=== PATIENT | male | born 1980 | race Caucasian/White ===

== ENCOUNTER 2019-10-12 12:54 | Emergency (ER) | payer SELFPAY ==
[2019-10-12 13:13] VITALS: BP 151/93; PULSE 92; RESP 18; TEMP 36.6; O2SAT 99
--- NOTE | 2019-10-12 13:37 | ED.SKABFB ---
HPI - Skin/Abscess/Foreign Bdy General Chief complaint: Skin/Abscess/Foreign Body Stated complaint: sore under left underarm Source: patient Mode of arrival: ambulatory Limitations: no limitations History of Present Illness HPI narrative: Patient presents with a a red warm tender area under his left axilla non fluctuant currently no fever or chills but does have a tender red a nonfluctuant area under his left underarm, has tried some owsu-kgu-ssiuoiz medications with minimal relief as the history of right abscess under his right axilla approximately 4 5 months ago and was treated. Currently has a pain level of about 7/10 has tried umot-[id number]-[id number] medications with some minimal relief. Currently the area is warm nonfluctuant no drainage and it is tender to touch. complaint: abscess/boil Onset (ago): day(s) Tetanus up to date: yes Location: LUE (left axilla) Severity: moderate Severity scale (1-10): 7 Quality: aching Pain Consistency: constant Relieving factors: immobilization and movement Exacerbating factors: none Context: none Related Data Allergies Allergy/AdvReac Type Severity Reaction Status Date / Time No Known Allergies Allergy Verified 05/06/19 20:55 Review of Systems Review of Systems: All systems reviewed & are unremarkable except as noted in HPI and below PMFSH Past Medical History Medical History No significant past medical history Skin abscess Surgical History Surgical History History of skin graft Family History Family History Father Carcinoma of colon Social History Social History Smoking packs per day: 0.5 Smoking cigarettes per day: 10.0 Smoking status: Current every day smoker Alcohol intake: current Substance use: never Exam Const: General: no acute distress Orientation/consciousness: patient oriented x3 HENMT: Head: normal to inspection Eyes: Conjunctivae: conjunctivae normal Pupils: Equal, round and reactive pupils present EOM: EOMs intact bilaterally Neck: Neck: normal visual inspection Chest: Chest palpation & inspection: normal inspection of the chest Resp: Effort & Inspection: normal respiratory effort Cardio: Rate: regular rate Rhythm: regular rhythm GI: Auscultation: normal bowel sounds Back/Spine/Pelvis: Back: no CVA tenderness Skin: General skin exam: normal color Rashes: no rashes Wounds: wounds noted ( area of about 3 cm in diameter under his left axilla non fluctuant red ) Neuro: General: patient oriented x3 and moves all extremities Extrem: General: normal to inspection Psych: Mental Status: mental status grossly normal Thought content: Yes Normal thought content present Course Course Emergency Course: abscess under his right axilla currently nonfluctuant not draining it is warm and tender to touch offer the patient pain medication but he says that is pretty comfortable at this time, it is nondraining, nonfluctuant is warm tender to touch and patient will be getting a IM shot of 1 g of ceftriaxone prior to discharge. Vital Signs Vital signs: Vital Signs Temperature 36.6 C 10/12/19 13:13 Pulse Rate 92 10/12/19 13:13 Respiratory Rate 18 10/12/19 13:13 Blood Pressure 151/93 H 10/12/19 13:13 Pulse Oximetry 99 10/12/19 13:13 Temperature 36.6 C 10/12/19 13:13 Pulse Rate 92 10/12/19 13:13 Respiratory Rate 18 10/12/19 13:13 Blood Pressure 151/93 H 10/12/19 13:13 Pulse Oximetry 99 10/12/19 13:13 MDM - Skin/Abscess/Foreign Bdy Differential Diagnosis Differential diagnosis: Likely abscess of skin or subcutaneous tissue Critical Care Time Critical Care Time Critical Care Time: No Discharge Plan Discharge Clinical Impression: Skin abscess Qualifiers: Site of cutaneous absce
[2019-10-12] MEDS: cefTRIAXone 1 GM VIAL IM (13:43)
== END 2019-10-12 14:04 | disposition home or self-care (01) ==
PROVIDERS: Emergency Provider Emergency Medicine
DX: L02.412 Cutaneous abscess of left axilla (principal); L03.112 Cellulitis of left axilla
CPT/HCPCS: 96372; 99283; J0696

== ENCOUNTER 2019-10-13 23:13 | Emergency (ER) | payer SELFPAY ==
[2019-10-13 23:26] VITALS: BP 154/92; PULSE 93; RESP 18; TEMP 36.6; O2SAT 97
--- NOTE | 2019-10-13 23:26 | ED.WOUNDLAC ---
HPI - Wound/Laceration General Chief Complaint: Wound/Laceration Stated Complaint: Boil on left armpit Time Seen by Provider: 10/13/19 23:26 Source: patient Mode of arrival: ambulatory Limitations: no limitations History of Present Illness HPI narrative: 39-year-old man with a history of axillary abscesses comes in today complaining of blood and pus draining from his left axilla where he was diagnosed with an abscess yesterday and placed on Augmentin. Patient states that he didn't realize it was draining. He denies fever, nausea, vomiting or arm symptoms such as numbness, tingling or weakness. Onset (ago): day(s) (2-3) Location: other ( Left axilla) Associated symptoms: pain and other ( drainage) Treatments prior to arrival: bandage, NSAIDS and other ( antibiotics) Related Data Allergies Allergy/AdvReac Type Severity Reaction Status Date / Time No Known Allergies Allergy Verified 05/06/19 20:55 Review of Systems Constitutional: Constitutional: Denies chills, Denies fever(s) and Denies weakness Eyes: Eyes: Denies change in vision and Denies photophobia ENT: Denies dysphagia, Denies nasal congestion and Denies sore throat Cardiovascular: Cardiovascular: Denies chest pain and Denies radiating jaw, neck or arm pain Respiratory: Respiratory: Denies cough, Denies dyspnea and Denies wheezing Gastrointestinal: Gastrointestinal: Denies abdominal pain, Denies nausea and Denies vomiting Genitourinary: Genitourinary: Denies hematuria, Denies oliguria and Denies dysuria Musculoskeletal: Musculoskeletal: Denies back pain, Denies arthralgias and Denies joint swelling Integumentary/Breasts: Skin/Breast: Reports as per HPI, Denies pruritus, Denies erythema and Denies rash Neurologic: Denies vertigo, Denies dizziness and Denies syncope Psychiatric: Psychiatric: Denies anxiety and Denies depression Hematologic/Lymphatic: Hematologic/Lymphatic: Denies easy bleeding and Denies easy bruising Allergic/Immunologic: Allergic/Immunologic: Denies lip swelling and Denies wheezing PMFSH Past Medical History Medical History No significant past medical history Skin abscess Surgical History Surgical History History of skin graft Social History Social History Smoking packs per day: 0.5 Smoking cigarettes per day: 10.0 Smoking status: Current every day smoker Alcohol intake: current Substance use: never Exam Const: General: alert Nutritional Appearance: thin Orientation/consciousness: patient oriented x3 Limitations: no limitations Other: mild acute distress. HENMT: Mouth: Yes moist mucous membranes Eyes: Conjunctivae: conjunctivae normal Pupils: Equal, round and reactive pupils present EOM: EOMs intact bilaterally Resp: Effort & Inspection: normal respiratory effort and not labored Auscultation: clear to auscultation bilaterally, no rales, no rhonchi and no wheezes Cardio: Rate: regular rate Rhythm: regular rhythm Heart sounds: no murmurs GI: GI Palp: Yes Soft to palpation, No Tenderness to palpation present (GI), Yes Guarding due to palpation present (GI) and Yes Rigid due to palpation Skin: General skin exam: normal color, no jaundice and no pallor Rashes: no rashes Other: 3 x 2 cm indurated area in the left axilla. Is minimal erythema. There is a central punctum that is draining blood and pus. Neuro: General: patient oriented x3, moves all extremities, no focal motor deficits and CN's II-XI intact bilaterally Speech: normal speech Extrem: General: normal to inspection and no clubbing, cyanosis or edema Psych: Appearance: grossly normal and well kempt Mental Status: mental status grossly normal Affect: normal affect Attitude: cooperative Thought content: Yes Normal thought content present Discharge Plan Discharge Clinical Im
[2019-10-14 00:20] VITALS: BP 130/75; PULSE 85; RESP 20; TEMP 36.6; O2SAT 98
== END 2019-10-14 00:28 | disposition home or self-care (01) ==
PROVIDERS: Emergency Provider Emergency Medicine
DX: L02.412 Cutaneous abscess of left axilla (principal); F17.200 Nicotine dependence, unspecified, uncomplicated
CPT/HCPCS: 87070; 87077; 87186; 87205; 99283

== ENCOUNTER 2020-10-07 08:48 | Emergency (ER) | payer OTHER, SELFPAY ==
--- NOTE | ~2020-10-07 | XR_ITS ---
EXAMINATION: XR elbow LT 2V DATE: 10/07/2020 09:24 INDICATION: Left elbow injury. TECHNIQUE: 2 views of left elbow were obtained. COMPARISON: None. FINDINGS: Bone alignment is normal. No fracture. Joint spaces are normal. There is an enthesophyte at lateral humeral epicondyle. No elbow joint effusion. IMPRESSION: 1. No fracture. Reviewed, dictated and finalized at location B. IMPRESSION: 1. No fracture.
[2020-10-07 09:00] VITALS: BP 153/90; PULSE 107; RESP 20; TEMP 36.7; O2SAT 98
--- NOTE | 2020-10-07 09:36 | WC.ED.TRAUMA ---
HPI - Trauma General Chief Complaint: Extremity Injury, Upper Stated Complaint: HURT ELBOW AT WORK Source: patient Mode of arrival: ambulatory Limitations: no limitations History of Present Illness HPI narrative: this is a 40-year-old male that works for [employer] that was doing some heavy lifting while at work causing some pain and tenderness in his medial aspect of his left elbow has good range of motion with some stronger brisk radial pulse on the left has tenderness in the medial aspect of his left elbow that he rates about a currently a 2/10 at occurred on Wednesday and has taking some ryuu-ova-xrybjyp medication. complaint: injury Onset (ago): day(s) Location: other ( left elbow) Location - Extremities: Left: elbow ( pain medial aspect of his elbow with palpation) Severity scale (1-10): 2 Associated symptoms: denies other symptoms Related Data Home Medications Medication Instructions Recorded Confirmed No Home Medications 10/07/20 10/07/20 Allergies Allergy/AdvReac Type Severity Reaction Status Date / Time No Known Allergies Allergy Verified 05/06/19 20:55 Review of Systems Review of Systems: All systems reviewed & are unremarkable except as noted in HPI and below PMFSH Past Medical History Medical History (Updated 10/07/20 @ 09:40 by Alex Nelson MD) No significant past medical history Skin abscess Surgical History Surgical History History of skin graft Family History Family History Father Carcinoma of colon Social History Social History Smoking packs per day: 0.5 Smoking cigarettes per day: 10.0 Smoking status: Current every day smoker Alcohol intake: current Substance use: never Exam Const: General: no acute distress and alert Orientation/consciousness: patient oriented x3 HENMT: Head: normal to inspection and contusion Eyes: Conjunctivae: conjunctivae normal Pupils: Equal, round and reactive pupils present Direct Ophthalmoscopy: no photophobia Neck: Neck: normal visual inspection, no lymphadenopathy and no meningeal signs Chest: Chest palpation & inspection: normal inspection of the chest Resp: Effort & Inspection: normal respiratory effort Cardio: Rate: regular rate Rhythm: regular rhythm : Testes: Testes normal Back/Spine/Pelvis: Back: no CVA tenderness Skin: General skin exam: normal color Rashes: no rashes Neuro: General: patient oriented x3, moves all extremities, no meningeal signs and no focal motor deficits Extrem: Other: Tender medial aspect of left elbow with palpation has good range of motion. Psych: Appearance: grossly normal Mental Status: mental status grossly normal Affect: normal affect Course Course Emergency Course: Patient here today pain level is 2/10 is comfortable, and reviewed his x-ray findings with patient and advised brace that he currently has and [id number] naproxen. Vital Signs Vital signs: Vital Signs Temperature 36.7 C 10/07/20 09:00 Pulse Rate 107 H 10/07/20 09:00 Respiratory Rate 20 10/07/20 09:00 Blood Pressure 153/90 H 10/07/20 09:00 Pulse Oximetry 98 10/07/20 09:00 Temperature 36.7 C 10/07/20 09:00 Pulse Rate 107 H 10/07/20 09:00 Respiratory Rate 20 10/07/20 09:00 Blood Pressure 153/90 H 10/07/20 09:00 Pulse Oximetry 98 10/07/20 09:00 Critical Care Time Critical Care Time Critical Care Time: No Discharge Plan Discharge Clinical Impression: Elbow strain Qualifiers: Encounter type: initial encounter Laterality: left Qualified Code(s): S46.912A - Strain of unspecified muscle, fascia and tendon at shoulder and upper arm level, left arm, initial encounter Patient Disposition: Home, Self-Care Condition: Stable Instructions: Antibiotic Form, Elbow Sprain (ED) Additional Instructions:
== END 2020-10-07 09:50 | disposition home or self-care (01) ==
PROVIDERS: Emergency Provider Emergency Medicine
DX: S46.912A Strain of unspecified muscle, fascia and tendon at shoulder and upper arm level, left arm, initial encounter (principal); X50.9XXA Other and unspecified overexertion or strenuous movements or postures, initial encounter
CPT/HCPCS: 73070; 99282; 99283

== ENCOUNTER 2020-10-29 10:33 | Outpatient (RCR) | payer OTHER, SELFPAY ==
--- NOTE | 2020-10-29 11:57 | OTOPEVAL ---
Thank you for referring Joe Valdovinos to [facility].? The patient is scheduled to be seen for therapy? ____x/week for ___ weeks. Please review, sign, date and return this plan of care MARGOT. I agree with and certify that the following plan of care is medically necessary. Referring Physician Date Admitting Provider: Attending Provider: Marely Craven NP Referring Provider: *OT Outpatient Evaluation Start: 10/29/20 10:35 Freq: Status: Active Protocol: Document 10/29/20 10:45 [facility] (Rec: 10/29/20 11:57 [facility] [id number]) Therapy Assessment Status Assessment Status Assessment Status Evaluation Outpatient Past Medical History Integumentary History Hx Cellulitis Yes Hx Excision Skin Lesion Yes Hx Other Skin Disorders Yes: SKIN GRAFT Other History Hx Other Surgeries Yes: skin grafting to Rt. side body Evaluation Information Problem Diagnosis L elbow pain Onset 10/05/20 Cause L elbow pain Subjective Information Patient reports that he was at Query Text:As Reported By Patient/ work on 10/05/20 and picked up Family a package and immediately felt a twinge in his elbow resulting in pain at the medial elbow. Patient reports that he seen the [employer] SUPERVISOR who recommended therapy. Patient reports that he is currently on light duty at work and can still feel pain in his left elbow when he uses that arm to balance himself with cleaning tasks and anytime he moves it too much. Patient reports that he has been trying to avoid all lifting but it is difficult to care for his 1 year old daughter. Patient reports that if he uses his left hand/arm to reach for something, move it to much, and/or lift something it is very painful. 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
--- NOTE | 2020-12-10 09:00 | OTOPEVAL ---
Thank you for referring Joe Valdovinos to [facility].? The patient is scheduled to be seen for therapy? ____x/week for ___ weeks. Please review, sign, date and return this plan of care MARGOT. I agree with and certify that the following plan of care is medically necessary. Referring Physician Date Admitting Provider: Attending Provider: Marely Craven NP Referring Provider: *OT Outpatient Evaluation Start: 10/29/20 10:35 Freq: Status: Active Protocol: Document 12/10/20 08:04 [facility] (Rec: 12/10/20 08:59 [facility] [id number]) Therapy Assessment Status Assessment Status Assessment Status Discharge Outpatient Past Medical History Integumentary History Hx Cellulitis Yes Hx Excision Skin Lesion Yes Hx Other Skin Disorders Yes: SKIN GRAFT Other History Hx Other Surgeries Yes: skin grafting to Rt. side body Evaluation Information Problem Subjective Information Patient reports that he woke Query Text:As Reported By Patient/ up feeling pain/sore all over Family his body secondary to not taking Aleve last night. He reports that all of his joints hurt and it took him longer to walk to therapy this morning. Patient reports that his left elbow doesnt hurt as much as it did and he feels that he has gotten some strength back. 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 Pain Assessment Timing of Pain Assessment Timing of Pain Assessment Re-assessment Self Report Self Report Pain Level 0 Pain Score Pain Score 0: Self Report Additional Pain Score Comments patient reports 4/10 in all joints: shoulders, hips, and wrists, etc. Upper Extremity Range of Motion Elbow/Forearm Range of Motion Left Elbow Flexion - Active 150 Elbow Extension - Active 0 Upper Extremity Muscle Strength Testing General Upper Extremity Strength Gross Upper Extremity Strength Comments L elbow: 4+/5 Hand Rn Supplemental/Pinch Strength Assessment Hand Left Rn Supplemental Strength (lbs) 62 General Exercise General Exercises Side Left Exercise Description PROM for L elbow flexion and Query Text:Record Sets, Reps, extension, supination/ Resistance, and Position pronation x 8 min PROM for wrist flexion and wrist extension with elbow held into extension x 3 reps
== END 2020-12-10 10:09 | disposition home or self-care (01) ==
LOC: CHSOT 10:33
PROVIDERS: PCP Nurse Practitioner Family; Visit Provider Nurse Practitioner Family
DX: M25.522 Pain in left elbow (principal)
CPT/HCPCS: 97035; 97110; 97140; 97165

== ENCOUNTER 2020-12-10 13:24 | Outpatient (CLI) | payer SELFPAY ==
[2020-12-10 13:41] LABS: Basophils Absolute Auto 0.09 K/mm3 (0.00-0.10); Basophils Percent Auto 0.8 % (0.0-1.0); Eosinophils Absolute Auto 0.22 K/mm3 (0.02-0.50); Eosinophils Percent Auto 2.1 % (1.0-6.0); Hematocrit 39.9 % (40.0-54.0); Immature Granulocyte Absolute 0.03 K/mm3 (0.00-0.00); Immature Granulocyte Percent A 0.3 % (0.0-0.0); Lymphocytes Absolute Auto 3.01 K/mm3 (1.10-4.50); Lymphocytes Percent Auto 28.3 % (18.0-42.0); Mean Corpuscular HGB Conc 32.6 g/dL (32.0-36.0); Mean Corpuscular Hemoglobin 30.4 pg (27.0-31.0); Mean Corpuscular Volume 93.4 fL (78.0-102.0); Mean Platelet Volume 8.3 fl (8.7-11.0); Monocytes Absolute Auto 1.19 K/mm3 (0.10-0.90); Monocytes Percent Auto 11.2 % (2.0-11.0); Neutrophils Absolute Auto 6.1 K/mm3 (1.7-7.2); Neutrophils Percent Auto 57.3 % (50.0-70.0); Platelet Count Result 432 K/mm3 (150-420); Red Blood Count 4.27 M/mm3 (4.70-6.10); Red Cell Distribution Width 14.6 % (11.6-14.4); White Blood Count 10.6 K/mm3 (4.8-10.8)
[2020-12-10 14:25] LABS: Rheumatoid Factor Screen Negative (Negative)
[2020-12-10 14:41] LABS: Alanine Aminotransferase 16 U/L (16-63); Albumin Level 3.4 g/dL (3.4-5.0); Alkaline Phosphatase 117 U/L (46-116); Anion Gap 15 mmol/L (8-16); Aspartate Amino Transferase 15 U/L (15-37); Bilirubin,Total 0.2 mg/dL (0.00-1.00); Blood Urea Nitrogen 6 mg/dL (7-18); Carbon Dioxide 26 mmol/L (21-32); Chloride 105 mmol/L (98-108); Estimated Glomerular Filt Rate > 60; Glucose 75 mg/dL (70-99); Osmolality Calculated 298 mOsm/kg (285-295); Potassium 3.9 mmol/L (3.5-5.1); Sodium 146 mmol/L (136-145); Total Protein 7.8 g/dL (6.4-8.2)
[2020-12-10 14:54] LABS: Thyroid Stimulating Hormone 0.93 uIU/mL (0.36-3.74)
[2020-12-10 14:55] LABS: Erythrocyte Sedimentation Rate 45 mm/hr (0-15)
[2020-12-13 20:45] LABS: CRP, High Sensitivity >10.0 mg/L (***)
== END 2020-12-10 13:25 | disposition home or self-care (01) ==
LOC: CHSLAB 13:30
PROVIDERS: PCP Nurse Practitioner Family; Visit Provider Nurse Practitioner Family
DX: M25.50 Pain in unspecified joint (principal); M25.522 Pain in left elbow; R63.4 Abnormal weight loss
CPT/HCPCS: 36415; 80053; 84443; 85025; 85652; 86141; 86430

== ENCOUNTER 2022-12-13 17:33 | Emergency (ER) | payer SELFPAY ==
[2022-12-13 17:44] VITALS: BP 130/78; PULSE 111; RESP 20; TEMP 36.6; O2SAT 100
--- NOTE | 2022-12-13 20:19 | PC.NURSE ---
called twice for triage no answer.
== END 2022-12-13 20:19 | disposition left against medical advice (07) ==
DX: M54.50 Low back pain, unspecified (principal)
CPT/HCPCS: 99199

== ENCOUNTER 2024-03-30 12:20 | Inpatient (IN) | payer SELFPAY ==
[2024-03-30] VITALS (7 sets, daily range): BP systolic 135–169; BP diastolic 90–102; PULSE 82–119; RESP 14–20; TEMP 36.8–37.2; O2SAT 90–96; BMI 17.5
--- NOTE | ~2024-03-30 | CT_ITS ---
EXAMINATION: CT diagnostic chest wo con DATE: 04/01/2024 19:41 INDICATION: Shortness of breath pneumonia TECHNIQUE: Computed tomography (CT) of the chest was performed with 100 mL Omnipaque-350 intravenous contrast. Automated exposure control and iterative reconstruction technique were employed. The dose-l ength product was 124.21 mGy-cm. COMPARISON: X-ray chest 03/30/2024. FINDINGS: CHEST: Thoracic aorta: No significant dilation or calcification. Lung parenchyma and airways: Segmental left lower lobe consolidation. Patchy areas of acinar and tree -in-bud opacities in the right upper lobe. Moderate diffuse acinar and tree-in-bud opacities affectin g the remaining segments of the left lower lobe. Lingular scar. Thoracic inlet, axillae and chest wall: Partially visualized cystic lesion in the right lower neck me asuring up to 2.9 cm. 3.2 cm cystic lesion over the sternum. Mild symmetric gynecomastia No thyroid m ass. No axillary lymphadenopathy. Mediastinum: No mass or lymphadenopathy. Heart and pericardium: Normal heart size. No pericardial effusion. Coronary artery calcifications: Absent. Pleura: No effusion or mass. Upper abdomen: No significant finding. Thoracic bones: No acute osseous finding in the chest. Erosive appearing arthropathy at the sternocla vicular and sternomanubrial joints. IMPRESSION: Segmental left lower lobe consolidation concerning for pneumonia. Additional right upper lobe and left lower lobe acinar/tree-in-bud opacities may represent additional sites of infection. Subcutaneous cystic lesions in the right lower neck and anterior to the sternum. 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 Reviewed, dictated and finalized at location K. AGE MAKER IMPRESSION: Segmental left lower lobe consolidation concerning for pneumonia. Additional right upper lobe and left lower lobe acinar/tree-in-bud opacities ma y represent additional sites of infection. Subcutaneous cystic lesions in the right lower neck and anterior to the sternum . Sternoclavicular and sternomanubrial erosive change, correlate for history of i nflammatory/crystalline arthropathy.
--- NOTE | ~2024-03-30 | XR_ITS ---
EXAMINATION: XR chest 2V DATE: 03/30/2024 14:06 INDICATION: Cough and shortness of breath. TECHNIQUE: Frontal and lateral views of the chest were obtained. COMPARISON: None. FINDINGS: There are airspace opacities in left lower lobe, consistent with pneumonia. There may be a small left pleural effusion. No pneumothorax. The heart size is normal. IMPRESSION: 1. Left lower lobe pneumonia. 2. Possible small left pleural effusion. Reviewed, dictated and finalized at location A. RARY AGENT
--- NOTE | 2024-03-30 13:36 | ECG_ITS ---
Test Date: 2024-03-30 14:38:33 Measurements Intervals [place] Rate: 80 P: 71 VT: 152 QRS: 73 QRSD: 97 T: 70 QT: 389 QTc: 451 Interpretive Statements SINUS RHYTHM VOLTAGE CRITERIA FOR LVH BASELINE ARTIFACT- I, II, III, AVR, AVL, AVF, V1 BORDERLINE ECG No previous ECG available for comparison Electronically Signed On 03-30-2024 14:45:53 [employer] by Ventura Grewal D.O.
--- NOTE | 2024-03-30 13:36 | ED.SOB ---
HPI - SOB/Dyspnea General Chief Complaint: Shortness of Breath/Dyspnea <Shannon Cazares PA-C - Last Filed: 03/30/24 13:38> Stated Complaint: trouble breathing <ADELE Gudino Last Filed: 03/30/24 13:38> Time Seen by Provider: 03/30/24 18:17 <Shannon Cazares PA-C - Last Filed: 03/30/24 13:38> Focused HPI: 43-year-old male presents to the emergency department for cough, congestion and dyspnea for the past few days. Patient states his family's recently sick with similar symptoms and were diagnosed with pneumonia. Reports a productive cough. Normally smokes half pack a day for 25 years. No history of COPD or asthma. GENERAL: Well-appearing, well-nourished, and in no acute distress. HEAD: Normocephalic, atraumatic. CHEST: Clear to auscultation. ?No respiratory distress. HEART: Regular rate and rhythm.? NEURO: ?Alert and oriented x3. Patient screened in triage and initial orders placed.? ?Additional care and disposition to be based upon?diagnostic testing and treatment. <Shannon Cazares PA-C - Last Filed: 03/30/24 13:38> Focused HPI: 43-year-old male presents to the emergency department for cough, congestion and dyspnea for the past few days. Patient states his family's recently sick with similar symptoms and were diagnosed with pneumonia. Reports a productive cough. Normally smokes half pack a day for 25 years. No history of COPD or asthma. GENERAL: Well-appearing, well-nourished, and in no acute distress. HEAD: Normocephalic, atraumatic. CHEST: Clear to auscultation. ?No respiratory distress. HEART: Regular rate and rhythm.? NEURO: ?Alert and oriented x3. Patient screened in triage and initial orders placed.? ?Additional care and disposition to be based upon?diagnostic testing and treatment. <ADELE Virk Last Filed: 03/30/24 20:42> Source: patient <ADELE Virk Last Filed: 03/30/24 20:42> Mode of arrival: ambulatory <Pamela Antunez PA-C - Last Filed: 03/30/24 20:42> Limitations: no limitations <Pamela Antunez PA-C - Last Filed: 03/30/24 20:42> History of Present Illness HPI Narrative: Agree with above HPI. Also reports jody ear pain and drainage. Denies fevers. Denies nausea, vomiting, diarrhea. Does admit to decreased appetite. <Pamela Antunez PA-C - Last Filed: 03/30/24 20:42> Related Data Home Medications: Home Medications Medication Instructions Recorded Confirmed No Home Medications 10/07/20 10/11/20 <Shannon Cazares PA-C - Last Filed: 03/30/24 13:38> Allergies/Adverse Reactions: Allergies Allergy/AdvReac Type Severity Reaction Status Date / Time No Known Allergies Allergy Verified 12/10/20 10:55 <Shannon Cazares PA-C - Last Filed: 03/30/24 13:38> Review of Systems Review of Systems: All systems reviewed & are unremarkable except as noted in HPI. <Pamela Antunez PA-C - Last Filed: 03/30/24 20:42> All systems reviewed & are unremarkable except as noted in HPI and below <Pamela Antunez PA-C - Last Filed: 03/30/24 20:42> PMFSH Past Medical History Medical History: Medical History Cigarette nicotine dependence No significant past medical history Skin abscess <Shannon Cazares PA-C - Last Filed: 03/30/24 13:38> Surgical History Surgical History: Surgical History History of skin graft <Shannon Cazares PA-C - Last Filed: 03/30/24 13:38> Family History Family History: Family History Father Carcinoma of colon <Shannon Cazares PA-C - Last Filed: 03/30/24 13:38> Social History Social History: Social History Smoking packs per day: 0.5 Smoking cigarettes per day: 10.0 Smoking status: Current every day smoker Alcohol intake: current Alcohol use details: 3-4 beers per day Substance use: never Substance use type: does not use Occupation/Education: occupation <Shannon Cazares PA-C - Last Filed: 03/30/24 13:38> Exam Narrative: GENERAL: Well appearing, thin, non-toxic, in no acute distress. HEAD: Normocephalic, atraumatic. TM: Jody TM perforation, R>L with erythema diffusely throughout TMs, diffuse tenderness with any palpation of ear/pinna jody. NECK: Chronic cyst like structures to R anterolateral neck, L posterolateral neck. No focal tenderness. RESPIRATORY: Airway patent, respirations nonlabored. Diffuse rhonchi in lower lobes jody, worst in LLL. No stridor distress. Frequent coughing on exam. CARDIOVASCULAR: Regular rate and rhythm without murmurs, rubs, or gallops. MUSCULOSKELETAL: Moves all extremities. No gross deformities. SKIN: Warm, dry, normal color. NEURO: A&O X3. Speech clear. PSYCHIATRIC: Appropriate mood and affect. Normal interaction. <Pamela Antunez PA-C - Last Filed: 03/30/24 20:42> Course Vital Signs Vital signs: Vital Signs Temperature 98.2 F 03/30/24 12:23 Pulse Rate 89 03/30/24 12:23 Respiratory Rate 20 03/30/24 12:23 Blood Pressure 169/102 H 03/30/24 12:23 Pulse Oximetry 96 03/30/24 12:23 Oxygen Delivery Room Air 03/30/24 12:23 Temperature 98.4 F 03/30/24 17:19 Pulse Rate 82 03/30/24 19:31 Respiratory Rate 16 03/30/24 19:31 Blood Pressure 162/96 H 03/30/24 19:31 Pulse Oximetry 96 03/30/24 19:31 Oxygen Delivery Room Air 03/30/24 12:23 <Shannon Cazares PA-C - Last Filed: 03/30/24 13:38> Vital Signs Temperature 98.2 F 03/30/24 12:23 Pulse Rate 89 03/30/24 12:23 Respiratory Rate 20 03/30/24 12:23 Blood Pressure 169/102 H 03/30/24 12:23 Pulse Oximetry 96 03/30/24 12:23 Oxygen Delivery Room Air 03/30/24 12:23 Temperature 98.4 F 03/30/24 17:19 Pulse Rate 82 03/30/24 19:31 Respiratory Rate 16 03/30/24 19:31 Blood Pressure 162/96 H 03/30/24 19:31 Pulse Oximetry 96 03/30/24 19:31 Oxygen Delivery Room Air 03/30/24 12:23 <Pamela Antunez PA-C - Last Filed: 03/30/24 20:42> MDM - SOB/Dyspnea MDM Narrative Medical decision making narrative: Patient presented to ED with nearly week-long history of URI symptoms. Family members have recently been diagnosed with pneumonia. Patient mildly hypertensive upon arrival. Improved without intervention. He is afebrile here. Oxygen ranging from 90-92% on room air upon my evaluation. CBC with white blood cell count of 12.9. CMP with sodium of 132, potassium low at 2.6, chloride low at 85. Magnesium within normal limits. BMP within normal range. Viral swabs are negative. Chest x-ray consistent with left lower lobe pneumonia with small left pleural effusion. Consistent with clinical picture. Given profound hypokalemia with new pneumonia, will admit for further evaluation, electrolyte management, IV antibiotics. 40meq IV/PO KCl given. Rocephin/azithro started in the ED. Blood cx obtained. Discussed case with Mili BRAY hospitalist, accepted patient for admission. Patient in agreement with plan and need for admission. Patient was complaining of bilateral ear pain and drainage. Exam is consistent with bilateral TM perforation. Ofloxacin ear drops started in the ED. <Pamela Antunez PA-C - Last Filed: 03/30/24 20:42> Medical Records Attestation: I reviewed the patient's medical records. <Pamela Antunez PA-C - Last Filed: 03/30/24 20:42> Lab Data Attestation: I reviewed the patient's lab results. <Pamela Antunez PA-C - Last Filed: 03/30/24 20:42> Result diagrams: 03/30/24 14:38 03/30/24 14:38 <Shannon Cazares PA-C - Last Filed: 03/30/24 13:38> Labs: Lab Results 03/30/24 Range/Units 14:38 WBC 12.9 H (4.5-10.0) K/mm3 RBC 4.28 L (4.6-6.20) M/mm3 Hgb 13.3 L (14.0-18.0) g/dL Hct 39.1 L (42.0-52.0) % MCV 91.4 (80-100) fl MCH 31.1 (26-34) pg MCHC 34.0 (32-36) g/dl RDW 14.5 (11.5-14.5) % Plt Count 428 H (150-375) k/mm3 MPV 8.7 (7.4-10.4) fl Immature Gran % (Auto) 0.9 H (0-0.5) % Neut % (Auto) 68.1 (45.5-73.1) % Lymph % (Auto) 17.0 L (18.3-44.2) % [place] % (Auto) 12.6 H (2.6-8.5) % Eos % (Auto) 0.5 (0-4.4) % Baso % (Auto) 0.9 (0.2-1.2) % Lymph # (Auto) 2.20 (0.9-3.2) K/mm3 [place] # (Auto) 1.6 H (0.1-0.6) K/mm3 Eos # (Auto) 0.1 (0-0.3) K/mm3 Baso # (Auto) 0.1 (0.0-0.1) K/mm3 Abs Immat Gran (auto) 0.12 H (0.00-0.031) K/mm3 Absolute Neuts (auto) 8.8 H (1.3-6.7) K/mm3 Absolute Nucleated RBC 0.000 (0.0-0.012) K/mm3 Nucleated RBC % 0.0 (0.0-0.2) % Sodium 132 L (137-145) mmol/L Potassium 2.6 L* (3.4-5.0) mmol/L Chloride 85 L (98-107) mmol/L Carbon Dioxide 35 H (22-30) mmol/L Anion Gap 12 (4-12) mmol/L BUN 5 L (9-20) mg/dL Creatinine 0.50 L (0.7-1.3) mg/dL Estim Creat Clear Calc 110 ml/min Estimated GFR > 60 (59 - ) Glucose 97 (65-110) mg/dL Calcium 8.8 (8.4-10.2) mg/dL Magnesium 1.9 (1.6-2.3) mg/dL Total Bilirubin 1.0 (0.2-1.3) mg/dL AST 31 (17-59) U/L ALT 17 (6-50) U/L Alkaline Phosphatase 104 (38-126) U/L NT-Pro-B Natriuret Pep 214 H (19.9-100) pg/mL Total Protein 9.0 H (6.3-8.2) g/dL Albumin 4.1 (3.5-5.1) g/dL Influenza A (RT-PCR) Negative (Negative) Influenza B (RT-PCR) Negative (Negative) RSV (RT-PCR) Negative (Negative) SARS-CoV-2 RNA (RT-PCR) Negative (Negative) <Shannon Cazares PA-C - Last Filed: 03/30/24 13:38> Lab Results 03/30/24 Range/Units 14:38 WBC 12.9 H (4.5-10.0) K/mm3 RBC 4.28 L (4.6-6.20) M/mm3 Hgb 13.3 L (14.0-18.0) g/dL Hct 39.1 L (42.0-52.0) % MCV 91.4 (80-100) fl MCH 31.1 (26-34) pg MCHC 34.0 (32-36) g/dl RDW 14.5 (11.5-14.5) % Plt Count 428 H (150-375) k/mm3 MPV 8.7 (7.4-10.4) fl Immature Gran % (Auto) 0.9 H (0-0.5) % Neut % (Auto) 68.1 (45.5-73.1) % Lymph % (Auto) 17.0 L (18.3-44.2) % [place] % (Auto) 12.6 H (2.6-8.5) % Eos % (Auto) 0.5 (0-4.4) % Baso % (Auto) 0.9 (0.2-1.2) % Lymph # (Auto) 2.20 (0.9-3.2) K/mm3 [place] # (Auto) 1.6 H (0.1-0.6) K/mm3 Eos # (Auto) 0.1 (0-0.3) K/mm3 Baso # (Auto) 0.1 (0.0-0.1) K/mm3 Abs Immat Gran (auto) 0.12 H (0.00-0.031) K/mm3 Absolute Neuts (auto) 8.8 H (1.3-6.7) K/mm3 Absolute Nucleated RBC 0.000 (0.0-0.012) K/mm3 Nucleated RBC % 0.0 (0.0-0.2) % Sodium 132 L (137-145) mmol/L Potassium 2.6 L* (3.4-5.0) mmol/L Chloride 85 L (98-107) mmol/L Carbon Dioxide 35 H (22-30) mmol/L Anion Gap 12 (4-12) mmol/L BUN 5 L (9-20) mg/dL Creatinine 0.50 L (0.7-1.3) mg/dL Estim Creat Clear Calc 110 ml/min Estimated GFR > 60 (59 - ) Glucose 97 (65-110) mg/dL Calcium 8.8 (8.4-10.2) mg/dL Magnesium 1.9 (1.6-2.3) mg/dL Total Bilirubin 1.0 (0.2-1.3) mg/dL AST 31 (17-59) U/L ALT 17 (6-50) U/L Alkaline Phosphatase 104 (38-126) U/L NT-Pro-B Natriuret Pep 214 H (19.9-100) pg/mL Total Protein 9.0 H (6.3-8.2) g/dL Albumin 4.1 (3.5-5.1) g/dL Influenza A (RT-PCR) Negative (Negative) Influenza B (RT-PCR) Negative (Negative) RSV (RT-PCR) Negative (Negative) SARS-CoV-2 RNA (RT-PCR) Negative (Negative) <Pamela Antunez PA-C - Last Filed: 03/30/24 20:42> Imaging Data Attestation: I personally reviewed and interpreted this imaging study as follows: <Pamela Antunez PA-C - Last Filed: 03/30/24 20:42> Radiologist's impression: ITS Impressions Chest X-Ray 03/30/24 14:15 IMPRESSION: 1. Left lower lobe pneumonia. 2. Possible small left pleural effusion. <ADELE Virk Last Filed: 03/30/24 20:42> ECG Data EKG #1: Attestation: I personally reviewed and interpreted this ECG as follows: <Pamela Antunez PA-C - Last Filed: 03/30/24 20:42> ECG completion date: 03/30/24 <Pamela Antunez PA-C Last Filed: 03/30/24 20:42> ECG completion time: 14:38 <ADELE Virk Last Filed: 03/30/24 20:42> EKG Interpretation: normal rate (80), sinus rhythm, non-specific ST changes and other (LVH) <ADELE Virk Last Filed: 03/30/24 20:42> Discharge Plan Discharge Clinical Impression: Pneumonia, Hypokalemia, Pleural effusion on left, Rupture of both tympanic membranes <Shannon Cazares PA-C - Last Filed: 03/30/24 13:38> Patient Disposition: Still a Patient <ADELE Gudino Last Filed: 03/30/24 13:38> Condition: Stable <ADELE Gudino Last Filed: 03/30/24 13:38> Prescriptions: No Action No Home Medications <ADELE Gudino Last Filed: 03/30/24 13:38> Follow-up/Referrals: PHYSICIAN,[facility] [Non-Staff] - <Shannon Cazares PA-C - Last Filed: 03/30/24 13:38>
[2024-03-30 14:48] LABS: Basophils Absolute Auto 0.1 K/mm3 (0.0-0.1); Basophils Percent Auto 0.9 % (0.2-1.2); Eosinophils Absolute Auto 0.1 K/mm3 (0-0.3); Eosinophils Percent Auto 0.5 % (0-4.4); Hematocrit 39.1 % (42.0-52.0); Hemoglobin 13.3 g/dL (14.0-18.0); Immature Granulocyte Absolute 0.12 K/mm3 (0.00-0.031); Immature Granulocyte Percent A 0.9 % (0-0.5); Mean Corpuscular Hemoglobin 31.1 pg (26-34); Mean Corpuscular Volume 91.4 fl (80-100); Mean Platelet Volume 8.7 fl (7.4-10.4); Monocytes Absolute Auto 1.6 K/mm3 (0.1-0.6); Monocytes Percent Auto 12.6 % (2.6-8.5); Neutrophils Absolute Auto 8.8 K/mm3 (1.3-6.7); Neutrophils Percent Auto 68.1 % (45.5-73.1); Platelet Count Result 428 k/mm3 (150-375); Red Blood Count 4.28 M/mm3 (4.6-6.20); Red Cell Distribution Width 14.5 % (11.5-14.5); White Blood Count 12.9 K/mm3 (4.5-10.0)
[2024-03-30 14:59] LABS: Alanine Aminotransferase 17 U/L (6-50); Albumin Level 4.1 g/dL (3.5-5.1); Alkaline Phosphatase 104 U/L (38-126); Anion Gap 12 mmol/L (4-12); Aspartate Amino Transferase 31 U/L (17-59); Blood Urea Nitrogen 5 mg/dL (9-20); Calcium 8.8 mg/dL (8.4-10.2); Carbon Dioxide 35 mmol/L (22-30); Chloride 85 mmol/L (98-107); Estimated CRCL calculation 110 ml/min; Estimated Glomerular Filt Rate > 60; Glucose 97 mg/dL (65-110); Magnesium 1.9 mg/dL (1.6-2.3); Potassium 2.6 mmol/L (3.4-5.0); Sodium 132 mmol/L (137-145)
[2024-03-30 15:03] LABS: NT Pro B Type Natriuretic Pept 214 pg/mL (19.9-100)
[2024-03-30 15:23] LABS: Influenza A QL RT-PCR Negative (Negative); Influenza B QL RT-PCR Negative (Negative); RSV RNA, RT-PCR Negative (Negative); SARS-CoV-2 RNA PCR Negative (Negative)
[2024-03-30] MEDS: POTASSIUM CHLORIDE 20 MEQ ER TABLET 40 MEQ PO (19:17)
[2024-03-30] MEDS: SODIUM CHLORIDE 0.9% IV 1,000 ML 999 ML IV CONT (19:17)
[2024-03-30] MEDS: POTASSIUM CHLORIDE INJ 40 MEQ in SODIUM CHLORIDE 0.9% IV 500 ML 130 MEQ IVPB (19:20)
[2024-03-30] MEDS: AZITHROMYCIN 500 MG/NS 250 ML 500 MG/250 ML BAG 250 MG IVPB (19:29)
[2024-03-30] MEDS: OFLOXACIN 0.3% OPHTH SOLN 5 ML BTL 5 DROP EACH EAR (20:26)
--- NOTE | 2024-03-30 20:40 | P.HP_ITS ---
H&P: HPI History of Present Illness Date/Time: 03/30/24 20:40 Chief Complaint: Cough, shortness of breath, ear pain. Narrative: This is a previously healthy 43-year-old male who presented to the emergency department via private vehicle for evaluation of cough, shortness of breath, and ear pain. The patient provides the following history. He has not been feeling well for nearly a week with symptoms to include congestion, cough productive of whitish colored phlegm, and bilateral ear pain. His coughing fits are so severe that he reports having several episodes of post-tussive emesis. The last 24 hours he has started to feel a bit short of breath. His appetite has been poor. Sick contacts include 2 family members who were recently diagnosed pneumonia. He has been taking [id number] cold and flu medication without much benefit. He denies fever, sweats, sinus congestion, sore throat, abdominal pain, nausea, vomiting, and diarrhea. In the ED: He was afebrile on arrival with stable vital signs. Labs were significant for WBC count of 12.9, hemoglobin 13.3, sodium 132, potassium 2.6, chloride 85, carbon dioxide 35, BUN 5, creatinine 0.50, proBNP 214. He was negative for influenza, RSV, and COVID. Chest x-ray showed left lower lobe pneumonia possible small left pleural effusion. In the ED he was started on ofloxacin due to evidence of bilateral tympanic membrane rupture. He was also given potassium chloride and was started on azithromycin and ceftriaxone. He is being admitted in this setting for further treatment. Review of Systems Review of Systems: 12 systems were reviewed and are negativ e except for as per HPI. [facility] Past Medical History Medical History Cigarette nicotine dependence Skin abscess Surgical History Surgical History History of skin graft Family History Family History Father Carcinoma of colon Heart disease Mother Cancer Social History Social History (Updated 03/31/24 @ 00:12 by Mili Capps PA-C) Social History: Surrogate medical decision maker: Rachana Auguste. Code status: Full code. Smoking packs per day: 0.5 Smoking cigarettes per day: 10.0 Smoking status: Current some day smoker Tobacco type: cigarettes Additional smoking assessment comments: stopped recently Alcohol intake: current Drinks per week: 1 Alcohol use details: 3-4 beers per day Substance use: never Substance use type: does not use Do You Feel Safe in your Home?: Yes Lack of Transportation: YES Lack of Food: Never True Current Housing: I Have Housing Concerned About Future Housing: No Difficulty Paying Gas/Electric Bills: YES Difficulty Paying for Meds: YES Currently Unemployed: YES Education: High School Diploma/GED Difficulty w/ Childcare or Family Care: No Spiritual care concerns: No Meds Home Medications and Allergies Home Medications Medication Instructions Recorded Confirmed Type ibuprofen 600 mg tablet 600 mg PO Q4H PRN Mild Pain (Scale 03/30/24 03/30/24 History Score 1-4) melatonin 5 mg tablet 5 mg PO HS PRN Sleep 03/30/24 03/30/24 History Allergies Allergy/AdvReac Type Severity Reaction Status Date / Time No Known Allergies Allergy Verified 12/10/20 10:55 Vital Signs Vital Signs - 24 hr 03/30/24 12:23 03/30/24 14:43 03/30/24 17:19 Temperature 98.2 F 98.4 F Pulse Rate 89 92 88 Respiratory Rate 20 14 16 Blood Pressure 169/102 H 135/90 140/99 H Pulse Oximetry 96 93 90 Oxygen Delivery Room Air 03/30/24 19:31 Temperature Pulse Rate 82 Respiratory Rate 16 Blood Pressure 162/96 H Pulse Oximetry 96 Oxygen Delivery Exam Narrative: General: Mildly ill-appearing gentleman the semi-Ricci position in bed in no acute distress. Weight: 49.3 kg. BMI: 17.5. HEENT: PERRL, EOMI. Sclera anicteric. Tacky mucous membranes. Neck: Supple. Respiratory: Respirations are nonlabored and lungs are clear to auscultation. Cardiovascular: Tachycardic with normal S1-S2 Gastrointestinal: Abdomen is soft, flat, nontender, and nondistended with positive bowel sounds. Skin: Warm and dry. No rash or lesions on limited exam. Extremities: No cyanosis, clubbing, or edema. Radial and pedal pulses intact. Neurological: Alert. Cranial nerves 2-12 are grossly intact. No gross focal deficits to casual conversation. Psychiatric: Pleasant and cooperative with normal mood and affect. Judgment and insight intact. H&P: Results Labs Labs: Short CBC 03/30/24 Range/Units 14:38 WBC 12.9 H (4.5-10.0) K/mm3 Hgb 13.3 L (14.0-18.0) g/dL Hct 39.1 L (42.0-52.0) % Plt Count 428 H (150-375) k/mm3 BMP 03/30/24 14:38 Sodium 132 L Potassium 2.6 L* Chloride 85 L Carbon Dioxide 35 H BUN 5 L Creatinine 0.50 L Glucose 97 Calcium 8.8 Liver Function 03/30/24 Range/Units 14:38 Total Bilirubin 1.0 (0.2-1.3) mg/dL AST 31 (17-59) U/L ALT 17 (6-50) U/L Alkaline Phosphatase 104 (38-126) U/L Albumin 4.1 (3.5-5.1) g/dL Imaging Chest X-Ray 03/30/24 14:15 IMPRESSION: 1. Left lower lobe pneumonia. 2. Possible small left pleural effusion. Assessment and Plan Assessment and plan (1) Left lower lobe pneumonia: Code(s): J18.9 - Pneumonia, unspecified organism Status: Acute (2) Rupture of both tympanic membranes: Code(s): H72.93 - Unspecified perforation of tympanic membrane, bilateral Status: Acute (3) Hypokalemia: Code(s): E87.6 - Hypokalemia Status: Acute (4) Skin abscess: Qualifiers: Laterality: left Site of cutaneous abscess: extremity Site of cutaneous abscess of extremity: axilla Qualified Code(s): L02.412 - Cutaneous abscess of left axilla Code(s): L02.91 - Cutaneous abscess, unspecified Status: Acute Plan The patient presented to the emergency department for evaluation of cough, ear pain, shortness of breath as detailed in HPI. Labs, imaging, EKG, and all reports were personally reviewed. Chest x-ray shows left lower lobe pneumonia for which he has been started on azithromycin and ceftriaxone. Attempt sputum for culture. Check Legionella and pneumococcal antigens as well as mycoplasma IgM. DuoNebs available if needed. Both tympanic membranes have ruptured, likely due to barotrauma from significant coughing, and he has been started on ofloxacin drops and will need to follow up with ENT as an outpatient. Analgesics are available. Potassium will be replaced and monitored. He has 2 skin abscesses/cysts on his neck which have been there for many years and have previously been incised. Check MRSA nares to rule out colonization. He could follow up with plastic surgery or Dermatology for definitive management. His home medications will be reviewed and resumed as appropriate. Findings and treatment plan were discussed with the patient. Questions were solicited and answered to satisfaction. The patient's medical management will be taken over by the hospitalist team in a.m. Quality VTE Prophylaxis VTE prophylaxis: pharmacologic ordered The patient has been admitted under observation status. Hospitalist MIPS Advance Care Plan I have confirmed that the patient's Advanced Care Plan is present, code status is documented, or surrogate decision maker is listed in patient medical record.: Yes Medication Reconciliation I have utilized all available resources to obtain, update and review the patients current medications (includes all prescriptions, OTC, herbals, cannabis, and nutritional supplements).: Yes
--- NOTE | 2024-03-30 21:38 | ADMGEN ---
This patient, Joe Valdovinos, was admitted to 2 Medical Room 258-01. Patient/family oriented to hospital policies and general routines including ID bracelet, bed and alarms, visiting hours, pain management, procedures, bathroom and other care routines, personal items, smoking policy, room service/diet, and visiting hours. Information on how to activate the Rapid Response Team has been discussed. Patient/Family are encouraged to report perceived risks to care and to ask questions if they do not understand what they are told or what they should do.
[2024-03-30 22:37] LABS: MRSA (PCR) NOT DETECTED (NOT DETECTE)
[2024-03-31] VITALS (13 sets, daily range): BP systolic 146–169; BP diastolic 92–98; PULSE 80–102; RESP 16–20; TEMP 36.5–37; O2SAT 94–100; BMI 18.2
[2024-03-31] MEDS: SODIUM CHLORIDE 0.9% IV 1,000 ML 75 ML IV CONT (00:20)
[2024-03-31] MEDS: MELATONIN 5 MG TABLET PO ×2 (00:34→21:59)
[2024-03-31] MEDS: guaiFENesin/CODEINE (*CRX) 200/20 MG 10 ML SYRUP PO (00:34)
[2024-03-31] MEDS: ACETAMINOPHEN 325 MG TABLET 650 MG PO (00:34)
[2024-03-31 00:37] LABS: Anion Gap 5 mmol/L (4-12); Blood Urea Nitrogen 6 mg/dL (9-20); Calcium 8.2 mg/dL (8.4-10.2); Carbon Dioxide 34 mmol/L (22-30); Chloride 94 mmol/L (98-107); Estimated CRCL calculation 136 ml/min; Estimated Glomerular Filt Rate > 60; Glucose 105 mg/dL (65-110); Potassium 3.5 mmol/L (3.4-5.0); Sodium 133 mmol/L (137-145)
[2024-03-31 06:05] LABS: Hematocrit 36.2 % (42.0-52.0); Hemoglobin 12.1 g/dL (14.0-18.0); Mean Corpuscular HGB Conc 33.4 g/dl (32-36); Mean Corpuscular Hemoglobin 31.1 pg (26-34); Mean Corpuscular Volume 93.1 fl (80-100); Mean Platelet Volume 9.3 fl (7.4-10.4); Platelet Count Result 424 k/mm3 (150-375); Red Blood Count 3.89 M/mm3 (4.6-6.20); Red Cell Distribution Width 14.8 % (11.5-14.5); White Blood Count 12.3 K/mm3 (4.5-10.0)
[2024-03-31 06:15] LABS: Anion Gap 6 mmol/L (4-12); Blood Urea Nitrogen 4 mg/dL (9-20); Calcium 8.5 mg/dL (8.4-10.2); Carbon Dioxide 33 mmol/L (22-30); Chloride 96 mmol/L (98-107); Estimated CRCL calculation 141 ml/min; Estimated Glomerular Filt Rate > 60; Glucose 99 mg/dL (65-110); Magnesium 1.9 mg/dL (1.6-2.3); Potassium 3.2 mmol/L (3.4-5.0); Sodium 135 mmol/L (137-145)
[2024-03-31] MEDS: POTASSIUM CHLORIDE 20 MEQ ER TABLET 40 MEQ PO ×2 (06:36→12:24)
--- NOTE | 2024-03-31 08:41 | PC.NURSE ---
Spoke to pharmacist Netta regarding ear drops. Packaging states it is the ophthalmic solution. Clarifying if OK for patient to receive by otic route. OK per pharmacist to do so.
[2024-03-31] MEDS: ENOXAPARIN 40 MG/0.4 ML SYRINGE SUB-Q (09:25)
[2024-03-31] MEDS: OFLOXACIN 0.3% OPHTH SOLN 5 ML BTL 5 DROP EACH EAR ×2 (09:26→17:15)
--- NOTE | 2024-03-31 11:04 | P.PNIM_ITS ---
Progress Note: A&P Assessment and Plan (1) Left lower lobe pneumonia: Code(s): J18.9 - Pneumonia, unspecified organism Status: Acute (2) Rupture of both tympanic membranes: Code(s): H72.93 - Unspecified perforation of tympanic membrane, bilateral Status: Acute (3) Hypokalemia: Code(s): E87.6 - Hypokalemia Status: Acute (4) Skin abscess: Qualifiers: Laterality: left Site of cutaneous abscess: extremity Site of cutaneous abscess of extremity: axilla Qualified Code(s): L02.412 - Cutaneous abscess of left axilla Code(s): L02.91 - Cutaneous abscess, unspecified Status: Acute Plan This is a previously healthy 43-year-old male who presented to the emergency department via private vehicle for evaluation of cough, shortness of breath, and ear pain. The patient provides the following history. He has not been feeling well for nearly a week with symptoms to include congestion, cough productive of whitish colored phlegm, and bilateral ear pain. His coughing fits are so severe that he reports having several episodes of post-tussive emesis. The last 24 hours he has started to feel a bit short of breath. His appetite has been poor. Sick contacts include 2 family members who were recently diagnosed pneumonia. He has been taking [id number] cold and flu medication without much benefit. He denies fever, sweats, sinus congestion, sore throat, abdominal pain, nausea, vomiting, and diarrhea. In the ED: He was afebrile on arrival with stable vital signs. Labs were significant for WBC count of 12.9, hemoglobin 13.3, sodium 132, potassium 2.6, chloride 85, carbon dioxide 35, BUN 5, creatinine 0.50, proBNP 214. He was negative for influenza, RSV, and COVID. Chest x-ray showed left lower lobe pneumonia possible small left pleural effusion. In the ED he was started on ofloxacin due to evidence of bilateral tympanic membrane rupture. He was also given potassium chloride and was started on azithromycin and ceftriaxone. He is being admitted in this setting for further treatment. Left lower lobe pneumonia Bilateral tympanic membrane rupture on ofloxacin drops Hypokalemia Chronic neck cyst follow-up as an outpatient basis DVT prophylaxis Lovenox Code status full code Subjective Date/time seen: 03/31/24 11:04 Interval history: No overnight events. Feeling a little better. Still have cough with clear phlegm. Short of breath with exertion. Review of Systems Review of Systems: All systems reviewed & are unremarkable except as noted in HPI and below Exam Narrative: General: Mildly ill-appearing gentleman the semi-Ricci position in bed in no acute distress. HEENT: PERRL, EOMI. Sclera anicteric. Tacky mucous membranes. Neck: Supple. Respiratory: Respirations are nonlabored and lungs are clear to auscultation. Cardiovascular: Regular rate and rhythm with normal S1-S2 Gastrointestinal: Abdomen is soft, flat, nontender, and nondistended with positive bowel sounds. Skin: Warm and dry. No rash or lesions on limited exam. Extremities: No cyanosis, clubbing, or edema. Radial and pedal pulses intact. Neurological: Alert. Cranial nerves 2-12 are grossly intact. No gross focal deficits to casual conversation. Psychiatric: Pleasant and cooperative with normal mood and affect. Judgment and insight intact. Objective Data Vital Signs Vital Signs: Vital Signs - 24 hr 03/30/24 12:23 03/30/24 14:43 03/30/24 17:19 Temperature 98.2 F 98.4 F Pulse Rate 89 92 88 Respiratory Rate 20 14 16 Blood Pressure 169/102 H 135/90 140/99 H Pulse Oximetry 96 93 90 Oxygen Delivery Room Air 03/30/24 19:31 03/30/24 21:42 03/30/24 20:00 Temperature 98.9 F Pulse Rate 82 119 H 107 H Respiratory Rate 16 20 Blood Pressure 162/96 H 162/98 H Pulse Oximetry 96 93 Oxygen Delivery 03/30/24 23:28 03/31/24 00:00 03/31/24 03:58 Temperature 97.7 F Pulse Rate 119 H 84 102 H Respiratory Rate 20 18 Blood Pressure 169/98 H Pulse Oximetry 93 96 Oxygen Delivery Room Air 03/31/24 04:00 Temperature Pulse Rate 84 Respiratory Rate Blood Pressure Pulse Oximetry Oxygen Delivery Intake/Output Intake/Output: Intake & Output 03/28/24 03/29/24 03/30/24 03/31/24 23:59 23:59 23:59 23:59 Intake Total 1300 630 Balance 1300 630 Meds/Results Medications: Active Medications Generic Name Dose Route Start Last Admin Trade Name Freq PRN Reason Stop Dose Admin Acetaminophen 650 mg 03/30/24 20:44 03/31/24 00:34 Acetaminophen 325 Mg Tablet PO 650 mg Q4H PRN Administration Mild Pain (1-3) or Fever Albuterol/Ipratropium 3 ml 03/31/24 00:14 Ipratropium 0.5 Mg/Albuterol Sulfate 2.5 Mg Ampul.Neb 3 Ml INHALATION Q6HRT PRN Shortness Of Breath Or Wheezing Enoxaparin Sodium 40 mg 03/31/24 09:00 03/31/24 09:25 Enoxaparin 40 Mg/0.4 Ml Syringe SUB-Q 40 mg DAILY FROYLAN Administration Guaifenesin/Codeine Phosphate 10 ml 03/31/24 00:11 03/31/24 00:34 Guaifenesin/Codeine (*Crx) 200/20 Mg 10 Ml Syrup PO 10 ml Q4H PRN Administration Cough Ceftriaxone Sodium 1 gm in 50 mls @ 100 mls/hr 03/31/24 20:00 Rocephin 1 Gm/Ns 50 Ml IVPB Q24H FROYLAN Azithromycin 500 mg in 250 mls @ 250 mls/hr 03/31/24 20:00 Zithromax IVPB Q24H FROYLAN Sodium Chloride 1,000 mls @ 75 mls/hr 03/31/24 00:15 03/31/24 00:20 Normal Saline Iv IV CONT 03/31/24 13:34 75 mls/hr .[id number] ONE Administration Melatonin 5 mg 03/31/24 00:10 03/31/24 00:34 Melatonin 5 Mg Tablet PO 5 mg HS PRN Administration Sleep Ofloxacin 5 drop 03/31/24 09:00 03/31/24 09:26 Ofloxacin 0.3% Ophth Soln 5 Ml Btl EACH EAR 5 drop BID FROYLAN Administration Ondansetron HCl 4 mg 03/30/24 20:44 Ondansetron Inj 4 Mg/2 Ml Vial IV PUSH Q4H PRN Nausea Radiology Results: ITS Impressions Chest X-Ray 03/30/24 14:15 IMPRESSION: 1. Left lower lobe pneumonia. 2. Possible small left pleural effusion. Labs Labs: Laboratory Results - last 24 hr 03/30/24 03/30/24 03/31/24 14:38 21:23 00:14 WBC 12.9 H RBC 4.28 L Hgb 13.3 L Hct 39.1 L MCV 91.4 MCH 31.1 MCHC 34.0 RDW 14.5 Plt Count 428 H MPV 8.7 Immature Gran % (Auto) 0.9 H Neut % (Auto) 68.1 Lymph % (Auto) 17.0 L [place] % (Auto) 12.6 H Eos % (Auto) 0.5 Baso % (Auto) 0.9 Lymph # (Auto) 2.20 [place] # (Auto) 1.6 H Eos # (Auto) 0.1 Baso # (Auto) 0.1 Abs Immat Gran (auto) 0.12 H Absolute Neuts (auto) 8.8 H Absolute Nucleated RBC 0.000 Nucleated RBC % 0.0 Sodium 132 L 133 L Potassium 2.6 L* 3.5 Chloride 85 L 94 L Carbon Dioxide 35 H 34 H Anion Gap 12 5 BUN 5 L 6 L Creatinine 0.50 L 0.40 L Estim Creat Clear Calc 110 136 Estimated GFR > 60 > 60 Glucose 97 105 Calcium 8.8 8.2 L Magnesium 1.9 Total Bilirubin 1.0 AST 31 ALT 17 Alkaline Phosphatase 104 NT-Pro-B Natriuret Pep 214 H Total Protein 9.0 H Albumin 4.1 Nasal MRSA (PCR) Not detected Influenza A (RT-PCR) Negative Influenza B (RT-PCR) Negative RSV (RT-PCR) Negative SARS-CoV-2 RNA (RT-PCR) Negative 03/31/24 05:25 WBC 12.3 H RBC 3.89 L Hgb 12.1 L Hct 36.2 L MCV 93.1 MCH 31.1 MCHC 33.4 RDW 14.8 H Plt Count 424 H MPV 9.3 Immature Gran % (Auto) Neut % (Auto) Lymph % (Auto) [place] % (Auto) Eos % (Auto) Baso % (Auto) Lymph # (Auto) [place] # (Auto) Eos # (Auto) Baso # (Auto) Abs Immat Gran (auto) Absolute Neuts (auto) Absolute Nucleated RBC Nucleated RBC % Sodium 135 L Potassium 3.2 L Chloride 96 L Carbon Dioxide 33 H Anion Gap 6 BUN 4 L Creatinine 0.40 L Estim Creat Clear Calc 141 Estimated GFR > 60 Glucose 99 Calcium 8.5 Magnesium 1.9 Total Bilirubin AST ALT Alkaline Phosphatase NT-Pro-B Natriuret Pep Total Protein Albumin Nasal MRSA (PCR) Influenza A (RT-PCR) Influenza B (RT-PCR) RSV (RT-PCR) SARS-CoV-2 RNA (RT-PCR)
[2024-03-31] MEDS: guaiFENesin 12 HR 600 MG TABCR PO ×2 (12:25→19:55)
[2024-03-31] MEDS: IPRATROPIUM 0.5 MG/ALBUTEROL SULFATE 2.5 MG AMPUL.NEB 3 ML INHALATION ×2 (14:06→20:03)
[2024-03-31] MEDS: AZITHROMYCIN 500 MG/NS 250 ML 500 MG/250 ML BAG 250 MG IVPB (19:56)
[2024-04-01] VITALS (19 sets, daily range): BP systolic 144–164; BP diastolic 98–99; PULSE 75–109; RESP 18–20; TEMP 36.6–36.9; O2SAT 95–99
[2024-04-01] MEDS: IPRATROPIUM 0.5 MG/ALBUTEROL SULFATE 2.5 MG AMPUL.NEB 3 ML INHALATION ×4 (02:41→20:02)
[2024-04-01 05:51] LABS: Basophils Absolute Auto 0.1 K/mm3 (0.0-0.1); Basophils Percent Auto 0.8 % (0.2-1.2); Eosinophils Absolute Auto 0.2 K/mm3 (0-0.3); Eosinophils Percent Auto 2.2 % (0-4.4); Hematocrit 34.7 % (42.0-52.0); Hemoglobin 11.4 g/dL (14.0-18.0); Immature Granulocyte Absolute 0.04 K/mm3 (0.00-0.031); Immature Granulocyte Percent A 0.4 % (0-0.5); Lymphocytes Absolute Auto 2.48 K/mm3 (0.9-3.2); Lymphocytes Percent Auto 23.6 % (18.3-44.2); Mean Corpuscular HGB Conc 32.9 g/dl (32-36); Mean Corpuscular Hemoglobin 30.7 pg (26-34); Mean Corpuscular Volume 93.5 fl (80-100); Monocytes Absolute Auto 1.3 K/mm3 (0.1-0.6); Monocytes Percent Auto 12.3 % (2.6-8.5); Neutrophils Absolute Auto 6.4 K/mm3 (1.3-6.7); Neutrophils Percent Auto 60.7 % (45.5-73.1); Platelet Count Result 459 k/mm3 (150-375); Red Blood Count 3.71 M/mm3 (4.6-6.20); Red Cell Distribution Width 14.9 % (11.5-14.5); White Blood Count 10.5 K/mm3 (4.5-10.0)
[2024-04-01 06:05] LABS: Alanine Aminotransferase 12 U/L (6-50); Albumin Level 3.5 g/dL (3.5-5.1); Alkaline Phosphatase 79 U/L (38-126); Anion Gap 6 mmol/L (4-12); Aspartate Amino Transferase 21 U/L (17-59); Bilirubin,Total 0.3 mg/dL (0.2-1.3); Blood Urea Nitrogen 3 mg/dL (9-20); Calcium 8.9 mg/dL (8.4-10.2); Carbon Dioxide 30 mmol/L (22-30); Chloride 100 mmol/L (98-107); Estimated CRCL calculation 148 ml/min; Estimated Glomerular Filt Rate > 60; Glucose 106 mg/dL (65-110); Magnesium 1.9 mg/dL (1.6-2.3); Potassium 3.1 mmol/L (3.4-5.0); Sodium 136 mmol/L (137-145)
[2024-04-01] MEDS: ENOXAPARIN 40 MG/0.4 ML SYRINGE SUB-Q (09:24)
[2024-04-01] MEDS: guaiFENesin 12 HR 600 MG TABCR PO ×2 (09:24→20:19)
[2024-04-01] MEDS: POTASSIUM CHLORIDE 20 MEQ ER TABLET 40 MEQ PO (09:24)
[2024-04-01] MEDS: OFLOXACIN 0.3% OPHTH SOLN 5 ML BTL 5 DROP EACH EAR ×2 (09:24→17:16)
--- NOTE | 2024-04-01 12:05 | PM.IMPN ---
Progress Note: A&P Assessment and Plan (1) Left lower lobe pneumonia: Code(s): J18.9 - Pneumonia, unspecified organism Status: Acute (2) Rupture of both tympanic membranes: Code(s): H72.93 - Unspecified perforation of tympanic membrane, bilateral Status: Acute (3) Hypokalemia: Code(s): E87.6 - Hypokalemia Status: Acute (4) Skin abscess: Qualifiers: Laterality: left Site of cutaneous abscess: extremity Site of cutaneous abscess of extremity: axilla Qualified Code(s): L02.412 - Cutaneous abscess of left axilla Code(s): L02.91 - Cutaneous abscess, unspecified Status: Acute Plan This is a previously healthy 43-year-old male who presented to the emergency department via private vehicle for evaluation of cough, shortness of breath, and ear pain. The patient provides the following history. He has not been feeling well for nearly a week with symptoms to include congestion, cough productive of whitish colored phlegm, and bilateral ear pain. His coughing fits are so severe that he reports having several episodes of post-tussive emesis. The last 24 hours he has started to feel a bit short of breath. His appetite has been poor. Sick contacts include 2 family members who were recently diagnosed pneumonia. He has been taking [id number] cold and flu medication without much benefit. He denies fever, sweats, sinus congestion, sore throat, abdominal pain, nausea, vomiting, and diarrhea. In the ED: He was afebrile on arrival with stable vital signs. Labs were significant for WBC count of 12.9, hemoglobin 13.3, sodium 132, potassium 2.6, chloride 85, carbon dioxide 35, BUN 5, creatinine 0.50, proBNP 214. He was negative for influenza, RSV, and COVID. Chest x-ray showed left lower lobe pneumonia possible small left pleural effusion. In the ED he was started on ofloxacin due to evidence of bilateral tympanic membrane rupture. He was also given potassium chloride and was started on azithromycin and ceftriaxone. He is being admitted in this setting for further treatment. Left lower lobe pneumonia check procalcitonin. Nasal MRSA negative. Bilateral tympanic membrane rupture on ofloxacin drops Hypokalemia Chronic neck cyst follow-up as an outpatient basis DVT prophylaxis Lovenox Code status full code Subjective Date/time seen: 04/01/24 12:05 Interval history: Feels short of breath with exertion. Still has cough with expectoration. Remains afebrile. Tachycardic with DuoNeb treatment. Reports hearing loss. Review of Systems Review of Systems: All systems reviewed & are unremarkable except as noted in HPI and below Exam Narrative: General: Mildly ill-appearing gentleman the semi-Ricci position in bed in no acute distress. HEENT: PERRL, EOMI. Sclera anicteric. Tacky mucous membranes. Neck: Supple. Respiratory: Coarse breath sounds bilaterally mildly tachypneic Cardiovascular: Mildly tachycardic, regular rhythm with normal S1-S2 Gastrointestinal: Abdomen is soft, flat, nontender, and nondistended with positive bowel sounds. Skin: Warm and dry. No rash or lesions on limited exam. Extremities: No cyanosis, clubbing, or edema. Radial and pedal pulses intact. Neurological: Alert. Cranial nerves 2-12 are grossly intact. No gross focal deficits to casual conversation. Psychiatric: Pleasant and cooperative with normal mood and affect. Judgment and insight intact. Objective Data Vital Signs Vital Signs: Vital Signs - 24 hr 03/31/24 14:10 03/31/24 14:10 03/31/24 14:18 Temperature Pulse Rate 85 86 Respiratory Rate 20 20 Blood Pressure Pulse Oximetry 95 Oxygen Delivery Room Air Fraction of Inspired Oxygen 03/31/24 14:00 03/31/24 16:00 03/31/24 20:03 Temperature 98.6 F Pulse Rate 93 100 Respiratory Rate 16 Blood Pressure 149/92 H Pulse Oximetry 96 94 Oxygen Delivery Room Air Fraction of Inspired Oxygen 03/31/24 20:03 03/31/24 20:07 03/31/24 20:09 Temperature 98.4 F Pulse Rate 86 80 81 Respiratory Rate 20 20 20 Blood Pressure 146/93 H Pulse Oximetry 100 Oxygen Delivery Fraction of Inspired Oxygen 03/31/24 20:00 03/31/24 20:00 04/01/24 00:00 Temperature Pulse Rate 81 81 79 Respiratory Rate 20 Blood Pressure Pulse Oximetry 100 Oxygen Delivery Room Air Fraction of Inspired Oxygen 04/01/24 02:41 04/01/24 02:49 04/01/24 04:00 Temperature Pulse Rate 75 85 86 Respiratory Rate 18 20 Blood Pressure Pulse Oximetry Oxygen Delivery Fraction of Inspired Oxygen 04/01/24 04:45 04/01/24 08:01 04/01/24 08:01 Temperature 98.4 F Pulse Rate 83 92 Respiratory Rate 18 20 Blood Pressure 144/98 H Pulse Oximetry 96 96 Oxygen Delivery Room Air Fraction of Inspired Oxygen 04/01/24 08:09 Temperature Pulse Rate 88 Respiratory Rate 18 Blood Pressure Pulse Oximetry Oxygen Delivery Fraction of Inspired Oxygen Intake/Output Intake/Output: Intake & Output 03/29/24 03/30/24 03/31/24 04/01/24 23:59 23:59 23:59 23:59 Intake Total 1300 2650 800 Balance 1300 2650 800 Meds/Results Medications: Active Medications Generic Name Dose Route Start Last Admin Trade Name Freq PRN Reason Stop Dose Admin Acetaminophen 650 mg 03/30/24 20:44 03/31/24 00:34 Acetaminophen 325 Mg Tablet PO 650 mg Q4H PRN Administration Mild Pain (1-3) or Fever Albuterol/Ipratropium 3 ml 03/31/24 14:00 04/01/24 08:01 Ipratropium 0.5 Mg/Albuterol Sulfate 2.5 Mg Ampul.Neb 3 Ml INHALATION 3 ml Q6HRT FROYLAN Administration Enoxaparin Sodium 40 mg 03/31/24 09:00 04/01/24 09:24 Enoxaparin 40 Mg/0.4 Ml Syringe SUB-Q 40 mg DAILY FROYLAN Administration Guaifenesin 600 mg 03/31/24 12:00 04/01/24 09:24 Guaifenesin 12 Hr 600 Mg Tabcr PO 600 mg Q12HR FROYLAN Administration Guaifenesin/Codeine Phosphate 10 ml 03/31/24 00:11 03/31/24 00:34 Guaifenesin/Codeine (*Crx) 200/20 Mg 10 Ml Syrup PO 10 ml Q4H PRN Administration Cough Ceftriaxone Sodium 1 gm in 50 mls @ 100 mls/hr 03/31/24 20:00 03/31/24 20:25 Rocephin 1 Gm/Ns 50 Ml IVPB Infused Q24H FROYLAN Infusion Azithromycin 500 mg in 250 mls @ 250 mls/hr 03/31/24 20:00 03/31/24 20:55 Zithromax IVPB Infused Q24H FROYLAN Infusion Melatonin 5 mg 03/31/24 00:10 03/31/24 21:59 Melatonin 5 Mg Tablet PO 5 mg HS PRN Administration Sleep Ofloxacin 5 drop 03/31/24 09:00 04/01/24 09:24 Ofloxacin 0.3% Ophth Soln 5 Ml Btl EACH EAR 5 drop BID FROYLAN Administration Ondansetron HCl 4 mg 03/30/24 20:44 Ondansetron Inj 4 Mg/2 Ml Vial IV PUSH Q4H PRN Nausea Radiology Results: ITS Impressions Chest X-Ray 03/30/24 14:15 IMPRESSION: 1. Left lower lobe pneumonia. 2. Possible small left pleural effusion. Labs Labs: Laboratory Results - last 24 hr 04/01/24 05:12 WBC 10.5 H RBC 3.71 L Hgb 11.4 L Hct 34.7 L MCV 93.5 MCH 30.7 MCHC 32.9 RDW 14.9 H Plt Count 459 H MPV 9.0 Immature Gran % (Auto) 0.4 Neut % (Auto) 60.7 Lymph % (Auto) 23.6 [place] % (Auto) 12.3 H Eos % (Auto) 2.2 Baso % (Auto) 0.8 Lymph # (Auto) 2.48 [place] # (Auto) 1.3 H Eos # (Auto) 0.2 Baso # (Auto) 0.1 Abs Immat Gran (auto) 0.04 H Absolute Neuts (auto) 6.4 Absolute Nucleated RBC 0.000 Nucleated RBC % 0.0 Sodium 136 L Potassium 3.1 L Chloride 100 Carbon Dioxide 30 Anion Gap 6 BUN 3 L Creatinine 0.40 L Estim Creat Clear Calc 148 Estimated GFR > 60 Glucose 106 Calcium 8.9 Magnesium 1.9 Total Bilirubin 0.3 AST 21 ALT 12 Alkaline Phosphatase 79 Total Protein 7.0 Albumin 3.5
[2024-04-01] MEDS: methylPREDNISolone SOD SUCC 40 MG VIAL IV PUSH (12:21)
[2024-04-01 12:51] LABS: CRP 14.2 mg/dL (<1.0)
[2024-04-01 13:24] LABS: Procalcitonin 0.1 ng/mL
[2024-04-01] MEDS: AZITHROMYCIN 500 MG/NS 250 ML 500 MG/250 ML BAG IVPB (20:24)
[2024-04-01] MEDS: MELATONIN 5 MG TABLET PO (22:30)
[2024-04-02] VITALS (17 sets, daily range): BP systolic 140–161; BP diastolic 33–98; PULSE 74–95; RESP 18–20; TEMP 36.5–36.9; O2SAT 95–98
[2024-04-02] MEDS: IPRATROPIUM 0.5 MG/ALBUTEROL SULFATE 2.5 MG AMPUL.NEB 3 ML INHALATION ×4 (01:57→20:17)
[2024-04-02] MEDS: guaiFENesin 12 HR 600 MG TABCR PO ×2 (08:47→20:42)
[2024-04-02] MEDS: methylPREDNISolone SOD SUCC 40 MG VIAL IV PUSH (08:47)
[2024-04-02] MEDS: ENOXAPARIN 40 MG/0.4 ML SYRINGE SUB-Q (08:48)
[2024-04-02] MEDS: OFLOXACIN 0.3% OPHTH SOLN 5 ML BTL 5 DROP EACH EAR ×2 (08:48→16:38)
--- NOTE | 2024-04-02 12:22 | PM.IMPN ---
Progress Note: A&P Assessment and Plan (1) Left lower lobe pneumonia: Code(s): J18.9 - Pneumonia, unspecified organism Status: Acute (2) Rupture of both tympanic membranes: Code(s): H72.93 - Unspecified perforation of tympanic membrane, bilateral Status: Acute (3) Hypokalemia: Code(s): E87.6 - Hypokalemia Status: Acute (4) Skin abscess: Qualifiers: Laterality: left Site of cutaneous abscess: extremity Site of cutaneous abscess of extremity: axilla Qualified Code(s): L02.412 - Cutaneous abscess of left axilla Code(s): L02.91 - Cutaneous abscess, unspecified Status: Acute Plan This is a previously healthy 43-year-old male who presented to the emergency department via private vehicle for evaluation of cough, shortness of breath, and ear pain. The patient provides the following history. He has not been feeling well for nearly a week with symptoms to include congestion, cough productive of whitish colored phlegm, and bilateral ear pain. His coughing fits are so severe that he reports having several episodes of post-tussive emesis. The last 24 hours he has started to feel a bit short of breath. His appetite has been poor. Sick contacts include 2 family members who were recently diagnosed pneumonia. He has been taking [id number] cold and flu medication without much benefit. He denies fever, sweats, sinus congestion, sore throat, abdominal pain, nausea, vomiting, and diarrhea. In the ED: He was afebrile on arrival with stable vital signs. Labs were significant for WBC count of 12.9, hemoglobin 13.3, sodium 132, potassium 2.6, chloride 85, carbon dioxide 35, BUN 5, creatinine 0.50, proBNP 214. He was negative for influenza, RSV, and COVID. Chest x-ray showed left lower lobe pneumonia possible small left pleural effusion. In the ED he was started on ofloxacin due to evidence of bilateral tympanic membrane rupture. He was also given potassium chloride and was started on azithromycin and ceftriaxone. He is being admitted in this setting for further treatment. Left lower lobe pneumonia procalcitonin low. Nasal MRSA negative. CT chest with multifocal pneumonia. On steroid daily with improvement Bilateral tympanic membrane rupture on ofloxacin drops Hypokalemia replace and monitor Chronic neck cyst follow-up as an outpatient basis DVT prophylaxis Mayax Code status full code Subjective Date/time seen: 04/02/24 12:22 Interval history: No overnight event. Feels better. Cough persists. Review of Systems Review of Systems: All systems reviewed & are unremarkable except as noted in HPI and below Exam Narrative: General: Well-appearing gentleman the semi-Ricci position in bed in no acute distress. HEENT: PERRL, EOMI. Sclera anicteric. Tacky mucous membranes. Neck: Supple. Respiratory: Coarse breath sounds bilaterally mildly tachypneic Cardiovascular: regular rate, regular rhythm with normal S1-S2 Gastrointestinal: Abdomen is soft, flat, nontender, and nondistended with positive bowel sounds. Skin: Warm and dry. No rash or lesions on limited exam. Extremities: No cyanosis, clubbing, or edema. Radial and pedal pulses intact. Neurological: Alert. Cranial nerves 2-12 are grossly intact. No gross focal deficits to casual conversation. Psychiatric: Pleasant and cooperative with normal mood and affect. Judgment and insight intact. Objective Data Vital Signs Vital Signs: Vital Signs - 24 hr 04/01/24 13:39 04/01/24 13:39 04/01/24 13:46 Temperature Pulse Rate 77 84 Respiratory Rate 20 20 Blood Pressure Pulse Oximetry 98 Oxygen Delivery Room Air Fraction of Inspired Oxygen 21 04/01/24 16:00 04/01/24 14:00 04/01/24 19:50 Temperature 98 F Pulse Rate 109 H 86 109 H Respiratory Rate 18 18 Blood Pressure 155/99 H Pulse Oximetry 99 99 Oxygen Delivery Room Air Fraction of Inspired Oxygen 21 04/01/24 20:05 04/01/24 20:06 04/01/24 20:14 Temperature Pulse Rate 101 H 100 Respiratory Rate 20 20 Blood Pressure Pulse Oximetry 95 Oxygen Delivery Room Air Fraction of Inspired Oxygen 21 04/01/24 22:00 04/01/24 20:00 04/02/24 00:00 Temperature 98.0 F Pulse Rate 80 88 79 Respiratory Rate 18 Blood Pressure 164/98 H Pulse Oximetry 96 Oxygen Delivery Fraction of Inspired Oxygen 04/02/24 01:59 04/02/24 02:06 04/02/24 06:00 Temperature 97.7 F Pulse Rate 77 82 90 Respiratory Rate 20 20 18 Blood Pressure 161/33 H Pulse Oximetry 97 Oxygen Delivery Fraction of Inspired Oxygen 04/02/24 07:39 04/02/24 07:39 04/02/24 08:00 Temperature Pulse Rate 89 92 Respiratory Rate 20 Blood Pressure Pulse Oximetry 97 Oxygen Delivery Room Air Fraction of Inspired Oxygen 21 04/02/24 08:46 04/02/24 12:00 Temperature Pulse Rate 74 Respiratory Rate Blood Pressure Pulse Oximetry Oxygen Delivery Room Air Fraction of Inspired Oxygen Intake/Output Intake/Output: Intake & Output 03/30/24 03/31/24 04/01/24 04/02/24 23:59 23:59 23:59 23:59 Intake Total 1300 2650 1790 360 Output Total 3 Balance 1300 2650 1790 357 Meds/Results Medications: Active Medications Generic Name Dose Route Start Last Admin Trade Name Freq PRN Reason Stop Dose Admin Acetaminophen 650 mg 03/30/24 20:44 03/31/24 00:34 Acetaminophen 325 Mg Tablet PO 650 mg Q4H PRN Administration Mild Pain (1-3) or Fever Albuterol/Ipratropium 3 ml 03/31/24 14:00 04/02/24 07:39 Ipratropium 0.5 Mg/Albuterol Sulfate 2.5 Mg Ampul.Neb 3 Ml INHALATION 3 ml Q6HRT FROYLAN Administration Enoxaparin Sodium 40 mg 03/31/24 09:00 04/02/24 08:48 Enoxaparin 40 Mg/0.4 Ml Syringe SUB-Q 40 mg DAILY FROYLAN Administration Guaifenesin 600 mg 03/31/24 12:00 04/02/24 08:47 Guaifenesin 12 Hr 600 Mg Tabcr PO 600 mg Q12HR FROYLAN Administration Guaifenesin/Codeine Phosphate 10 ml 03/31/24 00:11 03/31/24 00:34 Guaifenesin/Codeine (*Crx) 200/20 Mg 10 Ml Syrup PO 10 ml Q4H PRN Administration Cough Ceftriaxone Sodium 1 gm in 50 mls @ 100 mls/hr 03/31/24 20:00 04/01/24 20:55 Rocephin 1 Gm/Ns 50 Ml IVPB Infused Q24H FROYLAN Infusion Azithromycin 500 mg in 250 mls @ 250 mls/hr 03/31/24 20:00 04/01/24 20:24 Zithromax IVPB 5 mls/hr Q24H FROYLAN Administration Melatonin 5 mg 03/31/24 00:10 04/01/24 22:30 Melatonin 5 Mg Tablet PO 5 mg HS PRN Administration Sleep Methylprednisolone Sodium Succinate 40 mg 04/01/24 12:10 04/02/24 08:47 Methylprednisolone Sod Succ 40 Mg Vial IV PUSH 40 mg DAILY FROYLAN Administration Ofloxacin 5 drop 03/31/24 09:00 04/02/24 08:48 Ofloxacin 0.3% Ophth Soln 5 Ml Btl EACH EAR 5 drop BID FROYLAN Administration Ondansetron HCl 4 mg 03/30/24 20:44 Ondansetron Inj 4 Mg/2 Ml Vial IV PUSH Q4H PRN Nausea Radiology Results: ITS Impressions Chest X-Ray 03/30/24 14:15 IMPRESSION: 1. Left lower lobe pneumonia. 2. Possible small left pleural effusion. Chest CT 04/01/24 19:47 IMPRESSION: Segmental left lower lobe consolidation concerning for pneumonia. Additional right upper lobe and left lower lobe acinar/tree-in-bud opacities may represent additional sites of infection. Subcutaneous cystic lesions in the right lower neck and anterior to the sternum. Sternoclavicular and sternomanubrial erosive change, correlate for history of inflammatory/crystalline arthropathy. Labs Labs: Laboratory Results - last 24 hr 04/01/24 05:09 C-Reactive Protein 14.2 H Procalcitonin 0.1
[2024-04-02] MEDS: AZITHROMYCIN 500 MG/NS 250 ML 500 MG/250 ML BAG IVPB (22:13)
[2024-04-02] MEDS: MELATONIN 5 MG TABLET PO (22:15)
[2024-04-03] VITALS (9 sets, daily range): BP systolic 128; BP diastolic 75; PULSE 61–92; RESP 16–18; TEMP 36.7; O2SAT 97–98
[2024-04-03 05:57] LABS: Basophils Absolute Auto 0.1 K/mm3 (0.0-0.1); Basophils Percent Auto 0.4 % (0.2-1.2); Eosinophils Absolute Auto 0.1 K/mm3 (0-0.3); Eosinophils Percent Auto 0.4 % (0-4.4); Hematocrit 38.4 % (42.0-52.0); Hemoglobin 12.3 g/dL (14.0-18.0); Immature Granulocyte Absolute 0.11 K/mm3 (0.00-0.031); Immature Granulocyte Percent A 0.7 % (0-0.5); Lymphocytes Absolute Auto 3.26 K/mm3 (0.9-3.2); Lymphocytes Percent Auto 19.6 % (18.3-44.2); Mean Corpuscular Hemoglobin 30.8 pg (26-34); Monocytes Absolute Auto 1.3 K/mm3 (0.1-0.6); Monocytes Percent Auto 7.5 % (2.6-8.5); Neutrophils Absolute Auto 11.9 K/mm3 (1.3-6.7); Neutrophils Percent Auto 71.4 % (45.5-73.1); Platelet Count Result 600 k/mm3 (150-375); Red Cell Distribution Width 15.5 % (11.5-14.5); White Blood Count 16.6 K/mm3 (4.5-10.0)
[2024-04-03 06:17] LABS: Alanine Aminotransferase 29 U/L (6-50); Albumin Level 4.1 g/dL (3.5-5.1); Alkaline Phosphatase 88 U/L (38-126); Anion Gap 12 mmol/L (4-12); Aspartate Amino Transferase 48 U/L (17-59); Bilirubin,Total 0.3 mg/dL (0.2-1.3); Blood Urea Nitrogen 13 mg/dL (9-20); Calcium 9.8 mg/dL (8.4-10.2); Carbon Dioxide 25 mmol/L (22-30); Chloride 102 mmol/L (98-107); Estimated CRCL calculation 142 ml/min; Estimated Glomerular Filt Rate > 60; Glucose 97 mg/dL (65-110); Magnesium 2.1 mg/dL (1.6-2.3); Potassium 4.8 mmol/L (3.4-5.0); Sodium 139 mmol/L (137-145)
[2024-04-03] MEDS: IPRATROPIUM 0.5 MG/ALBUTEROL SULFATE 2.5 MG AMPUL.NEB 3 ML INHALATION ×2 (07:11→13:04)
[2024-04-03] MEDS: methylPREDNISolone SOD SUCC 40 MG VIAL IV PUSH (08:21)
[2024-04-03] MEDS: ENOXAPARIN 40 MG/0.4 ML SYRINGE SUB-Q (08:21)
[2024-04-03] MEDS: OFLOXACIN 0.3% OPHTH SOLN 5 ML BTL 5 DROP EACH EAR (08:21)
[2024-04-03] MEDS: guaiFENesin 12 HR 600 MG TABCR PO (08:22)
--- NOTE | 2024-04-03 12:30 | PM.DS ---
DS: Admitting Diagnosis Discharge Date 04/03/2024 Admitting Diagnosis Shortness of breath DS: Discharge Diagnosis Discharge Diagnosis (1) Left lower lobe pneumonia: Code(s): J18.9 - Pneumonia, unspecified organism Status: Acute (2) Rupture of both tympanic membranes: Code(s): H72.93 - Unspecified perforation of tympanic membrane, bilateral Status: Acute (3) Hypokalemia: Code(s): E87.6 - Hypokalemia Status: Acute (4) Skin abscess: Qualifiers: Laterality: left Site of cutaneous abscess: extremity Site of cutaneous abscess of extremity: axilla Qualified Code(s): L02.412 - Cutaneous abscess of left axilla Code(s): L02.91 - Cutaneous abscess, unspecified Status: Acute DS: Summary Hospital Course Hospital Course: This is a previously healthy 43-year-old male who presented to the emergency department via private vehicle for evaluation of cough, shortness of breath, and ear pain. The patient provides the following history. He has not been feeling well for nearly a week with symptoms to include congestion, cough productive of whitish colored phlegm, and bilateral ear pain. His coughing fits are so severe that he reports having several episodes of post-tussive emesis. The last 24 hours he has started to feel a bit short of breath. His appetite has been poor. Sick contacts include 2 family members who were recently diagnosed pneumonia. He has been taking [id number] cold and flu medication without much benefit. He denies fever, sweats, sinus congestion, sore throat, abdominal pain, nausea, vomiting, and diarrhea. In the ED: He was afebrile on arrival with stable vital signs. Labs were significant for WBC count of 12.9, hemoglobin 13.3, sodium 132, potassium 2.6, chloride 85, carbon dioxide 35, BUN 5, creatinine 0.50, proBNP 214. He was negative for influenza, RSV, and COVID. Chest x-ray showed left lower lobe pneumonia possible small left pleural effusion. In the ED he was started on ofloxacin due to evidence of bilateral tympanic membrane rupture. He was also given potassium chloride and was started on azithromycin and ceftriaxone. He is being admitted in this setting for further treatment. Left lower lobe pneumonia procalcitonin low. Nasal MRSA negative. CT chest with multifocal pneumonia. On steroid daily with improvement. Will add on albuterol at discharge. Change antibiotic to oral Bilateral tympanic membrane rupture on ofloxacin drops Hypokalemia replace and monitor Chronic neck cyst follow-up as an outpatient basis DVT prophylaxis Lovenox Code status full code Time Spent with Patient Time attestation: Total time spent providing and/or coordinating discharge services: 35 minutes Exam Narrative: General: Well-appearing gentleman the semi-Ricci position in bed in no acute distress. HEENT: PERRL, EOMI. Sclera anicteric. Tacky mucous membranes. Neck: Supple. Respiratory: Coarse breath sounds bilaterally mildly tachypneic Cardiovascular: regular rate, regular rhythm with normal S1-S2 Gastrointestinal: Abdomen is soft, flat, nontender, and nondistended with positive bowel sounds. Skin: Warm and dry. No rash or lesions on limited exam. Extremities: No cyanosis, clubbing, or edema. Radial and pedal pulses intact. Neurological: Alert. Cranial nerves 2-12 are grossly intact. No gross focal deficits to casual conversation. Psychiatric: Pleasant and cooperative with normal mood and affect. Judgment and insight intact. DS: Data Data Completed and Pending Labs on day of discharge: Labs from last 24 hours 04/03/24 05:14 WBC 16.6 H RBC 4.00 L Hgb 12.3 L Hct 38.4 L MCV 96.0 MCH 30.8 MCHC 32.0 RDW 15.5 H Plt Count 600 H MPV 9.0 Immature Gran % (Auto) 0.7 H Neut % (Auto) 71.4 Lymph % (Auto) 19.6 [place] % (Auto) 7.5 Eos % (Auto) 0.4 Baso % (Auto) 0.4 Lymph # (Auto) 3.26 H [place] # (Auto) 1.3 H Eos # (Auto) 0.1 Baso # (Auto) 0.1 Abs Immat Gran (auto) 0.11 H Absolute Neuts (auto) 11.9 H Absolute Nucleated RBC 0.000 Nucleated RBC % 0.0 Sodium 139 Potassium 4.8 Chloride 102 Carbon Dioxide 25 Anion Gap 12 BUN 13 D Creatinine 0.40 L Estim Creat Clear Calc 142 Estimated GFR > 60 Glucose 97 Calcium 9.8 Magnesium 2.1 Total Bilirubin 0.3 AST 48 ALT 29 Alkaline Phosphatase 88 Total Protein 9.0 H Albumin 4.1 Preliminary micro results at discharge 03/30/24 19:30 Blood Culture - Preliminary Blood 03/30/24 19:30 Blood Culture - Preliminary Blood Imaging Radiologist's impression: ITS Impressions Chest X-Ray 03/30/24 14:15 IMPRESSION: 1. Left lower lobe pneumonia. 2. Possible small left pleural effusion. Chest CT 04/01/24 19:47 IMPRESSION: Segmental left lower lobe consolidation concerning for pneumonia. Additional right upper lobe and left lower lobe acinar/tree-in-bud opacities may represent additional sites of infection. Subcutaneous cystic lesions in the right lower neck and anterior to the sternum. Sternoclavicular and sternomanubrial erosive change, correlate for history of inflammatory/crystalline arthropathy. Discharge Plan Discharge Attending physician on discharge: Lester Khoury Discharging Clinician: Lester Khoury Anticipated Discharge Date/Time: 04/03/24 12:34 Patient Disposition: Home, Self-Care Activity: as tolerated Diet: regular Patient Instructions: Antibiotic Form, How to Stop Smoking (DC) Stand Alone Forms: General Discharge Information Follow-up/Referrals: UNKNOWN,DOCTOR [Primary Care Provider] - 1 Week Discharge Medications: New guaifenesin [Mucus Relief ER] 600 mg Tablet Extended Release 12hr 600 mg PO Q12HR Qty: 30 0RF ofloxacin [Ocuflox] 0.3 % Drops 5 drp EACH EAR BID Qty: 30 0RF levofloxacin 750 mg tablet 750 mg PO DAILY Qty: 5 0RF prednisone 20 mg tablet 40 mg PO DAILY 2 Days Qty: 4 0RF Continued ibuprofen 600 mg Tablet 600 mg PO Q4H PRN (Reason: Mild Pain (Scale Score 1-4)) melatonin 5 mg Tablet 5 mg PO HS PRN (Reason: Sleep) Date of admission: 04/01/24 13:46 Primary Care Provider: UNKNOWN,DOCTOR Admitting Provider: Isabel May Attending physician on admission: Isabel May Condition: Stable
[2024-04-04 10:43] LABS: Mycoplasma IgM Antibody Titer 5314 U/mL
[2024-04-06 17:53] LABS: Pneumococcal Antigen Urine NOT DETECTED
[2024-04-11 19:33] LABS: Legionella pneumophila Ag Ur NOT DETECTED
== END 2024-04-03 13:30 | disposition home or self-care (01) | DRG 139 ==
LOC: ANHED 20:42 → ANH2MED 21:12
PROVIDERS: Physician Assistant; Admitting Provider Internal Medicine; Emergency Provider Physician Assistant; Visit Provider Internal Medicine
DX: J18.9 Pneumonia, unspecified organism (principal); F17.210 Nicotine dependence, cigarettes, uncomplicated; H72.93 Unspecified perforation of tympanic membrane, bilateral; E87.6 Hypokalemia; L02.11 Cutaneous abscess of neck; E44.0 Moderate protein-calorie malnutrition; Z68.1 Body mass index [BMI] 19.9 or less, adult; Z20.822 Contact with and (suspected) exposure to COVID-19
CPT/HCPCS: 36415; 71046; 71250; 80048; 80053; 83735; 83880; 84145; 85025; 85027; 86140; 86738; 87040; 87070; 87205; 87449; 87637; 87641; 87899; 93005; 94640; 96361; 96365; 96367; 96368; 96372; 96374; 96375; 99285; A9270; G0378; J0456; J0696; J1650; J2919; J3480; J7030; J7040

== ENCOUNTER 2024-07-02 09:40 | Emergency (ER) | payer OTHER, SELFPAY ==
--- OUTSIDE RECORDS SUMMARY | 2024-07-02 09:43 | XMS_ITS | Clinical Summary ---
Author Organization [facility] Address [facility] [place] [address] Care Team Providers Care Acquisition Consultant Name Role Phone Vilma Cravenn Kaitlyn LOOSE HAND PACKER Primary Care Provider [phone] Allergies No known active allergies Medications naproxen sodium (ALEVE) 220 MG tablet Take 220 mg by mouth 2 (two) times daily with meals. Active loratadine (CLEAR-ATADINE) 10 MG tablet Take 10 mg by mouth daily. Active Active Problems No known active problems Family History Medical History Relation Comments No Known Problems Brother Cancer Father No Known Problems Mother Sudden Sister Relation Status Comments Brother Alive Father Alive Mother Alive Sister Alive Social History Tobacco Use Types Packs/Day Years Used Date Smoking Tobacco: Every Day Cigarettes Smokeless Tobacco: Never Alcohol Use Standard Drinks/Week Comments Yes 0 (1 standard drink = 0.6 oz pur e alcohol) Sex and Gender Information Value Date Recorded Sex Assigned at Not on file Legal Sex Male 5:58 PM CDT Gender Identity Not on file Sexual Orientation Not on file Last Filed Vital Signs Vital Sign Reading Time Taken Comments Blood Pressure - - Pulse - - Temperature - - Respiratory Rate - - Oxygen Saturation - - Inhaled Oxygen Concentration - - Weight 49.9 kg (110 lb) 02/25/2021 2:39 PM CDT Height 170.2 cm (5' 7 ) 02/25/2021 2:39 PM CDT Body Mass Index 17.23 02/25/2021 2:39 PM CDT Plan of Treatment Health Maintenance Due Date Last Done Comments Annual Physical 1984 Pneumococcal Vaccine: Pediatrics (0 to 5 Years) and At-Risk Patients (6 to 64 Years) (1 of 2 - PCV) 09/11/1987 Hepatitis C 09/11/1999 DTaP, Tdap and Td Vaccines ( 1 - Tdap) 2000 Hepatitis B Vaccines (1 of 3 - 19+ 3-dose series) 2000 COVID-19 Vaccine (3 - 2023-2 5 season) 2024 11/11/2020, 10/21/2020 Influenza Adult (#1) 2024 HPV Vaccines Aged Out No longer eligi ble based on patient's age to complete this topic Meningococcal B Vaccine Aged Out No l onger eligible based on patient's age to complete this topic Meningococcal Vaccine Aged Out No charleen chapo eligible based on patient's age to complete this topic RSV Immunizations Under 20 Months Aged Out No longer eligible b ased on patient's age to complete this topic Insurance [employer] Care Teams Acquisition Consultant Relationship Specialty Start Date End Date Marely [place] [address] PCP - General NURSE PRACTITIONER 12/16/20
[2024-07-02 09:51] VITALS: BP 109/76; PULSE 78; RESP 16; TEMP 36.7; O2SAT 100
[2024-07-02 09:58] VITALS: BP 100/75; PULSE 77; RESP 15; O2SAT 100
--- NOTE | 2024-07-02 10:12 | ED_ITS ---
HPI - General Adult General Chief complaint: Skin/Abscess/Foreign Body Stated complaint: boil under right arm Time Seen by Provider: 07/02/24 09:58 History of Present Illness HPI narrative: [age] year old male presents to the emergency department for evaluation for recurrent abscesses to the right axilla. Patient states he does have the intermittently in typically they resolve with warm compresses but this 1 started yesterday and has been worsening. Related Data Home Medications ?Medication ?Instructions ?Recorded ?Confirmed ?Last Taken ?Type amlodipine 5 mg tablet 5 mg PO DAILY 07/02/24 07/02/24 07/02/24 History baclofen 10 mg tablet 10 mg PO PRN PRN pain 07/02/24 07/02/24 07/01/24 History gabapentin 600 mg tablet 600 mg PO PRN PRN pain 07/02/24 07/02/24 07/02/24 History hydroxyzine pamoate 50 mg capsule 100 mg PO QID 07/02/24 07/02/24 07/02/24 History ibuprofen 800 mg tablet 800 mg PO TID 07/02/24 07/02/24 07/02/24 History propranolol 20 mg tablet 20 mg PO TID 07/02/24 07/02/24 07/02/24 History quetiapine 100 mg tablet 300 mg PO HS 07/02/24 07/02/24 Unknown History trazodone 100 mg tablet 100 mg PO HS 07/02/24 07/02/24 07/01/24 History Allergies Allergy/AdvReac Type Severity Reaction Status Date / Time No Known Allergies Allergy Verified 07/02/24 09:58 Review of Systems Review of Systems: All systems reviewed & are unremarkable except as noted in HPI and below PMFSH Past Medical History Medical History Cigarette nicotine dependence Skin abscess Surgical History Surgical History History of skin graft Family History Family History Father Carcinoma of colon Heart disease Mother Cancer Social History Social History (Updated 03/31/24 @ 00:12 by Mili Capps PA-C) Social History: Surrogate medical decision maker: Davea Foot. Code status: Full code. Smoking packs per day: 0.5 Smoking cigarettes per day: 10.0 Smoking status: Current some day smoker Tobacco type: cigarettes Additional smoking assessment comments: stopped recently Alcohol intake: current Drinks per week: 1 Alcohol use details: 3-4 beers per day Substance use: never Substance use type: does not use Do You Feel Safe in your Home?: Yes Lack of Transportation: YES Lack of Food: Never True Current Housing: I Have Housing Concerned About Future Housing: No Difficulty Paying Gas/Electric Bills: YES Difficulty Paying for Meds: YES Currently Unemployed: YES Education: High School Diploma/GED Difficulty w/ Childcare or Family Care: No Spiritual care concerns: No Exam Narrative: APPEARANCE: Well appearing, no pain, no distress, well-nourished. HEAD: normocephalic, atraumatic. EYES: PERRLA/EOMI, conjunctivae clear. NOSE: Normal no drainage EARS:TMS clear with good light reflex. THROAT: Pharynx clear, no exudate. NECK: Supple. No adenopathy, no masses. RESPIRATORY: Airway patent, respirations nonlabored. Clear to auscultation bilaterally, no rales, rhonchi, wheezing. CARDIOVASCULAR: Regular rate and rhythm without murmurs rubs or gallops. ABDOMINAL: Soft, nontender, nondistended, normal bowel sounds MUSCULOSKELETAL: Moves all extremities. Strength/ROM intact, No edema, No calf tenderness. NEURO: Alert. Cranial nerves II through XII intact. Good gait. Good coordination SKIN: Mass on left side of neck and on chest that he is having follow-up for. Suppurative hidradenitis of right axilla. No overlying erythema, tenderness to palpation Course Vital Signs Vital signs: Vital Signs Temperature 98.1 F 07/02/24 09:51 Pulse Rate 78 07/02/24 09:51 Respiratory Rate 16 07/02/24 09:51 Blood Pressure 109/76 07/02/24 09:51 Pulse Oximetry 100 07/02/24 09:51 Temperature 98.1 F 07/02/24 09:51 Pulse Rate 77 07/02/24 09:58 Respiratory Rate 15 07/02/24 09:58 Blood Pressure 100/75 07/02/24 09:58 Pulse Oximetry 100 07/02/24 09:58 Medical Decision Making MDM Narrative Medical decision making narrative: 43-year-old male presenting emergency department for recurrent suppurative hidradenitis. No abscess amenable to drainage. Patient was started clindamycin. Patient was encouraged to have close follow-up with primary care physician and potentially with dermatology. All questions concerns were addressed and patient was comfortable plan for discharge and close follow-up Differential Diagnosis Differential Diagnosis: Abscess, cellulitis, suppurative hidradenitis Vital Signs Vital Signs: Vital Signs Temperature 98.1 F 07/02/24 09:51 Pulse Rate 78 07/02/24 09:51 Respiratory Rate 16 07/02/24 09:51 Blood Pressure 109/76 07/02/24 09:51 Pulse Oximetry 100 07/02/24 09:51 Temperature 98.1 F 07/02/24 09:51 Pulse Rate 77 07/02/24 09:58 Respiratory Rate 15 07/02/24 09:58 Blood Pressure 100/75 07/02/24 09:58 Pulse Oximetry 100 07/02/24 09:58 Discharge Plan Discharge Clinical Impression: Suppurative hidradenitis Patient Disposition: Home, Self-Care Condition: Stable Instructions: Antibiotic Form, Hidradenitis Suppurativa (ED) Additional Instructions: Antibiotic as directed until completed. Warm compress as directed. Tylenol and ibuprofen for pain control. Continue to have close follow-up with her primary care physician. Patient Language: Slovenian Prescriptions: New clindamycin HCl [Cleocin HCl] 300 mg capsule 300 mg PO Q6H 7 Days Qty: 28 0RF No Action ibuprofen 800 mg tablet 800 mg PO TID quetiapine 100 mg tablet 300 mg PO HS trazodone 100 mg tablet 100 mg PO HS baclofen 10 mg tablet 10 mg PO PRN PRN (Reason: pain) amlodipine 5 mg tablet 5 mg PO DAILY gabapentin 600 mg tablet 600 mg PO PRN PRN (Reason: pain) propranolol 20 mg tablet 20 mg PO TID hydroxyzine pamoate 50 mg capsule 100 mg PO QID Follow-up/Referrals: Maynor Aviles DO [Primary Care Provider] -
--- OUTSIDE RECORDS SUMMARY | 2024-07-02 10:14 | XMS_ITS | Clinical Summary ---
Author Organization [facility] Address [facility] [place] [address] Care Team Providers Care Sql Data Architect Name Role Phone Vilma Cravenn Kaitlyn SMASH PIECER Primary Care Provider Allergies No known active allergies Medications naproxen [...] this topic Insurance [employer] [place] [employer] [place] [address] Care Teams Sql Data Architect Relationship Specialty Start Date End Date Marely Cra[place] [address] PCP - General NURSE PRACTITIONER 12/16/20
[2024-07-02] MEDS: CLINDAMYCIN HCL 150 MG CAP 300 MG PO (10:19)
== END 2024-07-02 10:31 | disposition home or self-care (01) ==
PROVIDERS: Emergency Provider Emergency Medicine; PCP Family Medicine
DX: L73.2 Hidradenitis suppurativa (principal); Z87.891 Personal history of nicotine dependence
CPT/HCPCS: 99283; A9270

== ENCOUNTER 2024-07-06 18:53 | Emergency (ER) | payer OTHER, SELFPAY ==
--- OUTSIDE RECORDS SUMMARY | 2024-07-06 18:55 | XMS_ITS | Clinical Summary ---
Author Organization [facility] Address [facility] [place] [address] Care Team Providers Care Clerical Methods Analyst Name Role Phone Vilma Cravenn Kaitlyn WEAVE DEFECT CHARTING CLERK Primary Care Provider Allergies No known active [...] this topic Insurance [employer] Care Teams Clerical Methods Analyst Relationship Specialty Start Date End Date [place]are[place] [address] PCP - General NURSE PRACTITIONER 12/16/20
[2024-07-06 19:49] VITALS: BP 130/81; PULSE 73; RESP 14; TEMP 36.5; O2SAT 100
--- NOTE | 2024-07-06 23:14 | PC.NURSE ---
No answer when called for repeat VS.
--- NOTE | 2024-07-06 23:27 | PC.NURSE ---
No answer when called for repeat VS. Not visualized in waiting room.
--- OUTSIDE RECORDS SUMMARY | 2024-07-07 00:15 | XMS_ITS | Clinical Summary ---
Author Organization [facility] Address [facility] [place] [address] Care Team Providers Care Coiled Coil Inspector Name Role Phone Vilma Cravenn Kaitlyn FUEL SYSTEM MAINTENANCE SUPERVISOR Primary Care Provider Allergies No known active [...] this topic Insurance [employer] Care Teams Coiled Coil Inspector Relationship Specialty Start Date End Date Marely [place] [address] PCP - General NURSE PRACTITIONER 12/16/20
== END 2024-07-07 00:42 | disposition left against medical advice (07) ==
LOC: ANHED 07-07 00:13
PROVIDERS: PCP Family Medicine
DX: L02.411 Cutaneous abscess of right axilla (principal)
CPT/HCPCS: 99199

== ENCOUNTER 2024-07-18 11:09 | Outpatient (CLI) | payer OTHER, SELFPAY ==
[2024-07-18 11:30] LABS: Basophils Absolute Auto 0.08 K/mm3 (0.00-0.10); Basophils Percent Auto 0.7 % (0.0-1.0); Eosinophils Absolute Auto 0.59 K/mm3 (0.02-0.50); Eosinophils Percent Auto 5.4 % (1.0-6.0); Hematocrit 36.4 % (40.0-54.0); Hemoglobin 11.3 g/dL (14.0-18.0); Immature Granulocyte Absolute 0.05 K/mm3 (0.00-0.00); Immature Granulocyte Percent A 0.5 % (0.0-0.0); Immature Platelet Fraction Pct 0.5 % (1.0-7.0); Lymphocytes Absolute Auto 2.51 K/mm3 (1.10-4.50); Lymphocytes Percent Auto 22.9 % (18.0-42.0); Mean Corpuscular Volume 90.1 fL (78.0-102.0); Mean Platelet Volume 8.2 fl (8.7-11.0); Monocytes Absolute Auto 0.99 K/mm3 (0.10-0.90); Neutrophils Absolute Auto 6.73 K/mm3 (1.70-7.20); Neutrophils Percent Auto 61.5 % (50.0-70.0); Platelet Count Result 637 K/mm3 (150-420); Red Blood Count 4.04 M/mm3 (4.70-6.10); Red Cell Distribution Width 14.8 % (11.6-14.4)
[2024-07-18 12:10] LABS: Alanine Aminotransferase 16 U/L (16-63); Albumin Level 3.4 g/dL (3.4-5.0); Alkaline Phosphatase 78 U/L (46-116); Anion Gap 7 mmol/L (4-12); Aspartate Amino Transferase 11 U/L (15-37); Bilirubin,Total 0.2 mg/dL (0.00-1.00); Blood Urea Nitrogen 10 mg/dL (7-18); CRP 10.4 mg/dL (0.0-0.9); Calcium 9.9 mg/dL (8.5-10.1); Carbon Dioxide 33 mmol/L (21-32); Chloride 101 mmol/L (98-108); Cholesterol 200 mg/dL (0-200); Estimated Glomerular Filt Rate > 60; Glucose 100 mg/dL (70-99); HDL Direct 41 mg/dL (40-60); LDL Cholesterol Calculated 147 mg/dL (<130); Osmolality Calculated 291 mOsm/kg (285-295); Sodium 141 mmol/L (136-145); Triglycerides 62 mg/dL (0-150)
[2024-07-18 12:30] LABS: Thyroid Stimulating Hormone Reflex 1.89 u/IU/mL (0.36-3.74)
[2024-07-18 12:33] LABS: Erythrocyte Sedimentation Rate 50 mm/hr (0-15)
[2024-07-18 13:07] LABS: Iron 24 ug/dL (65-175); Percent Iron Saturation 11 % (12-57)
== END 2024-07-18 11:10 | disposition home or self-care (01) ==
PROVIDERS: PCP Nurse Practitioner Family; Visit Provider Nurse Practitioner Family
DX: Z00.00 Encounter for general adult medical examination without abnormal findings (principal); R22.1 Localized swelling, mass and lump, neck; R22.31 Localized swelling, mass and lump, right upper limb; R79.89 Other specified abnormal findings of blood chemistry
CPT/HCPCS: 36415; 80053; 80061; 83036; 83540; 83550; 84443; 85025; 85055; 85652; 86140

== ENCOUNTER 2024-08-16 08:04 | Emergency (ER) | payer OTHER, SELFPAY ==
--- NOTE | ~2024-08-16 | XR_ITS ---
XR hip BI 2V w AP pelvis 08/16/2024 09:06 Indication: Hip pain Procedure: AP pelvis and 2 views each hip Comparison: No prior studies for comparison. Findings: Mild osteoarthritis of the hips. There is patchy indistinct sclerosis of the pelvis and lef t femoral head, suspicious for metastatic disease. Correlate for history of malignancy. Consider linda elation with nuclear bone scan. No acute fracture is identified. Impression: 1: Indistinct patchy sclerosis of the pelvis and left femur, suspicious for metastatic disease. Consi jeison correlation with bone scan. Reviewed, dictated and finalized at location A. Impression: 1: Indistinct patchy sclerosis of the pelvis and left femur, suspicious for met astatic disease. Consider correlation with bone scan.
[2024-08-16 08:10] VITALS: BP 116/69; PULSE 79; RESP 16; TEMP 36.3; O2SAT 100
--- OUTSIDE RECORDS SUMMARY | 2024-08-16 08:10 | XMS_ITS | Clinical Summary ---
Author Organization [facility] Address [facility] [place] [address] Care Team Providers Care Fiscal Economist Name Role Phone Vilma Cravenn Kaitlyn COPPERSMITH HELPER Primary Care Provider Allergies No known active [...] this topic Insurance [employer] Care Teams Fiscal Economist Relationship Specialty Start Date End Date Marely [place] [address] PCP - General NURSE PRACTITIONER 12/16/20
[2024-08-16] MEDS: KETOROLAC 30 MG/ML VIAL (*BKC) IM (08:39)
[2024-08-16] MEDS: HYDROcodone/acetaminophen (*CRX) 7.5-325 MG TABLET 1 TAB PO (08:39)
--- NOTE | 2024-08-16 08:48 | ED_ITS ---
HPI - General Adult General Chief complaint: Extremity Problem,Nontraumatic Stated complaint: b/l hip pain Time Seen by Provider: 08/16/24 08:07 History of Present Illness HPI narrative: 43-year-old male presents emergency department for evaluation for bilateral hip pain. Patient does have history of arthritis and does have chronic pain. Patient states his left hip had been her exam for period of time but now both hips were hurting him this morning. Patient denies any specific incident fall or injury. Patient has been taking ibuprofen and baclofen for pain control. Patient does have follow-up scheduled with his pain specialist. Related Data Home Medications ?Medication ?Instructions ?Recorded ?Confirmed ?Last Taken ?Type gabapentin 600 mg tablet 600 mg PO PRN PRN pain 07/02/24 08/07/24 07/02/24 History hydroxyzine pamoate 50 mg capsule 100 mg PO QID 07/02/24 08/07/24 07/02/24 History propranolol 20 mg tablet 20 mg PO TID 07/02/24 08/07/24 07/02/24 History trazodone 100 mg tablet 100 mg PO HS PRN sleep 07/18/24 08/07/24 Unknown History Allergies Allergy/AdvReac Type Severity Reaction Status Date / Time No Known Allergies Allergy Verified 08/16/24 08:04 Review of Systems Review of Systems: All systems reviewed & are unremarkable except as noted in HPI and below PMFSH Past Medical History Medical History Chronic pain Alcohol abuse Cigarette nicotine dependence Skin abscess Surgical History Surgical History History of skin graft Family History Family History Father Carcinoma of colon Heart disease Mother Cancer Social History Social History Social History: Surrogate medical decision maker: Rachana Auguste. Code status: Full code. Smoking packs per day: 0.5 Smoking cigarettes per day: 10.0 Years smoked: 28 Smoking pack-years: 14.00 Smoking status: Former smoker Tobacco type: cigarettes Additional smoking assessment comments: stopped recently Alcohol intake: former Alcohol use details: reports prior to 05/19/24 was drinking hard liquor constantly. Has since stopped. Substance use: never Substance use type: does not use Do You Feel Safe in your Home?: Yes Lack of Transportation: YES Lack of Food: Never True Current Housing: I Have Housing Concerned About Future Housing: No Difficulty Paying Gas/Electric Bills: YES Difficulty Paying for Meds: YES Currently Unemployed: YES Education: High School Diploma/GED Difficulty w/ Childcare or Family Care: No Spiritual care concerns: No Exam Narrative: APPEARANCE: Well appearing, no pain, no distress, well-nourished. HEAD: normocephalic, atraumatic. EYES: PERRLA/EOMI, conjunctivae clear. NOSE: Normal no drainage EARS:TMS clear with good light reflex. THROAT: Pharynx clear, no exudate. NECK: Supple. No adenopathy, no masses. RESPIRATORY: Airway patent, respirations nonlabored. Clear to auscultation bilaterally, no rales, rhonchi, wheezing. CARDIOVASCULAR: Regular rate and rhythm without murmurs rubs or gallops. ABDOMINAL: Soft, nontender, nondistended, normal bowel sounds MUSCULOSKELETAL: Moves all extremities. Strength/ROM intact, No edema, No calf tenderness. NEURO: Alert. Cranial nerves II through XII intact. Good gait. Good coordination SKIN: Warm, dry. Normal Color Course Vital Signs Vital signs: Vital Signs Temperature 97.4 F L 08/16/24 08:10 Pulse Rate 79 08/16/24 08:10 Respiratory Rate 16 08/16/24 08:10 Blood Pressure 116/69 08/16/24 08:10 Pulse Oximetry 100 08/16/24 08:10 Oxygen Delivery Room Air 08/16/24 08:10 Temperature 97.4 F L 08/16/24 08:10 Pulse Rate 74 08/16/24 09:31 Respiratory Rate 18 08/16/24 09:31 Blood Pressure 109/70 08/16/24 09:31 Pulse Oximetry 96 08/16/24 09:31 Oxygen Delivery Room Air 08/16/24 08:10 Medical Decision Making MDM Narrative Medical decision making narrative: 43-year-old male presents emergency department for evaluation for bilateral hip pain. X-ray showed Indistinct patchy sclerosis of the pelvis and left femur, suspicious for metastatic disease. Consider correlation with bone scan. Patient was provided additional medication for pain control but was also encouraged close follow-up with primary care physician for additional outpatient follow-up. Differential Diagnosis Differential Diagnosis: Hip strain, hip fracture, hip contusion Vital Signs Vital Signs: Vital Signs Temperature 97.4 F L 08/16/24 08:10 Pulse Rate 79 08/16/24 08:10 Respiratory Rate 16 08/16/24 08:10 Blood Pressure 116/69 08/16/24 08:10 Pulse Oximetry 100 08/16/24 08:10 Oxygen Delivery Room Air 08/16/24 08:10 Temperature 97.4 F L 08/16/24 08:10 Pulse Rate 74 08/16/24 09:31 Respiratory Rate 18 08/16/24 09:31 Blood Pressure 109/70 08/16/24 09:31 Pulse Oximetry 96 08/16/24 09:31 Oxygen Delivery Room Air 08/16/24 08:10 Imaging Data Radiologist's impression: Impressions Hip/Pelvis X-Ray 08/16/24 09:12 Impression: 1: Indistinct patchy sclerosis of the pelvis and left femur, suspicious for metastatic disease. Consider correlation with bone scan. Discharge Plan Discharge Clinical Impression: Bilateral hip pain Patient Disposition: Home, Self-Care Condition: Stable Instructions: Antibiotic Form Additional Instructions: Ibuprofen for pain control as directed. Your home baclofen directed for pain control. Have close follow-up with your primary care physician and they may wish to order a bone scan to better evaluate finding seen on today's x-rays. Also have follow-up with pain management. Patient Language: Filipino Prescriptions: No Action meclizine 12.5 mg tablet 12.5 mg PO BID PRN (Reason: dizziness) Qty: 30 0RF ondansetron 4 mg tablet,disintegrating 4 mg PO BID PRN (Reason: nausea and vomiting) Qty: 14 0RF baclofen 20 mg tablet 20 mg PO BID PRN (Reason: joint pain) 30 Days Qty: 60 2RF bupropion HCl [Wellbutrin XL] 300 mg tablet extended release 24 hr 300 mg PO QAM Qty: 30 2RF trazodone 100 mg tablet 100 mg PO HS PRN (Reason: sleep) quetiapine 100 mg tablet 100 mg PO HS PRN (Reason: sleep) Qty: 30 1RF Vivitrol 380 mg suspension,extended rel recon 380 mg IM MONTHLY Qty: 1 0RF amlodipine 5 mg tablet 5 mg PO DAILY Qty: 90 1RF ibuprofen 800 mg tablet 800 mg PO TID PRN (Reason: pain) Qty: 90 1RF gabapentin 600 mg tablet 600 mg PO PRN PRN (Reason: pain) propranolol 20 mg tablet 20 mg PO TID hydroxyzine pamoate 50 mg capsule 100 mg PO QID Follow-up/Referrals: Vania Herrera APRN [Primary Care Provider] -
[2024-08-16 09:31] VITALS: BP 109/70; PULSE 74; RESP 18; O2SAT 96
== END 2024-08-16 09:32 | disposition home or self-care (01) ==
PROVIDERS: Emergency Provider Emergency Medicine; PCP Nurse Practitioner Family
DX: M25.552 Pain in left hip (principal); M25.551 Pain in right hip; M19.90 Unspecified osteoarthritis, unspecified site
CPT/HCPCS: 73521; 96372; 99283; A9270; J1885

== ENCOUNTER 2024-10-20 16:07 | Outpatient (NON) | payer OTHER, SELFPAY ==
--- OUTSIDE RECORDS SUMMARY | 2024-10-20 16:11 | XMS_ITS | Clinical Summary ---
Author Organization [facility] Address [address] [place] [address] Phone Care Team Providers Care Mig Tig Welder Name Role Phone HerreraVania APRN, SCROLL SHEAR OPERATOR Primary Care Provider + Allergies No known active allergies Medications baclofen (LIORESAL) 20 MG Tablet 3 times daily. 08/11/2024 Active busPIRone (BUSPAR) 15 MG Tablet 7.5 mg 2 times daily. 08/28/2024 Active buPROPion (WELLBUTRIN) 300 MG TABLET SR 24 HR XL tablet Take 300 mg by mouth every morning. 08/20/2024 Active hydrOXYzine (VISTARIL) 50 MG Capsule 100 mg 3 times daily as needed. 08/18/2024 Active ibuprofen (MOTRIN) 800 MG Tablet 800 mg. 08/28/2024 Active amLODIPine (NORVASC) 5 MG Tablet Take 5 mg by mouth daily. 07/18/2024 Active propranolol (INDERAL) 20 MG Tablet Take 20 mg by mouth 3 times daily. 08/18/2024 Active Ferrous Sulfate (Iron) 28 MG Tablet Take by mouth daily. Active gabapentin (NEURONTIN) 600 MG Tablet 08/24/2024 Active ferrous sulfate 325 (65 Fe) MG Tablet Take 1 Tablet by mouth daily. 30 Tablet 2 09/29/2024 Active Active Problems Problem Noted Date Diagnosed Date Ankylosing spondylitis of multiple sites in spin e 09/29/2024 Lung nodules 09/29/2024 Pain in joints of both feet 08/29/2024 Bone lesion 08/29/2024 Neck mass 08/29/2024 Primary hypertension 08/29/2024 Iron deficiency anemia 08/29/2024 Lymphadenopathy, axillary 08/29/2024 Encounters Date Type Department Care Team Description 10/11/2024 11:31 AM CDT - 10/11/2024 11:59 PM CDT Hospital Encounter [facility] PET [address] [place] [address] Jose Barber MD Discharge Disposition: Discharged to home or Selfcare 10/11/2024 Travel 10/10/2024 Telephone [facility] Outpatient [address] [place] [address] Jose Barber MD Prior Authorization 09/29/2024 11:20 AM CDT Office [facility] [address] [place] [address] Jose Barber MD Pain in joints of both feet (Primary Dx); Ankylosing spondylitis of multiple sites in spine (HCC); Lymphadenopathy, axillary; Neck mass; Lung nodules; Iron deficiency anemia due to sideropenic dysphagia Discharge Disposition: Discharged to home or Selfcare 09/29/2024 Travel 09/28/2024 7:21 AM CDT - 09/28/2024 11:59 PM CDT Hospital Encounter [facility] [address] [place] [address] Provider, Not On File Discharge Disposition: Discharged to home or Selfcare 09/27/2024 Travel 09/25/2024 12:42 PM CDT - 09/25/2024 11:59 PM CDT Hospital Encounter [facility] Nuclear Medicine [address] [place] [address] Jose Barber MD Discharge Disposition: Discharged to home or Selfcare 09/25/2024 9:13 AM CDT - 09/25/2024 12:41 PM CDT Hospital Encounter [facility] Nuclear Medicine [address] [place] [address] Jose Barber MD Discharge Disposition: Discharged to home or Selfcare 09/24/2024 Travel 09/21/2024 1:02 PM CDT - 09/21/2024 11:59 PM CDT Hospital Encounter [facility] CT [address] [place] [address] Jose Barber MD Discharge Disposition: Discharged to home or Selfcare 09/21/2024 1:02 PM CDT - 09/21/2024 11:59 PM CDT Hospital Encounter [facility] CT [address] [place] [address] Jose Barber MD Discharge Disposition: Discharged to home or Selfcare 09/21/2024 Travel 08/29/2024 10:00 AM CDT Lab [facility] [address] [place] [address] Jose Barber MD Pain in joints of both feet; Bone lesion; Neck mass; Primary hypertension; Iron deficiency anemia, unspecified iron deficiency anemia type Discharge Disposition: Discharged to home or Selfcare 08/29/2024 9:20 AM CDT Office Visit [facility] [address] [place] [phone] Jose Barber MD Pain in joints of both feet (Primary Dx); Bone lesion; Neck mass; Primary hypertension; Iron deficiency anemia, unspecified iron deficiency anemia type; Lymphadenopathy, axillary Discharge Disposition: Discharged to home or Selfcare 08/29/2024 Travel from Last 3 Months Family History Medical History Relation Name Comments Colon Cancer Father Cancer Maternal Aunt Cancer Maternal Grandmother Relation Name Status Comments Father Alive Maternal Aunt Maternal Grandmother Mother Alive Social History Tobacco Use Types Packs/Day Years Used Date Smoking Tobacco: Every Day Cigarettes 0.3 25.1 Started: 08/30/1999 Smokeless Tobacco: Never Tobacco Cessation:Ready to Q uit: Not Asked; Counseling Given: Not Answered Alcohol Use Standard Drinks/Week Comments Not Currently 0 (1 standard drink = 0.6 oz pure alcohol) Stopped prior to completing rehab in Jun 2024 Sex and Gender Information Value Date Recorded Sex Assigned at Not on file Legal Sex Male 4:52 PM CDT Gender Identity Not on file Sexual Orientation Not on file Last Filed Vital Signs Vital Sign Reading Time Taken Comments Blood Pressure 105/73 09/29/2024 11:49 AM CDT Pulse 89 09/29/2024 11:49 AM CDT Temperature 36.9 C (98.5 F) 09/29/2024 11:49 AM CDT Respiratory Rate 20 09/29/2024 11:49 AM CDT Oxygen Saturation 100% 09/29/2024 11:49 AM CDT Inhaled Oxygen Concentration - - Weight 50.5 kg (111 lb 6.4 oz) 09/29/2024 11:49 AM CDT Height 167.6 cm (5' 6) 09/29/2024 11:49 AM CDT Body Mass Index 17.98 09/29/2024 11:49 AM CDT Plan of Treatment Upcoming Encounters Date Type Department Care Team (Late st Contact Info) Description 10/30/2024 11:20 AM CDT [facility] [address] [place] [address] Jose Barber MD [address] [place] [address] Discharge Disposition: Discharged to home or Selfcare 10/30/2024 11:40 AM CDT Office Visit [facility] [address] [place] [address] Jose Barber MD [address] [place] [address] Discharge Disposition: Discharged to home or Selfcare Health Maintenance Due Date Last Done Comments Hepatitis C Virus (HCV) Screening 1981 TdaP Immunization 1981 Hepatitis B Immunization (1 of 3 - 19+ 3-dose series) 2000 Pneumococcal Immunization Combined (1 of 2 - PCV) 2000 SARS-COV-2 Immunization (4 - season) 2024 06/13/2021, 11/11/2020, 10/21/2020 Influenza Immunization (Seas on Ended) 2025 02/23/2023 Respiratory Syncytial Virus (RSV) Immunization (Adult) (1 - 1-dose 75+ series) 2056 Human Papillomavirus (HPV) Immunization Aged Out No longer eligible b ased on patient's age to complete this topic Meningococcal Immunization (ACWY) Aged Out No longer eligible b ased on patient's age to complete this topic Rotavirus Immunization Aged Out No lo nger eligible based on patient's age to complete this topic Procedures Procedure Name Priority Date/Time Associated Diagnosis Comments PET CT TUMOR IMAGING SKULL BASE TO MID THIGH Routine 10/11/2024 2:15 PM CDT Ankylosing spondylitis of multiple sites in spine (HCC) Lymphadenopathy, axillary Neck mass Lung nodules CT REFERENCE IMAGES FOR IMAGE IMPORT Routine 09/28/2024 7:22 AM CDT NM BONE SCAN WHOLE BODY Routine 09/26/19 1:04 PM CDT Pain in joints of both feet Bone lesion Neck mass Primary hypertension Iron deficiency anemia, unspecified iron deficiency anemia type CT CHEST ABDOMEN AND PELVIS W CONTRAST Routine 09/21/2024 2:19 PM CDT Pain in joints of both feet Bone lesion Neck mass Primary hypertension Iron deficiency anemia, unspecified iron deficiency anemia type CT SOFT TISSUE NECK W CONTRAST Routine 09/21/2024 2:18 PM CDT Pain in joints of both feet Bone lesion Neck mass Primary hypertension Iron deficiency anemia, unspecified iron deficiency anemia type CBC WITH AUTO DIFFERENTIAL Routine 08/29/2024 10:54 AM CDT Pain in joints of both feet Bone lesion Neck mass Primary hypertension Iron deficiency anemia, unspecified iron deficiency anemia type HIV 1 & 2 ANTIBODY & ANTIGEN SCREEN Routine 08/29/2024 10:54 AM CDT Bone lesion Neck mass PSA DIAGNOSTIC,TOTAL Routine 08/29/2024 10:54 AM CDT Pain in joints of both feet Bone lesion Neck mass Primary hypertension Iron deficiency anemia, unspecified iron deficiency anemia type RHEUMATOID FACTOR (RFQT) QUANT Routine 08/29/2024 10:54 AM CDT Pain in joints of both feet Bone lesion Neck mass Primary hypertension Iron deficiency anemia, unspecified iron deficiency anemia type GENOVEVA SCREEN MULTIPLEX W/REFLEX PHILLIP Routine 08/29/2024 10:54 AM CDT Pain in joints of both feet Bone lesion Neck mass Primary hypertension Iron deficiency anemia, unspecified iron deficiency anemia type ERYTHROCYTE SEDIMENTATION RATE (ESR) Routine 08/29/2024 10:54 AM CDT Pain in joints of both feet Bone lesion Neck mass Primary hypertension Iron deficiency anemia, unspecified iron deficiency anemia type FREE KAPPA & LAMBDA LIGHT CHAINS SERUM Routine 08/29/2024 10:54 AM CDT Pain in joints of both feet Bone lesion Neck mass Primary hypertension Iron deficiency anemia, unspecified iron deficiency anemia type IMMUNOFIXATION W/ ELECTROPHORESIS SERUM Routine 08/29/2024 10:54 AM CDT Pain in joints of both feet Bone lesion Neck mass Primary hypertension Iron deficiency anemia, unspecified iron deficiency anemia type IRON,TRANSFERN,CALC.TIB C,%SAT Routine 08/29/2024 10:54 AM CDT Pain in joints of both feet Bone lesion Neck mass Primary hypertension Iron deficiency anemia, unspecified iron deficiency anemia type FERRITIN Routine 08/29/2024 10:54 AM CDT Pain in joints of both feet Bone lesion Neck mass Primary hypertension Iron deficiency anemia, unspecified iron deficiency anemia type COMPLETE BLOOD COUNT (CBC) WITH DIFF Routine 08/29/2024 10:54 AM CDT Pain in joints of both feet Bone lesion Neck mass Primary hypertension Iron deficiency anemia, unspecified iron deficiency anemia type CMP (COMPREHENSIVE METABOLIC PANEL) Routine 08/29/2024 10:54 AM CDT Pain in joints of both feet Bone lesion Neck mass Primary hypertension Iron deficiency anemia, unspecified iron deficiency anemia type FAMILY MEDICINE CONSULT 08/19/19 12:00 AM CDT XR - LOWER EXTREMITY 08/16/2024 12:00 AM CDT from Last 3 Months Results * PET CT TUMOR IMAGING SKULL BASE TO MID THIGH (10/11/2024 2:15 PM CDT) Anatomical Region Laterality Modality BODY N/A Positron Emissio n Tomography (PET) 10/13/2024 10:0 1 AM CDT Impressions 10/13/2024 10:03 AM CDT IMPRESSION: No abnormal FDG uptake within the low-attenuation lesions in the neck. Borderline enlarged right axillary lymph node has an SUV of 2.3 and is unchanged in size when compared to the prior study. This is favored to be reactive. No abnormal uptake within the iliac bones or sacral alae. Mild uptake within the bilateral hip joints, sternoclavicular joints, and glenohumeral joints is likely reactive/inflammatory. Noncalcified pulmonary nodules measuring up to 3 mm show no abnormal FDG uptake but are small and may be below PET resolution. Attention on follow-up imaging recommended. Trace pleural effusions. Narrative 10/13/2024 10:03 AM CDT EXAM DESCRIPTION: PET CT TUMOR IMAGING SKULL BASE TO MID THIGH RADIOPHARMACEUTICAL: 12.2 mCi F-18 Fluorodeoxyglucose (FDG) via a right antecubital vein IV site REASON FOR STUDY: Lung nodule evaluation. Neck masses. TECHNIQUE: The patient's fasting blood glucose level, measured by glucometer before injection of FDG, was 90 mg/dL. After intravenous administration of FDG, noncontrast CT images were obtained for attenuation correction and for fusion with emission PET images to allow for anatomical localization of PET findings. Emission PET images were then obtained. The reported standardized uptake value maximum (SUVmax) values have been normalized to body weight (SUVbw). The area imaged spanned the region from the skull vertex to the proximal thighs . The time from injection of FDG to start of imaging was 66 minutes. COMPARISON: CT neck 09/21/2024, CT chest, abdomen, pelvis 09/21/2024, bone scan 09/25/2024 FINDINGS: For reference, the maximum SUV of the ascending thoracic aorta is 1.7 . The maximum SUV of the liver is 2 . Head: Normal FDG uptake is seen in the included portion of the brain. Neck: The 3.1 cm low-attenuation lesions in the right inferior neck shows no focal FDG uptake. The low-attenuation 4.8 cm lesion in the left posterolateral neck also shows no focal FDG uptake. No hypermetabolic cervical lymphadenopathy. Chest: Borderline enlarged right axillary lymph node measuring 1.5 x 1.4 cm has an SUV of 2.3. This is unchanged in size when compared to the prior study and is favored to be reactive. Noncalcified 3 mm nodule in the anterior right upper lobe is unchanged and shows no abnormal FDG uptake. Noncalcified 2 mm nodule in the anterior inferior right upper lobe is unchanged and shows no abnormal FDG uptake. Heart size is within normal limits. Trace coronary artery calcification. Trace pericardial effusion. Trace pleural effusions. Fluid attenuation lesions in the anterior chest wall measuring up to 3.6 cm show no focal FDG uptake. Abdomen and Pelvis: No focal hypermetabolic liver lesion. No calcified gallstones. The spleen is normal. Normal pancreas without focal FDG activity. No focal hypermetabolic adrenal lesion. Normal genitourinary activity. The bladder is decompressed and incompletely evaluated. Normal gastrointestinal activity is seen. No hypermetabolic lymph nodes in the abdomen or pelvis. Bones: Moderate uptake within the bilateral hip joints can be seen with degenerative change. No abnormal uptake within the iliac bones or sacral alae. Mild uptake within the bilateral sternoclavicular joints and the manubrial sternal joint. This is likely reactive/inflammatory. Mild uptake in the left C7-T1 facet. Mild uptake in the bilateral glenohumeral joints is also noted. THIS IS AN ELECTRONICALLY VERIFIED FINAL REPORT 10/13/2024 10:01 AM - Electronically signed by Lamont Kelly M.D. LB: LAKSHMI Report ID: [id number] Reading Location: [id number] Procedure Note Lamont Kelly MD - 10/13/2024 EXAM DESCRIPTION: PET CT TUMOR IMAGING SKULL BASE TO MID THIGH RADIOPHARMACEUTICAL: 12.2 mCi F-18 Fluorodeoxyglucose (FDG) via a right antecubital vein IV site REASON FOR STUDY: Lung nodule evaluation. Neck masses. TECHNIQUE: The patient's fasting blood glucose level, measured by glucometer before injection of FDG, was 90 mg/dL. After intravenous administration of FDG, noncontrast CT images were obtained for attenuation correction and for fusion with emission PET images to allow for anatomical localization of PET findings. Emission PET images were then obtained. The reported standardized uptake value maximum (SUVmax) values have been normalized to body weight (SUVbw). The area imaged spanned the region from the skull vertex to the proximal thighs . The time from injection of FDG to start of imaging was 66 minutes. COMPARISON: CT neck 09/21/2024, CT chest, abdomen, pelvis 09/21/2024, bone scan 09/25/2024 FINDINGS: For reference, the maximum SUV of the ascending thoracic aorta is 1.7 . The maximum SUV of the liver is 2 . Head: Normal FDG uptake is seen in the included portion of the brain. Neck: The 3.1 cm low-attenuation lesions in the right inferior neck shows no focal FDG uptake. The low-attenuation 4.8 cm lesion in the left posterolateral neck also shows no focal FDG uptake. No hypermetabolic cervical lymphadenopathy. Chest: Borderline enlarged right axillary lymph node measuring 1.5 x 1.4 cm has an SUV of 2.3. This is unchanged in size when compared to the prior study and is favored to be reactive. Noncalcified 3 mm nodule in the anterior right upper lobe is unchanged and shows no abnormal FDG uptake. Noncalcified 2 mm nodule in the anterior inferior right upper lobe is unchanged and shows no abnormal FDG uptake. Heart size is within normal limits. Trace coronary artery calcification. Trace pericardial effusion. Trace pleural effusions. Fluid attenuation lesions in the anterior chest wall measuring up to 3.6 cm show no focal FDG uptake. Abdomen and Pelvis: No focal hypermetabolic liver lesion. No calcified gallstones. The spleen is normal. Normal pancreas without focal FDG activity. No focal hypermetabolic adrenal lesion. Normal genitourinary activity. The bladder is decompressed and incompletely evaluated. Normal gastrointestinal activity is seen. No hypermetabolic lymph nodes in the abdomen or pelvis. Bones: Moderate uptake within the bilateral hip joints can be seen with degenerative change. No abnormal uptake within the iliac bones or sacral alae. Mild uptake within the bilateral sternoclavicular joints and the manubrial sternal joint. This is likely reactive/inflammatory. Mild uptake in the left C7-T1 facet. Mild uptake in the bilateral glenohumeral joints is also noted. THIS IS AN ELECTRONICALLY VERIFIED FINAL REPORT 10/13/2024 10:01 AM - Electronically signed by Lamont Kelly M.D. LB: LAKSHMI Report ID: [id number] Reading Location: [id number] IMPRESSION: No abnormal FDG uptake within the low-attenuation lesions in the neck. Borderline enlarged right axillary lymph node has an SUV of 2.3 and is unchanged in size when compared to the prior study. This is favored to be reactive. No abnormal uptake within the iliac bones or sacral alae. Mild uptake within the bilateral hip joints, sternoclavicular joints, and glenohumeral joints is likely reactive/inflammatory. Noncalcified pulmonary nodules measuring up to 3 mm show no abnormal FDG uptake but are small and may be below PET resolution. Attention on follow-up imaging recommended. Trace pleural effusions. Jose Barber MD IMG PET Final Re sult * CT REFERENCE IMAGES FOR IMAGE IMPORT (09/28/2024 7:22 AM CDT) us Not On File Provider [facility] [place] ORDERABLES Final Res ult * NM BONE SCAN WHOLE BODY (09/25/2024 1:04 PM CDT) Anatomical Region Laterality Modality BODY N/A Nuclear Medicine 09/25/2024 3:13 PM CDT Impressions 09/25/2024 3:15 PM CDT IMPRESSION: 1. No suspicious focal areas of uptake are seen to suggest osteoblastic metastatic disease. 2. Degenerative type uptake within the shoulders and hips bilaterally. 3. Scattered areas of uptake within the left foot in a pattern most typical of degenerative change but is asymmetric when compared to the right foot. Narrative 09/25/2024 3:15 PM CDT EXAM DESCRIPTION: CA BONE SCAN WHOLE BODY RADIOPHARMACEUTICAL: 25.8 mCi Tc-99m MDP via a left antecubital vein IV site REASON FOR STUDY: Bilateral shoulder, feet, and hip pain for few months. Neck mass. Bone lesion and femur. TECHNIQUE: Delayed whole-body scintigrams were obtained. COMPARISON: Prior Bone Scan: None Prior Anatomic imaging: CT neck, chest, abdomen, pelvis 09/21/2024 FINDINGS: Delayed total body images were obtained. There is degenerative type uptake within the shoulders and hips. Degenerative type uptake in the thoracolumbar spine. Degenerative type uptake within the wrists, right greater than left. Scattered areas of uptake within the left foot are nonspecific but favored to be degenerative. Uptake at the sternomanubrial joint likely related to degenerative change. No suspicious focal uptake to suggest osteoblastic metastatic disease. Normal genitourinary and soft tissue uptake. THIS IS AN ELECTRONICALLY VERIFIED FINAL REPORT 09/25/2024 3:13 PM - Electronically signed by Lamont Kelly M.D. LB: LAKSHMI Report ID: [id number] Reading Location: [id number] Procedure Note Lamont Kelly MD - 09/25/2024 EXAM DESCRIPTION: CA BONE SCAN WHOLE BODY RADIOPHARMACEUTICAL: 25.8 mCi Tc-99m MDP via a left antecubital vein IV site REASON FOR STUDY: Bilateral shoulder, feet, and hip pain for few months. Neck mass. Bone lesion and femur. TECHNIQUE: Delayed whole-body scintigrams were obtained. COMPARISON: Prior Bone Scan: None Prior Anatomic imaging: CT neck, chest, abdomen, pelvis 09/21/2024 FINDINGS: Delayed total body images were obtained. There is degenerative type uptake within the shoulders and hips. Degenerative type uptake in the thoracolumbar spine. Degenerative type uptake within the wrists, right greater than left. Scattered areas of uptake within the left foot are nonspecific but favored to be degenerative. Uptake at the sternomanubrial joint likely related to degenerative change. No suspicious focal uptake to suggest osteoblastic metastatic disease. Normal genitourinary and soft tissue uptake. THIS IS AN ELECTRONICALLY VERIFIED FINAL REPORT 09/25/2024 3:13 PM - Electronically signed by Lamont Kelly M.D. LB: LB Report ID: [id number] Reading Location: [id number] IMPRESSION: 1. No suspicious focal areas of uptake are seen to suggest osteoblastic metastatic disease. 2. Degenerative type uptake within the shoulders and hips bilaterally. 3. Scattered areas of uptake within the left foot in a pattern most typical of degenerative change but is asymmetric when compared to the right foot. [facility] Alea Barber MD [facility] [place] ORDERABLES Final Result * CT CHEST ABDOMEN AND PELVIS W CONTRAST (09/21/2024 2:19 PM CDT) Anatomical Region Laterality Modality Chest, Abdomen, Pelvis N/A Computed Tomography 09/26/2024 11:0 4 AM CDT Impressions 09/26/2024 11:06 AM CDT IMPRESSION: 1. Relatively symmetric mixed lytic and sclerotic osseous changes about the bilateral sacroiliac joints, consistent with spondyloarthropathy. 2. Indeterminate circumscribed subcutaneous fluid collections within the chest and neck, the largest measuring 5.1 cm in the left posterolateral neck. 3. Mild axillary, external iliac, inguinal lymphadenopathy. 4. Trace bilateral pleural effusions. Narrative 09/26/2024 11:06 AM CDT EXAM DESCRIPTION: CT CHEST ABDOMEN AND PELVIS W CONTRAST REASON FOR STUDY: f/u XR pelvis 08/16/24 notes indistinct patchy sclerosis of pelvis and LT femur. suspicious for mets x 1 month. TECHNIQUE: CT scan of the chest, abdomen, and pelvis performed with intravenous and without oral contrast using helical scanning technique with dynamic intravenous contrast injection. Reconstructed coronal and sagittal MPR images reviewed. All images stored on PACS. Automated exposure control was used as a dose optimization technique for this examination. CONTRAST TYPE/DOSE: 100mL of IOPAMIDOL 76 % IV SOLN injected via Intravenous COMPARISON: CT dated 09/21/2024 FINDINGS: CHEST LUNGS: The central airways are clear. The central airways are clear. No evidence of pneumonia. Bilateral lower lobe subsegmental atelectasis. 3 mm anterior right upper lobe nodule (series 7, image 67). Bandlike atelectasis versus scarring in the left lower lobe. PLEURA: Trace bilateral pleural effusions. MEDIASTINUM/COMFORT: No identified masses or abnormal nodes. HEART: Heart size is normal with no pericardial effusion. VASCULATURE CHEST: No thoracic aortic aneurysm or dissection. AXILLA: Enlarged right axillary lymph nodes. For example, 1.1 cm node on series 3, image 73. 1.2 cm node on image 63. 1.5 cm node on image 57. Borderline enlarged 1 cm left axillary node (59). A few prominent, though subcentimeter left supraclavicular nodes. For example, an 8 mm node on series 3, image 30. CHEST WALL: No masses. No subcutaneous air. HARDWARE/LINES/TUBES: None. MUSCULOSKELETAL CHEST: No suspicious osseous lesions or acute fractures. OTHER: Partially visualized left posterior circumscribed fluid density collection measuring 5.1 x 4.1 cm, stable. Stable right anterolateral infrahyoid subcutaneous circumscribed fluid collection measuring 3.0 x 2.2 cm. Additional circumscribed subcutaneous fluid collection in the anterior chest to the left midline measuring 3.6 x 1.5 cm (series 3, image 79). Right anterolateral 1.3 x 0.8 cm fluid collection on the same image. ABDOMEN/PELVIS LIVER: Normal size. No identified cystic or solid masses. GALLBLADDER: No stones identified. No wall thickening or inflammatory changes. BILE DUCTS: No intrahepatic or extrahepatic ductal dilatation. SPLEEN: Normal size. No focal lesions. PANCREAS: No identified cystic or solid masses. No significant calcifications. No adjacent inflammation or peripancreatic fluid collections. Pancreatic duct not dilated. ADRENALS: Normal. KIDNEYS/URINARY TRACT: No identified significant cystic or solid masses. No visualized stones. No hydronephrosis or hydroureter. Symmetric enhancement. Urinary bladder is decompressed. There is circumferential bladder wall thickening. GI: The esophagus and stomach are unremarkable. No dilated bowel loops. No obvious wall thickening. No evidence of acute appendicitis. No significant diverticular disease. PERITONEUM: No ascites or free air. RETROPERITONEUM: No mass or adenopathy. REPRODUCTIVE: No significant abnormality. VASCULATURE ABDOMEN: No abdominal aortic aneurysm. MUSCULOSKELETAL ABDOMEN PELVIS: Relatively symmetric mixed lytic and sclerotic osseous appearance about the bilateral sacroiliac joints, with prominent subchondral erosions.. No suspicious osseous lesions or acute fractures. OTHER: Enlarged left axillary lymph nodes. For example, a 1.2 cm in short axis node on series 3, image 235. 2.7 x 1.0 cm left external iliac chain node (214). 1.1 cm right external iliac node (203). THIS IS AN ELECTRONICALLY VERIFIED FINAL REPORT 09/26/2024 11:04 AM - Electronically signed by Pablo Salter M.D. KR: MEJIA Report ID: [id number] Reading Location: [place] [address] Procedure Note Pablo Salter MD - 09/26/2024 EXAM DESCRIPTION: CT CHEST ABDOMEN AND PELVIS W CONTRAST REASON FOR STUDY: f/u XR pelvis 08/16/24 notes indistinct patchy sclerosis of pelvis and LT femur. suspicious for mets x 1 month[address] TECHNIQUE: CT scan of the chest, abdomen, and pelvis performed with intravenous and without oral contrast using helical scanning technique with dynamic intravenous contrast injection. Reconstructed coronal and sagittal MPR images reviewed. All images stored on PACS. Automated exposure control was used as a dose optimization technique for this examination. CONTRAST TYPE/DOSE: 100mL of IOPAMIDOL 76 % IV SOLN injected via Intravenous COMPARISON: CT dated 09/21/2024 FINDINGS: CHEST LUNGS: The central airways are clear. The central airways are clear. No evidence of pneumonia. Bilateral lower lobe subsegmental atelectasis. 3 mm anterior right upper lobe nodule (series 7, image 67). Bandlike atelectasis versus scarring in the left lower lobe. PLEURA: Trace bilateral pleural effusions. MEDIASTINUM/COMFORT: No identified masses or abnormal nodes. HEART: Heart size is normal with no pericardial effusion. VASCULATURE CHEST: No thoracic aortic aneurysm or dissection. AXILLA: Enlarged right axillary lymph nodes. For example, 1.1 cm node on series 3, image 73. 1.2 cm node on image 63. 1.5 cm node on image 57. Borderline enlarged 1 cm left axillary node (59). A few prominent, though subcentimeter left supraclavicular nodes. For example, an 8 mm node on series 3, image 30. CHEST WALL: No masses. No subcutaneous air. HARDWARE/LINES/TUBES: None. MUSCULOSKELETAL CHEST: No suspicious osseous lesions or acute fractures. OTHER: Partially visualized left posterior circumscribed fluid density collection measuring 5.1 x 4.1 cm, stable. Stable right anterolateral infrahyoid subcutaneous circumscribed fluid collection measuring 3.0 x 2.2 cm. Additional circumscribed subcutaneous fluid collection in the anterior chest to the left midline measuring 3.6 x 1.5 cm (series 3, image 79). Right anterolateral 1.3 x 0.8 cm fluid collection on the same image. ABDOMEN/PELVIS LIVER: Normal size. No identified cystic or solid masses. GALLBLADDER: No stones identified. No wall thickening or inflammatory changes. BILE DUCTS: No intrahepatic or extrahepatic ductal dilatation. SPLEEN: Normal size. No focal lesions. PANCREAS: No identified cystic or solid masses. No significant calcifications. No adjacent inflammation or peripancreatic fluid collections. Pancreatic duct not dilated. ADRENALS: Normal. KIDNEYS/URINARY TRACT: No identified significant cystic or solid masses. No visualized stones. No hydronephrosis or hydroureter. Symmetric enhancement. Urinary bladder is decompressed. There is circumferential bladder wall thickening. GI: The esophagus and stomach are unremarkable. No dilated bowel loops. No obvious wall thickening. No evidence of acute appendicitis. No significant diverticular disease. PERITONEUM: No ascites or free air. RETROPERITONEUM: No mass or adenopathy. REPRODUCTIVE: No significant abnormality. VASCULATURE ABDOMEN: No abdominal aortic aneurysm. MUSCULOSKELETAL ABDOMEN PELVIS: Relatively symmetric mixed lytic and sclerotic osseous appearance about the bilateral sacroiliac joints, with prominent subchondral erosions.. No suspicious osseous lesions or acute fractures. OTHER: Enlarged left axillary lymph nodes. For example, a 1.2 cm in short axis node on series 3, image 235. 2.7 x 1.0 cm left external iliac chain node (214). 1.1 cm right external iliac node (203). THIS IS AN ELECTRONICALLY VERIFIED FINAL REPORT 09/26/2024 11:04 AM - Electronically signed by Pablo Salter M.D. KR: MEJIA Report ID: [id number] Reading Location: [id number] IMPRESSION: 1. Relatively symmetric mixed lytic and sclerotic osseous changes about the bilateral sacroiliac joints, consistent with spondyloarthropathy. 2. Indeterminate circumscribed subcutaneous fluid collections within the chest and neck, the largest measuring 5.1 cm in the left posterolateral neck. 3. Mild axillary, external iliac, inguinal lymphadenopathy. 4. Trace bilateral pleural effusions. [facility] Alea Barber MD IMG CT ORDERABLES Final Result * CT SOFT TISSUE NECK W CONTRAST (09/21/2024 2:18 PM CDT) Anatomical Region Laterality Modality Spine N/A Computed Tomogra phy 09/21/2024 3:08 PM CDT Impressions 09/21/2024 3:10 PM CDT IMPRESSION: 1. Fluid density partially exophytic masses in the right lateral infrahyoid neck and left posterior suprahyoid neck as described. The imaging features are nonspecific. With the provided history of concern for metastatic disease consider a PET-CT. 2. Elsewhere a few nonspecific by CT size criteria cervical chain lymph nodes as described. 3. Asymmetric effacement of the left puriform sinus and asymmetry about the vocal cord. Please correlate with direct visualization. 4. Rounded lucent lesions in the cervical spine and thoracic spine are indeterminate and could reflect intraosseous hemangiomas. If there is concern for metastatic disease then attention on follow-up PET-CT and/or contrast-enhanced MRI. 5. Cervical spine morphologic features suggesting seronegative spondyloarthropathy such as ankylosing spondylitis or diffuse idiopathic skeletal hyperostosis. Request clinical correlation. Narrative 09/21/2024 3:10 PM CDT EXAM DESCRIPTION: CT SOFT TISSUE NECK W CONTRAST REASON FOR STUDY: Pain in the joints of both feet. Bone lesion. Neck mass. Primary hypertension. Iron-deficiency anemia. Musculoskeletal neoplasm. F/u XR pelvis 08/16/24 notes indistinct patchy sclerosis of pelvis and LT femur. suspicious for mets x 1 month. TECHNIQUE: Post IV contrast scanning from skull base through lung apices. Reconstructed MPR images reviewed. All images stored on PACS. Automated exposure control was used as a dose optimization technique for this examination. CONTRAST TYPE/DOSE: 100mL of IOPAMIDOL 76 % IV SOLN injected via Intravenous COMPARISON: None available. FINDINGS: The bilateral globes are symmetric. Mucosal thickening in the bilateral ethmoid air cells. Chronic nasal bone deformity. The nasal septum is deviated to the right with a spur abutting the inferior turbinate. There is scattered mucosal thickening in the nasal cavity on both sides. A few opacified bilateral mastoid air cells. The temporomandibular joints are symmetrically placed. The zygomatic arches are intact. The bilateral parotid and submandibular glands enhance symmetrically. The dental amalgam related streak artifact limits the assessment of the adjacent structures including the oral cavity and oropharynx. Note made of an occasional dental cavity and periapical lucency to include 2nd to last remaining left mandibular molar. There is asymmetric effacement of the left puriform sinus (series 2, image 47) and asymmetry of the level of the vocal cords. The remainder of the airway is midline and patent. The bilateral internal jugular veins are contrast filled. The bilateral common carotid arteries and cervical internal carotid arteries are patent. Right lateral infrahyoid neck skin marker at the level of the thyroid lamina. In the adjacent subcutaneous tissues is a partially exophytic well-circumscribed fluid density focus measuring up to 2.3 x 3 x 2.7 cm (maximum AP, transverse and craniocaudal dimensions respectively). There is bulging of the skin surface along the superficial margin. Along the deep margin this lesion abuts the strap muscle. There is compression of and adjacent superficial neck vessel along the posterior margin. No significant mass effect on the adjacent airway. A left posterolateral suprahyoid neck skin marker at the level of C3 vertebral body. In the adjacent subcutaneous tissues is a partially exophytic well-circumscribed fluid density focus measuring up to 5.3 x 4.4 x 5.2 cm (maximum AP, transverse and craniocaudal dimensions respectively). Elsewhere in the neck there are a few scattered nonspecific lymph nodes. For example right level 1 B 0.8 x 0.6 cm, right level 2A 0.8 x 0.7 cm and right level 3 0.9 x 0.9 cm. Left thyroid 0.2 cm low-attenuation focus, Based on size criteria alone, no specific follow-up imaging is indicated. If there is specific concerning laboratory or patient history, dedicated thyroid ultrasound could be considered for further evaluation. Nonspecific mild increased sclerosis throughout the imaged cervical spine. Relative squaring of the vertebral bodies with preservation intervertebral disc heights and flowing anterior syndesmophytes. There is fusion across multiple facet joints on both sides. Constellation of findings raising the possibility of diffuse idiopathic skeletal hyperostosis (DISH) or seronegative spondyloarthropathy such as ankylosing spondylitis. Some of the anterior syndesmophyte are discontinuous, for example at C2-C3 and C7-T1. The T1 vertebral body 0.5 cm rounded lucent lesion is nonspecific and could reflect an intraosseous hemangioma. Similar rounded lucent focus in the C3 vertebral body to the left of midline (series 602, image 40). If there is concern for metastatic disease then attention on follow-up contrast-enhanced MRI. THIS IS AN ELECTRONICALLY VERIFIED FINAL REPORT 09/21/2024 3:08 PM - Electronically signed by Andrew Nicole D.O. AP: AP Report ID: [id number] Reading Location: [place] [address] Procedure Note Andrew Nicole DO - 09/21/2024 EXAM DESCRIPTION: CT SOFT TISSUE NECK W CONTRAST REASON FOR STUDY: Pain in the joints of both feet. Bone lesion. Neck mass. Primary hypertension. Iron-deficiency anemia. Musculoskeletal neoplasm. F/u XR pelvis 08/16/24 notes indistinct patchy sclerosis of pelvis and LT femur. suspicious for mets x 1 month. TECHNIQUE: Post IV contrast scanning from skull base through lung apices. Reconstructed MPR images reviewed. All images stored on PACS. Automated exposure control was used as a dose optimization technique for this examination. CONTRAST TYPE/DOSE: 100mL of IOPAMIDOL 76 % IV SOLN injected via Intravenous COMPARISON: None available. FINDINGS: The bilateral globes are symmetric. Mucosal thickening in the bilateral ethmoid air cells. Chronic nasal bone deformity. The nasal septum is deviated to the right with a spur abutting the inferior turbinate. There is scattered mucosal thickening in the nasal cavity on both sides. A few opacified bilateral mastoid air cells. The temporomandibular joints are symmetrically placed. The zygomatic arches are intact. The bilateral parotid and submandibular glands enhance symmetrically. The dental amalgam related streak artifact limits the assessment of the adjacent structures including the oral cavity and oropharynx. Note made of an occasional dental cavity and periapical lucency to include 2nd to last remaining left mandibular molar. There is asymmetric effacement of the left puriform sinus (series 2, image 47) and asymmetry of the level of the vocal cords. The remainder of the airway is midline and patent. The bilateral internal jugular veins are contrast filled. The bilateral common carotid arteries and cervical internal carotid arteries are patent. Right lateral infrahyoid neck skin marker at the level of the thyroid lamina. In the adjacent subcutaneous tissues is a partially exophytic well-circumscribed fluid density focus measuring up to 2.3 x 3 x 2.7 cm (maximum AP, transverse and craniocaudal dimensions respectively). There is bulging of the skin surface along the superficial margin. Along the deep margin this lesion abuts the strap muscle. There is compression of and adjacent superficial neck vessel along the posterior margin. No significant mass effect on the adjacent airway. A left posterolateral suprahyoid neck skin marker at the level of C3 vertebral body. In the adjacent subcutaneous tissues is a partially exophytic well-circumscribed fluid density focus measuring up to 5.3 x 4.4 x 5.2 cm (maximum AP, transverse and craniocaudal dimensions respectively). Elsewhere in the neck there are a few scattered nonspecific lymph nodes. For example right level 1 B 0.8 x 0.6 cm, right level 2A 0.8 x 0.7 cm and right level 3 0.9 x 0.9 cm. Left thyroid 0.2 cm low-attenuation focus, Based on size criteria alone, no specific follow-up imaging is indicated. If there is specific concerning laboratory or patient history, dedicated thyroid ultrasound could be considered for further evaluation. Nonspecific mild increased sclerosis throughout the imaged cervical spine. Relative squaring of the vertebral bodies with preservation intervertebral disc heights and flowing anterior syndesmophytes. There is fusion across multiple facet joints on both sides. Constellation of findings raising the possibility of diffuse idiopathic skeletal hyperostosis (DISH) or seronegative spondyloarthropathy such as ankylosing spondylitis. Some of the anterior syndesmophyte are discontinuous, for example at C2-C3 and C7-T1. The T1 vertebral body 0.5 cm rounded lucent lesion is nonspecific and could reflect an intraosseous hemangioma. Similar rounded lucent focus in the C3 vertebral body to the left of midline (series 602, image 40). If there is concern for metastatic disease then attention on follow-up contrast-enhanced MRI. THIS IS AN ELECTRONICALLY VERIFIED FINAL REPORT 09/21/2024 3:08 PM - Electronically signed by Andrew Nicole D.O. AP: AP Report ID: [id number] Reading Location: [place] [address] IMPRESSION: 1. Fluid density partially exophytic masses in the right lateral infrahyoid neck and left posterior suprahyoid neck as described. The imaging features are nonspecific. With the provided history of concern for metastatic disease consider a PET-CT. 2. Elsewhere a few nonspecific by CT size criteria cervical chain lymph nodes as described. 3. Asymmetric effacement of the left puriform sinus and asymmetry about the vocal cord. Please correlate with direct visualization. 4. Rounded lucent lesions in the cervical spine and thoracic spine are indeterminate and could reflect intraosseous hemangiomas. If there is concern for metastatic disease then attention on follow-up PET-CT and/or contrast-enhanced MRI. 5. Cervical spine morphologic features suggesting seronegative spondyloarthropathy such as ankylosing spondylitis or diffuse idiopathic skeletal hyperostosis. Request clinical correlation. Jose Barber MD IMG CT ORDERABLES Final Result * HIV 1 & 2 ANTIBODY & ANTIGEN SCREEN (08/29/2024 10:54 AM CDT) HIV 1 & 2 ANTIBODY & ANTIGEN SCREEN NON DETECTED NON DETECTED 08/29/2024 10:53 PM CDT [facility] Blood Venipuncture / Unknown 08/29/2024 10:54 AM CDT 08/29/2024 10:54 AM CDT Jose Barber MD LAB SEND OUTS Final Re sult [facility] [address] [place] [address], [place] * (ABNORMAL) IRON,TRANSFERN,CALC.TIBC,%SAT (08/29/2024 10:54 AM CDT) Pathologist [facility] IRON 12(L) 31 - 144 mcg/dL 08/29/2024 11:26 AM CDT [facility] TRANSFERRIN 192 174 - 364 mg/dL 08/29/2024 11:26 AM CDT [facility] TIBC, CALCULATED 240(L) 261 - 462 mcg/dL 08/29/2024 11:26 AM CDT [facility] % SATURATION * 5(L) 15 - 62 % 08/29/2024 11:26 AM CDT [facility] Blood Venipuncture / Unknown 08/29/2024 10:54 AM CDT 08/29/2024 10:54 AM CDT us Jose Barber MD CHEMISTRY ORDERABLES Fin al Result [facility] [address] [place] [address] * (ABNORMAL) CBC WITH AUTO DIFFERENTIAL (08/29/2024 10:54 AM CDT) Pathologist [facility] WBC 14.66(H) 4.00 - 12.00 10(3)/mcL 08/29/2024 11:07 AM CDT [facility] RBC 4.04(L) 4.40 - 5.80 10(6)/[facility] 08/29/2024 11:07 AM CDT [facility] HEMOGLOBIN (HGB) 10.8(L) 13.0 - 16.5 g/dL 08/29/2024 11:07 AM CDT [facility] HEMATOCRIT (HCT) 35.0(L) 38.0 - 50.0 % 08/29/2024 11:07 AM CDT [facility] MCV 86.6 82.0 - 96.0 fL 08/29/2024 11:07 AM CDT [facility] MCH 26.7 26.0 - 32.0 pg 08/29/2024 11:07 AM CDT [facility] MCHC 30.9(L) 31.0 - 36.0 g/dL 08/29/2024 11:07 AM CDT [facility] PLATELET COUNT 664(H) 140 - 440 10(3)/[facility] 08/29/2024 11:07 AM CDT [facility] RDW 16.1(H) 11.8 - 15.5 % 08/29/2024 11:07 AM CDT [facility] MPV 8.2 8.0 - 12.6 fL 08/29/2024 11:07 AM CDT [facility] NEUTROPHILS 61.8 40.0 - 68.0 % 08/29/2024 11:07 AM CDT [facility] LYMPHOCYTES 22.9 19.0 - 49.0 % 08/29[facility]24 [facility] MON[facility] 10.2 3.0 - 13.0 % 08/29/2024 11:07 AM CDT [facility] EOSINOPHILS 4.0 0.0 - 8.0 % 08/29/2024 11:07 AM [facility] BASOPHILS 1.1(H) 0.0 - 1.0 % 08/29/2024 11:07 AM [facility] ABSOLUTE NEUTROPHILS 9.06(H) 1.40 - 5.30 10(3)/[facility] 08/29/2024 11:07 AM CDT [facility] ABSOLUTE LYMPHOCYTES 3.36(H) 0.90 - 3.30 10(3)/[facility] 08/29/2024 11:07 AM T [facility] ABSOLUTE MONOCYTES 1.50(H) 0.10 - 0.90 10(3)/[facility] 08/29/2024 11:07 AM CDT [facility] ABSOLUTE EOSINOPHIL 0.58(H) 0.00 - 0.50 10(3)/[facility] 08/29/2024 11:07 AM T [facility] ABSOLUTE BASOPHILS 0.16(H) 0.00 - 0.10 10(3)/mcL 08/29/2024 11:07 AM CDT [facility] NRBC PER 100 WBC 0 08/30/19 25 11:07 AM CDT [facility] Blood Venipuncture / Unknown 08/29/2024 10:54 AM CDT 08/29/2024 10:54 AM CDT Jose Barber MD HEMATOLOGY ORDERABLES Fi nal Result Performing Organization Address City/[facility]/ZIP Co de Phone Number [facility] [address] [place] [address] * (ABNORMAL) FREE KAPPA & LAMBDA LIGHT CHAINS SERUM (08/29/2024 10:54 AM CDT) Free Nickerson Lt Chn 54.74(H) 3.30 - 19.40 mg/L 08/30/2024 10:08 AM CDT [facility] Free Lambda Lt Chn 49.82(H) 5.71 - 26.30 mg/L 08/30/2024 10:08 AM CDT [facility] free brett perez ratio 1.10 0.26 - 1.65 08/30/2024 10:08 AM CDT [facility] Blood Venipuncture / Unknown 08/29/2024 10:54 AM CDT 08/29/2024 10:54 AM CDT Jose Barber MD CHEMISTRY ORDERABLES Fin al Result [facility] [address] [place] [address], [place] * (ABNORMAL) ERYTHROCYTE SEDIMENTATION RATE (ESR) (08/29/2024 10:54 AM CDT) Pathologist [facility] ESR (SED RATE, ERYTHROCYTE SEDIMENTATION RATE) 64(H) <15 mm/h 08/29/2024 11:12 AM CDT [facility] Comment: Patients presenting with increased level of fibrinogen, gamma globulins, or abnormally shaped RBCs could affect the results for the erythrocyte sedimentation rate (ESR). Results should be clinically correlated. Blood Venipuncture / Unknown 08/29/2024 10:54 AM CDT 08/29/2024 10:54 AM CDT Jose Barber MD HEMATOLOGY ORDERABLES Fi nal Result Performing Organization Address City/[facility] Co de Phone Number [facility] [address] [place] [address] * RHEUMATOID FACTOR (RFQT) QUANT (08/29/2024 10:54 AM CDT) Pathologist [facility] RHEUMATOID FACTOR QT <13 <30 IU/mL 08/29/2024 11:26 AM CDT [facility] Blood Venipuncture / Unknown 08/29/2024 10:54 AM CDT 08/29/2024 10:54 AM CDT Narrative [facility] - 08/29/2024 11:26 AM CDT RHEUMATOID FACTORS CAN BE FOUND IN RHEUMATOID ARTHRITIS, SYPHILIS, VIRAL INFECTIONS, LEPROSY, CHRONIC LIVER DISEASE, NEOPLASMS, AND OTHER INFLAMMATORY CONDITIONS. RF PREVALENCE ALSO INCREASES WITH AGE. THUS A POSITIVE TEST IS NOT RESTRICTED TO RA. CONVERSELY, A NEGATIVE TEST DOES NOT RULE OUT RA, RHEUMATOID FACTORS ARE NOT DETECTABLE IN 10% OF ADULTS WITH THE DISEASE. Jose Barber MD CHEMISTRY ORDERABLES Fin al Result Performing Organization Address City/[facility] Co de Phone Number [facility] [address] [place] [address] * PSA DIAGNOSTIC,TOTAL (08/29/2024 10:54 AM CDT) Pathologist [facility] PSA, TOTAL (PROSTATIC SPECIFIC ANTIGEN) 1.20 <4.00 ng/mL 08/29/2024 11:44 AM CDT [facility] Blood Venipuncture / Unknown 08/29/2024 10:54 AM CDT 08/29/2024 10:54 AM CDT Narrative [facility] - 08/29/2024 11:44 AM CDT PSA NOTE: The PSA value should be used in conjunction with information available from clinical evaluation and other diagnostic procedures. The ALINITY Total PSA assay is a Chemiluminescent Microparticle Immunoassay (CMIA) for the quantitative determination of total PSA (both free PSA and PSA complexed to [id number]) in human serum. Total PSA values obtained with different assay methods, including García PSA assays, cannot be used interchangeably. Jose Barber MD CHEMISTRY ORDERABLES Fin al Result [facility] [address] [place] [address] * (ABNORMAL) IMMUNOFIXATION W/ ELECTROPHORESIS SERUM (08/29/2024 10:54 AM CDT) TOTAL PROTEIN 8.2(H) 6.0 - 8.0 g/dL 08/31/2024 1:56 PM CDT [facility] % ALBUMIN 39.2(L) 55.8 - 66.7 % 08/31/2024 1:56 PM CDT [facility] ALBUMIN SERUM 3.2 2.5 - 5.4 g/dL 08/31/2024 1:56 PM CDT [facility] % ALPHA 1 GLOBULIN 6.4(H) 2.9 - 4.9 % 08/31/2024 1:56 PM CDT [facility] ALPHA 1 0.5(H) 0.2 - 0.4 g/dL 08/31/2024 1:56 PM CDT [facility] % ALPHA 2 GLOBULIN 13.1(H) 7.1 - 11.8 % 08/31/2024 1:56 PM CDT [facility] ALPHA 2 1.1(H) 0.5 - 1.0 g/dL 08/31/2024 1:56 PM CDT [facility] % BETA 21.9(H) 8.4 - 13.1 % 08/31/2024 1:56 PM CDT [facility] BETA-GLOBULIN 1.8(H) 0.5 - 1.1 g/dL 08/31/2024 1:56 PM CDT [facility] % GAMMA GLOBULIN 19.4(H) 11.1 - 18.8 % 08/31/2024 1:56 PM CDT [facility] GAMMA 1.6(H) 0.7 - 1.5 g/dL 08/31/2024 1:56 PM CDT [facility] IMMUNOGLOBULIN G 1,861(H) 540 - 1,822 mg/dL 08/31/2024 1:56 PM CDT [facility] IMMUNOGLOBULIN A 712(H) 63 - 484 mg/dL 08/31/2024 1:56 PM CDT [facility] IMMUNOGLOBULIN M 106 22 - 240 mg/dL 08/31/2024 1:56 PM CDT [facility] INTERPRETATION SERUM No abnormal protein band is detected by serum protein electrophoresis. Serum immunofixation electrophoresis is negative for monoclonal immunoglobulins. Reviewed by Sonia Chin, Ph.D. 08/31/2024 1:56 PM CDT [facility] A/G RATIO, SERUM 0.6 09/01/19 1:56 PM CDT [facility] Blood Venipuncture / Unknown 08/29/2024 10:54 AM CDT 08/29/2024 10:54 AM CDT Narrative [facility] - 08/31/2024 1:56 PM CDT Reviewed by Madelyn Rodriguez M.D. [facility] Alea Barber MD CHEMISTRY ORDERABLES Fin al Result [facility] [address] [place] [address], * (ABNORMAL) FERRITIN (08/29/2024 10:54 AM CDT) FERRITIN 354(H) 22 - 274 ng/mL 08/29/2024 11:48 AM CDT [facility] Blood Venipuncture / Unknown 08/29/2024 10:54 AM CDT 08/29/2024 10:54 AM CDT us Jose Barber MD CHEMISTRY ORDERABLES Fin al Result [facility] [address] [place] [address] * (ABNORMAL) CMP (COMPREHENSIVE METABOLIC PANEL) (08/29/2024 10:54 AM CDT) SODIUM 141 136 - 145 mmol/L 08/29/2024 11:26 AM CDT [facility] POTASSIUM 4.1 3.5 - 5.1 mmol/L 08/29/2024 11:26 AM CDT [facility] CHLORIDE 105 98 - 107 mmol/L 08/29/2024 11:26 AM CDT [facility] CO2, VENOUS 28 22 - 30 mmol/L 08/29/2024 11:26 AM CDT [facility] ANION GAP 12.1 <18.0 mmol/L 08/29/2024 11:26 AM CDT [facility] GLUCOSE 103(H) 70 - 99 mg/dL 08/29/2024 11:26 AM CDT [facility] BUN 9 9 - 21 mg/dL 08/29/2024 11:26 AM CDT [facility] CREATININE, BLOOD 0.64(L) 0.70 - 1.30 mg/dL 08/29/2024 11:26 AM CDT [facility] BUN/CREATININE RATIO 14 12 - 20 ratio 08/29/2024 11:26 AM CDT [facility] TOTAL PROTEIN 8.6(H) 6.0 - 8.0 g/dL 08/29/2024 11:26 AM CDT [facility] ALBUMIN 3.6 3.5 - 5.0 g/dL 08/29/2024 11:26 AM CDT [facility] A/G RATIO 0.7(L) 1.0 - 2.2 08/29/2024 11:26 AM CDT [facility] CALCIUM 9.4 8.7 - 10.5 mg/dL 08/29/2024 11:26 AM CDT [facility] T BILI 0.2 0.2 - 1.2 mg/dL 08/29/2024 11:26 AM CDT [facility] SGOT (AST) 15 <43 U/L 08/29/2024 11:26 AM CDT [facility] SGPT (ALT) 12 <56 U/L 08/29/2024 11:26 AM CDT [facility] ALKALINE PHOSPHATASE 69 40 - 150 U/L 08/29/2024 11:26 AM CDT [facility] IS THE PATIENT REQUIRED TO BE FASTING? No 08/29/2024 11:26 AM CDT [facility] GFR, ESTIMATED >60 >=60 08/29/2024 11:26 AM CDT [facility] Comment: Creatinine Clearance is the preferred criteria for selecting drug dose adjustments in renally impaired patients. The GFR is provided as additional pertinent clinical information. GFR is reported in mL/min/1.73 sq m. Calculation based on the Chronic Kidney Disease Epidemiology Collaboration (CKD- EPI) equation refit without adjustment for race. GFR, EST. >60 >=60 025 11:26 AM CDT [facility] GFR, EST. NONAFRICAN >60 >=60 08/29/2024 11:26 AM CDT [facility] Blood Venipuncture / Unknown 08/29/2024 10:54 AM CDT 08/29/2024 10:54 AM CDT us Jose Barber MD CHEMISTRY ORDERABLES Fin al Result [facility] [address] [place] [address] * GENOVEVA SCREEN MULTIPLEX W/REFLEX PHILLIP (08/29/2024 10:54 AM CDT) GENOVEVA SCR MULTIPLEX Negative Negative, See comment 08/30/2024 12:40 AM CDT [facility] Blood Venipuncture / Unknown 08/29/2024 10:54 AM CDT 08/29/2024 10:54 AM CDT Narrative [facility] - 08/30/2024 12:40 AM CDT Antibody testing was performed by multiplex flow immunoassay on the [employer] platform. us Jose Barber MD IMMUNOLOGY ORDERABLES Fi nal Result [facility] [address] [place] [address], * FAMILY MEDICINE CONSULT (08/18/2024 12:00 AM CDT) 08/18/2024 us Provider Scan GENERIC SCAN ORDERS CONSULT Roxann l Result SCAN * XR - LOWER EXTREMITY (08/16/2024 12:00 AM CDT) 08/16/2024 us Provider Scan IMG DIAGNOSTIC ORDERABLES Final Result SCAN from Last 3 Months Insurance MEDICAID [employer]ET[employer] [facility] Care Teams Mig Tig Welder Relationship Specialty Start Date End Date Vania Herrera, JACQUELINE, SCROLL SHEAR OPERATOR [address] [place] [address] PCP - General Advanced Practice Nurse 08/29/24
--- OUTSIDE RECORDS SUMMARY | 2024-10-20 16:11 | XMS_ITS | Encounter Summary ---
Author Organization [facility] Address [address] [place] [address] Phone Care Team Providers Care Scale Reclamation Tender Name Role Phone Vania Herrera BARRIE PHILLIPS Primary Care Provider + Reason for Visit * Reason Onset Date Comments Prior Authorization 10/10/2024 Encounter Details Date Type Department Care Team (Late st Contact Info) Description 10/10/2024 Telephone [facility] Outpatient [address] [place] [address] Jose Barber MD [address] [place] [address] Prior Authorization Social History Tobacco Use Types Packs/Day Years Used Date Smoking Tobacco: Every Day Cigarettes 0.3 25.1 Started: 08/30/1999 Smokeless Tobacco: Never Alcohol Use Standard Drinks/Week Comments Not Currently 0 (1 standard drink = 0.6 oz pure alcohol) Stopped prior to completing rehab in Jun 2024 Sex and Gender Information Value Date Recorded Sex Assigned at Not on file Legal Sex Male 4:52 PM CDT Gender Identity Not on file Sexual Orientation Not on file documented as of this encounter Miscellaneous Notes * Telephone Encounter - Mely Robledo LPN - 10/10/2024 4:59 PM CDT Spoke with Sidra Dael Peer to peer scheduled for Wednesday10/11/24 at 8:[address] Juno Garland. Gave Sidra Dr. Barber's cell phone and Dr. Barber made aware. * Telephone Encounter - Elvia Goldstein RN - 10/10/2024 3:14 PM CDT Spoke to Timmy from [facility] on follow up for requested Peer to Peer. Per Dr Barber she will review chart and attempt a Peer to Peer if she can provide additional details. * Telephone Encounter - Ingrid De León - 10/10/2024 8:39 AM CDT Auth Denied-P2P offered Ordering Provider: Internal Appointment Info: Clinic: [facility] Provider: SAHCHRISTOPHER Appt Date/Time: Friday October 11, 2024 12:00 PM Payor + Plan[facility] CPT/Test: [address] Authorization denied through: [employer] Phone number called: website Reference number / chemical sales representative's name and time of call: [id number] Estimated Amount [Full Charges]: 88341.00 Reason for denial: Imaging (Positron Emissions Tomography) is indicated to check a single growth (nodule) greater than 0.8 cm (centimeters) and not larger than four cm only. Your records show that this does not apply to you. [facility] does not cover this study for screening of cancer. This finding was based on review of [facility] Clinical Policy Bulletin (CPB) Number 0071: Positron Emission Tomography (PET). Add'l Steps Taken (Pt Notified, Reached out to Provider, etc.): sent t/e to provider and rubber turner Peer to Peer review offered by Payer: Yes Peer to Peer review expires: 10/20/2024 Case #: [id number] Phone #: [phone] Ordering Provider: Jose Barber MD Phys. Notified? Yes Note for ordering office: If patient wishes to cancel the appointment, please complete cancellationprocess from the patient's appointment desk. Notification Made to Patient: yes documented in this encounter Plan of Treatment Upcoming Encounters Date Type Department Care Team (Late st Contact Info) Description 10/30/2024 11:20 AM CDT Lab [facility] [address] [place] [address] Jose Barber MD [address] [place] [address] Discharge Disposition: Discharged to home or Selfcare 10/30/2024 11:40 AM CDT Office Visit [facility] [address] [place] [address] Jose Barber MD [address] [place] [address] Discharge Disposition: Discharged to home or Selfcare documented as of this encounter Visit Diagnoses Not on filedocumented in this encounter Care Teams Scale Reclamation Tender Relationship Specialty Start Date End Date Vania Herrera APRN, BARRIE [address] [place] [address] PCP - General Advanced Practice Nurse 08/29/24 documented as of this encounter
[2024-10-20 16:24] LABS: Add Urine Microscopic? NO; Appearance Urine Clear (Clear); Bilirubin Urine Negative (Negative); Blood Urine Negative (Negative); Color Urine Light Yellow (Yellow); Glucose Urine UA Negative (Negative); Ketones Urine Negative (Negative); Leukocyte Esterase Ur Negative LEU/UL (Negative); Nitrate Urine Negative (Negative); Protein Urine Negative (Negative); Urobilinogen Urine 0.2 mg/dL (0.2-1.0)
== END 2024-10-20 16:08 | disposition home or self-care (01) ==
LOC: CHSLAB 16:09
PROVIDERS: PCP Nurse Practitioner Family; Visit Provider Nurse Practitioner Family
DX: R32 Unspecified urinary incontinence (principal)
CPT/HCPCS: 81003

== ENCOUNTER 2024-10-27 11:29 | Emergency (ER) | payer OTHER, SELFPAY ==
--- OUTSIDE RECORDS SUMMARY | 2024-10-27 11:32 | XMS_ITS | Clinical Summary ---
Author Organization [facility] Address [address] [place] [address] Phone Care Team Providers Care Inventory Checker Name Role Phone HerreraVania APRN, [employer] Primary Care Provider + Allergies No known [...] - 10/11/2024 11:59 PM CDT Hospital Encounter [facility] PET [address] [place] [address] Jose Barber MD Discharge Disposition: Discharged to home or Selfcare 10/11/2024 Travel 10/10/2024 Telephone [facility] Outpatient [address] [place] [address] Jose Barber MD Prior Authorization 09/29/2024 11:20 AM CDT Office Visit [facility] Oncology Services [address] [place] [address] Jose Barber MD Pain in joints of both feet (Primary Dx); Ankylosing spondylitis of multiple sites in spine (HCC); Lymphadenopathy, axillary; Neck mass; Lung nodules; Iron deficiency anemia due to sideropenic dysphagia Discharge Disposition: Discharged to home or Selfcare 09/29/2024 Travel 09/28/2024 7:21 AM CDT - 09/28/2024 11:59 PM CDT Hospital Encounter [facility] Radiology Resources [address] [place] [address] Provider, Not On File Discharge Disposition: Discharged to home or Selfcare 09/27/2024 Travel 09/25/2024 12:42 PM CDT - 09/25/2024 11:59 PM CDT Hospital Encounter [facility] Nuclear Medicine [address] [place] [address] Jose Barber MD Discharge Disposition: Discharged to home or Selfcare 09/25/2024 9:13 AM CDT - 09/25/2024 12:41 PM CDT Hospital Encounter [facility] Nuclear Medicine [address] [place] [address] Jose Barber MD Discharge Disposition: Discharged to home or Selfcare 09/24/2024 Travel 09/21/2024 1:02 PM CDT - 09/21/2024 11:59 PM CDT Hospital Encounter [facility] CT [address] [place] [address] Jose Barber MD Discharge Disposition: Discharged to home or Selfcare 09/21/2024 1:02 PM CDT - 09/21/2024 11:59 PM CDT Hospital Encounter [facility] CT [address] [place] [address] Jose Barber MD Discharge Disposition: Discharged to home or Selfcare 09/21/2024 Travel 08/29/2024 10:00 AM CDT Lab [facility] Oncology Services [address] [place] [address] Jose Barber MD Pain in joints of both feet; Bone lesion; Neck mass; Primary hypertension; Iron deficiency anemia, unspecified iron deficiency anemia type Discharge Disposition: Discharged to home or Selfcare 08/29/2024 9:20 AM CDT Office Visit [facility] Oncology Services [address] [place] [address] Jose Barber MD Pain in joints of [...] Date Smoking Tobacco: Every Day Cigarettes 0.3 25.2 Started: 08/30/1999 Smokeless Tobacco: Never Tobacco Cessation:Ready [...] Info) Description 10/30/2024 11:20 AM CDT [facility] [address] [place] [address] Jose Barber MD [address] [place] [address] Discharge Disposition: Discharged to home or Selfcare 10/30/2024 11:40 AM CDT Office Visit [facility] Oncology Services [address] [place] [address] Jose Barber MD [address] [place] [address] Discharge Disposition: Discharged to home or Selfcare Health Maintenance Due Date Last Done Comments Hepatitis C Virus (HCV) Screening 1981 TdaP Immunization 1981 Human Papillomavirus (HPV) Immunization (1 - Male 3-dose series) 1996 Hepatitis B Immunization (1 of 3 - 19+ 3-dose series) 2000 Pneumococcal Immunization Combined (1 of 2 - PCV) 2000 SARS-COV-2 Immunization (4 - season) 2024 06/13/2021, 11/11/2020, 10/21/2020 Influenza Immunization (Seas on Ended) 2025 02/23/2023 Respiratory Syncytial Virus (RSV) Immunization (Adult) (1 - 1-dose 75+ series) 2056 Meningococcal Immunization (ACWY) Aged Out No longer [...] Lamont Kelly M.D. LB: LAKSHMI Report ID: [id number] Reading Location: [id number] Procedure Note Lamont Kelly MD - 10/13/2024 [...] Lamont Kelly M.D. LB: LAKSHMI Report ID: [id number] Reading Location: [id number] IMPRESSION: No abnormal FDG uptake within the [...] recommended. Trace pleural effusions. Jose Barber MD IM PET Final Re sult * CT REFERENCE IMAGES FOR IMAGE IMPORT (09/28/2024 7:22 AM CDT) us Not On File Provider [facility] ORDERABLES Final Res ult * NM [...] Narrative 09/25/2024 3:15 PM CDT EXAM DESCRIPTION: MO BONE SCAN WHOLE BODY RADIOPHARMACEUTICAL: 25.8 mCi [...] Lamont Kelly M.D. LB: LAKSHMI Report ID: [id number] Reading Location: [id number] Procedure Note Lamont Kelly MD - 09/25/2024 EXAM DESCRIPTION: MO BONE SCAN WHOLE BODY RADIOPHARMACEUTICAL: 25.8 mCi [...] Lamont Kelly M.D. LB: LB Report ID: [id number] Reading Location: [id number] IMPRESSION: 1. No suspicious focal areas of uptake are seen to suggest osteoblastic metastatic disease. 2. Degenerative type uptake within the shoulders and hips bilaterally. 3. Scattered areas of uptake within the left foot in a pattern most typical of degenerative change but is asymmetric when compared to the right foot. [facility] ORDERABLES Final Result * CT CHEST ABDOMEN [...] Pablo Salter M.D. KR: MEJIA Report ID: [id number] Reading Location: [place] [address] Procedure Note Pablo Salter MD - 09/26/2024 [...] Pablo Salter M.D. KR: MEJIA Report ID: [id number] Reading Location: [id number] IMPRESSION: 1. Relatively symmetric mixed lytic and sclerotic osseous changes about the bilateral sacroiliac joints, consistent with spondyloarthropathy. 2. Indeterminate circumscribed subcutaneous fluid collections within the chest and neck, the largest measuring 5.1 cm in the left posterolateral neck. 3. Mild axillary, external iliac, inguinal lymphadenopathy. 4. Trace bilateral pleural effusions. [facility] Alea Barber MD IM CT ORDERABLES Final Result * CT SOFT [...] Andrew Nicole D.O. AP: AP Report ID: [id number] Reading Location: [place] [address] Procedure Note Andrew Nicole DO - 09/21/2024 [...] Andrew Nicole D.O. AP: AP Report ID: [id number] Reading Location: [place] [address] IMPRESSION: 1. Fluid density partially exophytic masses [...] DETECTED NON DETECTED 08/29/2024 10:53 PM CDT [facility] Blood Venipuncture / Unknown 08/29/2024 10:54 AM CDT 08/29/2024 10:54 AM CDT Jose Barber MD LAB SEND OUTS Final Re sult [facility] [address] [place] [address], [place] * (ABNORMAL) IRON,TRANSFERN,CALC.TIBC,%SAT (08/29/2024 10:54 AM CDT) Pathologist [facility] IRON 12(L) 31 - 144 mcg/dL 08/29/2024 11:26 AM CDT [facility] TRANSFERRIN 192 174 - 364 mg/dL 08/29/2024 11:26 AM CDT [facility] TIBC, CALCULATED 240(L) 261 - 462 mcg/dL 08/29/2024 11:26 AM CDT [facility] % SATURATION * 5(L) 15 - 62 % 08/29/2024 11:26 AM CDT [facility] Blood Venipuncture / Unknown 08/29/2024 10:54 AM CDT 08/29/2024 10:54 AM CDT us Jose Barber MD CHEMISTRY ORDERABLES Fin al Result [facility] [address] [place] [address] * (ABNORMAL) CBC WITH AUTO DIFFERENTIAL (08/29/2024 10:54 AM CDT) [facility] WBC 14.66(H) 4.00 - 12.00 10(3)/mcL 08/29/2024 11:07 AM CDT [facility] RBC 4.04(L) 4.40 - 5.80 10(6)/mcL 08/29/2024 11:07 AM CDT [facility] HEMOGLOBIN (HGB) 10.8(L) 13.0 - 16.5 g/dL 08/29/2024 11:07 AM CDT [facility] HEMATOCRIT (HCT) 35.0(L) 38.0 - 50.0 % 08/29/2024 11:07 AM CDT [facility] MCV 86.6 82.0 - 96.0 fL 08/29/2024 11:07 AM CDT [facility] MCH 26.7 26.0 - 32.0 pg 08/29/2024 11:07 AM CDT [facility] MCHC 30.9(L) 31.0 - 36.0 g/dL 08/29/2024 11:07 AM CDT [facility] PLATELET COUNT 664(H) 140 - 440 10(3)/[facility] 08/29/2024 11:07 AM CDT [facility] RDW 16.1(H) 11.8 - 15.5 % 08/29/2024 11:07 AM CDT [facility] MPV 8.2 8.0 - 12.6 fL 08/29/2024 11:07 AM CDT [facility] NEUTROPHILS 61.8 40.0 - 68.0 % 08/29/2024 11:07 AM CDT [facility] LYMPHOCYTES 22.9 19.0 - 49.0 % 08/29/2024 11:07 AM CDT [facility] MONOCYTES 10.2 3.0 - 13.0 % 08/29/2024 11:07 AM CDT [facility] EOSINOPHILS 4.0 0.0 - 8.0 % 08/29/2024 11:07 AM CDT [facility] BASOPHILS 1.1(H) 0.0 - 1.0 % 08/29/2024 11:07 AM CDT [facility] ABSOLUTE NEUTROPHILS 9.06(H) 1.40 - 5.30 10(3)/[facility] 08/29/2024 11:07 AM CDT [facility] ABSOLUTE LYMPHOCYTES 3.36(H) 0.90 - 3.30 10(3)/[facility] 08/29/2024 11:07 AM CDT [facility] ABSOLUTE MONOCYTES 1.50(H) 0.10 - 0.90 10(3)/[facility] 08/29/2024 11:07 AM CDT [facility] ABSOLUTE EOSINOPHIL 0.58(H) 0.00 - 0.50 10(3)/[facility] 08/29/2024 11:07 AM CDT [facility] ABSOLUTE BASOPHILS 0.16(H) 0.00 - 0.10 10(3)/[facility] 08/29/2024 11:07 AM CDT [facility] NRBC PER 100 WBC 0 08/30/19 25 11:07 AM CDT [facility] Blood Venipuncture / Unknown 08/29/2024 10:54 AM CDT 08/29/2024 10:54 AM CDT Jose Barber MD HEMATOLOGY ORDERABLES Fi nal Result Performing Organization Address City/[facility]/ZIP Co de Phone Number [facility] [address] [place] [address] * (ABNORMAL) FREE KAPPA & LAMBDA LIGHT CHAINS SERUM (08/29/2024 10:54 AM CDT) Free [place] Lt Chn 54.74(H) 3.30 - 19.40 mg/L 08/30/2024 10:08 AM CDT [facility] Free Lambda Lt Chn 49.82(H) 5.71 - 26.30 mg/L 08/30/2024 10:08 AM CDT [facility] free brett perez ratio 1.10 0.26 - 1.65 08/30/2024 10:08 AM CDT [facility] Blood Venipuncture / Unknown 08/29/2024 10:54 AM CDT 08/29/2024 10:54 AM CDT Jose Barber MD CHEMISTRY ORDERABLES Fin al Result Performing Organization Address City/[facility]/ZIP Co de Phone Number [facility] [address] [place] [address], [place] * (ABNORMAL) ERYTHROCYTE SEDIMENTATION RATE (ESR) (08/29/2024 10:54 AM CDT) Pathologist [facility] ESR (SED RATE, ERYTHROCYTE SEDIMENTATION RATE) 64(H) <15 mm/h 08/29/2024 11:12 AM CDT [facility] Comment: Patients presenting with increased level of fibrinogen, gamma globulins, or abnormally shaped RBCs could affect the results for the erythrocyte sedimentation rate (ESR). Results should be clinically correlated. Blood Venipuncture / Unknown 08/29/2024 10:54 AM CDT 08/29/2024 10:54 AM CDT Jose Barber MD HEMATOLOGY ORDERABLES Fi nal Result Performing Organization Address City/[facility] Co de Phone Number [facility] [address] [place] [address] * RHEUMATOID FACTOR (RFQT) QUANT (08/29/2024 10:54 AM CDT) RHEUMATOID FACTOR QT <13 <30 IU/mL 08/29/2024 11:26 AM CDT [facility] Blood Venipuncture / Unknown 08/29/2024 10:54 AM CDT 08/29/2024 10:54 AM CDT Narrative [facility] - 08/29/2024 11:26 AM CDT RHEUMATOID [...] ORDERABLES Fin al Result Performing Organization Address City/[facility] Co de Phone Number [facility] [address] [place] [address] * PSA DIAGNOSTIC,TOTAL (08/29/2024 10:54 AM CDT) PSA, TOTAL (PROSTATIC SPECIFIC ANTIGEN) 1.20 <4.00 ng/mL 08/29/2024 11:44 AM CDT [facility] Blood Venipuncture / Unknown 08/29/2024 10:54 AM CDT 08/29/2024 10:54 AM CDT Narrative [facility] - 08/29/2024 11:44 AM CDT PSA NOTE: The PSA value should be used in conjunction with information available from clinical evaluation and other diagnostic procedures. The ALINITY Total PSA assay is a Chemiluminescent Microparticle Immunoassay (CMIA) for the quantitative determination of total PSA (both free PSA and PSA complexed to [id number]) in human serum. Total PSA values obtained with different assay methods, including García PSA assays, cannot be used interchangeably. us Jose Barber MD CHEMISTRY ORDERABLES Fin al Result [facility] [address] [place] [address] * (ABNORMAL) IMMUNOFIXATION W/ ELECTROPHORESIS SERUM (08/29/2024 10:54 AM CDT) TOTAL PROTEIN 8.2(H) 6.0 - 8.0 g/dL 08/31/2024 1:56 PM CDT [facility] % ALBUMIN 39.2(L) 55.8 - 66.7 % 08/31/2024 1:56 PM CDT [facility] ALBUMIN SERUM 3.2 2.5 - 5.4 g/dL 08/31/2024 1:56 PM CDT [facility] % ALPHA 1 GLOBULIN 6.4(H) 2.9 - 4.9 % 08/31/2024 1:56 PM CDT [facility] ALPHA 1 0.5(H) 0.2 - 0.4 g/dL 08/31/2024 1:56 PM CDT [facility] % ALPHA 2 GLOBULIN 13.1(H) 7.1 - 11.8 % 08/31/2024 1:56 PM CDT [facility] ALPHA 2 1.1(H) 0.5 - 1.0 g/dL 08/31/2024 1:56 PM CDT [facility] % BETA 21.9(H) 8.4 - 13.1 % 08/31/2024 1:56 PM CDT [facility] BETA-GLOBULIN 1.8(H) 0.5 - 1.1 g/dL 08/31/2024 1:56 PM CDT [facility] % GAMMA GLOBULIN 19.4(H) 11.1 - 18.8 % 08/31/2024 1:56 PM CDT [facility] GAMMA 1.6(H) 0.7 - 1.5 g/dL 08/31/2024 1:56 PM CDT [facility] IMMUNOGLOBULIN G 1,861(H) 540 - 1,822 mg/dL 08/31/2024 1:56 PM CDT [facility] IMMUNOGLOBULIN A 712(H) 63 - 484 mg/dL 08/31/2024 1:56 PM CDT [facility] IMMUNOGLOBULIN M 106 22 - 240 mg/dL 08/31/2024 1:56 PM CDT [facility] INTERPRETATION SERUM No abnormal protein band is detected by serum protein electrophoresis. Serum immunofixation electrophoresis is negative for monoclonal immunoglobulins. Reviewed by Sonia Chin, Ph.D. 08/31/2024 1:56 PM CDT [facility] A/G RATIO, SERUM 0.6 09/01/19 1:56 PM CDT [facility] Blood Venipuncture / Unknown 08/29/2024 10:54 AM CDT 08/29/2024 10:54 AM CDT Narrative [facility] - 08/31/2024 1:56 PM CDT Reviewed by Madelyn Rodriguez M.D. [facility] Alea Barber MD CHEMISTRY ORDERABLES Fin al Result [facility] [address] [place] [address], * (ABNORMAL) FERRITIN (08/29/2024 10:54 AM CDT) FERRITIN 354(H) 22 - 274 ng/mL 08/29/2024 11:48 AM CDT [facility] Blood Venipuncture / Unknown 08/29/2024 10:54 AM CDT 08/29/2024 10:54 AM CDT us Jose Barber MD CHEMISTRY ORDERABLES Fin al Result [facility] [address] [place] [address] * (ABNORMAL) CMP (COMPREHENSIVE METABOLIC PANEL) (08/29/2024 10:54 AM CDT) SODIUM 141 136 - 145 mmol/L 08/29/2024 11:26 AM CDT [facility] POTASSIUM 4.1 3.5 - 5.1 mmol/L 08/29/2024 11:26 AM CDT [facility] CHLORIDE 105 98 - 107 mmol/L 08/29/2024 11:26 AM CDT [facility] CO2, VENOUS 28 22 - 30 mmol/L 08/29/2024 11:26 AM CDT [facility] ANION GAP 12.1 <18.0 mmol/L 08/29/2024 11:26 AM CDT [facility] GLUCOSE 103(H) 70 - 99 mg/dL 08/29/2024 11:26 AM CDT [facility] BUN 9 9 - 21 mg/dL 08/29/2024 11:26 AM CDT [facility] CREATININE, BLOOD 0.64(L) 0.70 - 1.30 mg/dL 08/29/2024 11:26 AM CDT [facility] BUN/CREATININE RATIO 14 12 - 20 ratio 08/29/2024 11:26 AM CDT [facility] TOTAL PROTEIN 8.6(H) 6.0 - 8.0 g/dL 08/29/2024 11:26 AM CDT [facility] ALBUMIN 3.6 3.5 - 5.0 g/dL 08/29/2024 11:26 AM CDT [facility] A/G RATIO 0.7(L) 1.0 - 2.2 08/29/2024 11:26 AM CDT [facility] CALCIUM 9.4 8.7 - 10.5 mg/dL 08/29/2024 11:26 AM CDT [facility] T BILI 0.2 0.2 - 1.2 mg/dL 08/29/2024 11:26 AM CDT [facility] SGOT (AST) 15 <43 U/L 08/29/2024 11:26 AM CDT [facility] SGPT (ALT) 12 <56 U/L 08/29/2024 11:26 AM CDT [facility] ALKALINE PHOSPHATASE 69 40 - 150 U/L 08/29/2024 11:26 AM CDT [facility] IS THE PATIENT REQUIRED TO BE FASTING? No 08/29/2024 11:26 AM CDT [facility] GFR, ESTIMATED >60 >=60 08/29/2024 11:26 AM CDT [facility] Comment: Creatinine Clearance is the preferred criteria for selecting drug dose adjustments in renally impaired patients. The GFR is provided as additional pertinent clinical information. GFR is reported in mL/min/1.73 sq m. Calculation based on the Chronic Kidney Disease Epidemiology Collaboration (CKD- EPI) equation refit without adjustment for race. GFR, EST. >60 >=60 025 11:26 AM CDT [facility] GFR, EST. NONAFRICAN >60 >=60 08/29/2024 11:26 AM CDT [facility] Blood Venipuncture / Unknown 08/29/2024 10:54 AM CDT 08/29/2024 10:54 AM CDT us Jose Barber MD CHEMISTRY ORDERABLES Fin al Result [facility] [address] [place] [address] * GENOVEVA SCREEN MULTIPLEX W/REFLEX PHILLIP (08/29/2024 10:54 AM CDT) GENOVEVA SCR MULTIPLEX Negative Negative, See comment 08/30/2024 12:40 AM CDT [facility] Blood Venipuncture / Unknown 08/29/2024 10:54 AM CDT 08/29/2024 10:54 AM CDT Narrative [facility] - 08/30/2024 12:40 AM CDT Antibody testing was performed by multiplex flow immunoassay on the [employer] platform. us Jose Barber MD IMMUNOLOGY ORDERABLES Fi nal Result [facility] [address] [place] [address], * FAMILY MEDICINE CONSULT (08/18/2024 12:00 AM CDT) 08/18/2024 us Provider Scan GENERIC SCAN ORDERS CONSULT Roxann l Result SCAN * XR - LOWER EXTREMITY (08/16/2024 12:00 AM CDT) 08/16/2024 Provider Scan IMG DIAGNOSTIC ORDERABLES Final Result SCAN from Last 3 Months Insurance MEDICAID [employer] [facility] Care Teams Inventory Checker Relationship Specialty Start Date End Date Vania Herrera APRN, [employer] [address] [place] [address] PCP - General Advanced Practice Nurse 08/29/24
--- OUTSIDE RECORDS SUMMARY | 2024-10-27 11:32 | XMS_ITS | Encounter Summary ---
Author Organization [facility] Address [address] [place] [address] Phone Care Team Providers Care Grubber Name Role Phone Vania Herrera BARRIE PHILLIPS Primary Care Provider + Reason for Visit * Reason Onset Date Comments Prior Authorization 10/10/2024 Encounter Details Date Type Department Care Team (Late st Contact Info) Description 10/10/2024 Telephone [facility] Outpatient [address] [place] [address] Jose Barber MD [address] [place] [address] Prior Authorization Social History Tobacco Use Types Packs/Day Years Used Date Smoking Tobacco: Every Day Cigarettes 0.3 25.2 Started: 08/30/1999 Smokeless Tobacco: Never Alcohol Use [...] 10/10/2024 4:59 PM CDT Spoke with Sidra Mascorro to peer scheduled for Wednesday10/11/24 at 8:[address] Juno Garland. Gave Sidra Dr. Barber's cell phone and Dr. Barber made aware. * Telephone Encounter - Elvia Goldstein RN - 10/10/2024 3:14 PM CDT Spoke to Timmy from [facility] on follow up for requested Peer to Peer. Per Dr Barber she will review chart and attempt a Peer to Peer if she can provide additional details. * Telephone Encounter - Ingrid De León - 10/10/2024 8:39 AM CDT Auth Denied-P2P offered Ordering Provider: Internal Appointment Info: Clinic: [facility] PET Clinic Provider: SAHCHRISTOPHER Appt Date/Time: Friday October 11, 2024 12:00 PM Payor + Plan: MEDICAID [facility] MEDICAID CPT/Test: [address] Authorization denied through: [employer] Phone number called: website Reference number / chain sales representative's name and time of call: [phone] Estimated Amount [Full Charges]: 52673.00 Reason for denial: Imaging (Positron Emissions Tomography) is indicated to check a single growth (nodule) greater than 0.8 cm (centimeters) and not larger than four cm only. Your records show that this does not apply to you. [facility] does not cover this study for screening of cancer. This finding was based [facility] Clinical Policy Bulletin (CPB) Number 0071: Positron Emission Tomography (PET). Add'l Steps Taken (Pt Notified, Reached out to Provider, etc.): sent t/e to provider and cattle dehorner Peer to Peer review offered by Payer: Yes Peer to Peer review expires: 10/20/2024 Case #: [id number] Phone #: [phone] Ordering Provider: Jose Barber MD Phys. Notified? Yes Note for ordering office: If patient wishes to cancel the appointment, please complete cancellationprocess from the patient's appointment desk. Notification Made to Patient: yes documented in this encounter Plan of Treatment Upcoming Encounters Date Type Department Care Team (Late st Contact Info) Description 10/30/2024 11:20 AM CDT Lab [facility] Oncology Services [address] [place] [address] Jose Barber MD [address] [place] [address] Discharge Disposition: Discharged to home or Selfcare 10/30/2024 11:40 AM CDT Office Visit [facility] Oncology Services [address] [place] [address] Jose Barber MD [address] [place] [address] Discharge Disposition: Discharged to home or Selfcare documented as of this encounter Visit Diagnoses Not on filedocumented in this encounter Care Teams Grubber Relationship Specialty Start Date End Date Vania Herrera APRN, BARRIE [address] [place] [address] PCP - General Advanced Practice Nurse 08/29/24 documented as of this encounter
[2024-10-27 11:34] VITALS: BP 111/76; PULSE 84; RESP 18; TEMP 36.6; O2SAT 99
--- NOTE | 2024-10-27 12:57 | ED_ITS ---
HPI - General Adult General Chief complaint: Allergic Reaction Stated complaint: reaction to new med, (Risperidone) Time Seen by Provider: 10/27/24 11:39 History of Present Illness HPI narrative: 44-year-old male presents emergency department for evaluation for increased anxiety which he suspects secondary to his risperidone dose. Patient had been on 2 mg of started own and this was increased to 4 mg. Patient began having increased anxiety issues and he recently decreased down to 3 mg but is still having anxiety. Patient did take a Xanax at home prior to arrival, this is not his prescription. Time of evaluation patient did not appear to be highly anxious or distressed. Related Data Allergies Allergy/AdvReac Type Severity Reaction Status Date / Time No Known Allergies Allergy Verified 10/20/24 16:58 Review of Systems Review of Systems: All systems reviewed & are unremarkable except as noted in HPI and below PMFSH Past Medical History Medical History Chronic pain Alcohol abuse Cigarette nicotine dependence Skin abscess Surgical History Surgical History History of skin graft Family History Family History Father Carcinoma of colon Heart disease Mother Cancer Other Acute myocardial infarction Social History Social History Social History: Surrogate medical decision maker: Rachana Auguste. Code status: Full code. Smoking packs per day: 0.5 Smoking cigarettes per day: 10.0 Years smoked: 28 Smoking pack-years: 14.00 Smoking status: Former smoker Tobacco type: cigarettes Additional smoking assessment comments: stopped recently Alcohol intake: former Alcohol use details: reports prior to 05/19/24 was drinking hard liquor constantly. Has since stopped. Substance use: never Substance use type: does not use Do You Feel Safe in your Home?: Yes Lack of Transportation: YES Lack of Food: Never True Current Housing: I Have Housing Concerned About Future Housing: No Difficulty Paying Gas/Electric Bills: YES Difficulty Paying for Meds: YES Currently Unemployed: YES Education: High School Diploma/GED Difficulty w/ Childcare or Family Care: No Spiritual care concerns: No Exam Narrative: APPEARANCE: Well appearing, no pain, no distress, well-nourished. HEAD: normocephalic, atraumatic. EYES: PERRLA/EOMI, conjunctivae clear. NOSE: Normal no drainage EARS:TMS clear with good light reflex. THROAT: Pharynx clear, no exudate. NECK: Supple. No adenopathy, no masses. RESPIRATORY: Airway patent, respirations nonlabored. Clear to auscultation jody aterally, no rales, rhonchi, wheezing. CARDIOVASCULAR: Regular rate and rhythm without murmurs rubs or gallops. ABDOMINAL: Soft, nontender, nondistended, normal bowel sounds MUSCULOSKELETAL: Moves all extremities. Strength/ROM intact, No edema, No calf tenderness. NEURO: Alert. Cranial nerves II through XII intact. Good gait. Good coordination SKIN: Warm, dry. Normal Color PSYCHIATRIC: Normal affect/mood. Course Vital Signs Vital signs: Vital Signs Temperature 97.8 F 10/27/24 11:34 Pulse Rate 84 10/27/24 11:34 Respiratory Rate 18 10/27/24 11:34 Blood Pressure 111/76 10/27/24 11:34 Pulse Oximetry 99 10/27/24 11:34 Oxygen Delivery Room Air 10/27/24 11:34 Temperature 97.8 F 10/27/24 11:34 Pulse Rate 84 10/27/24 11:34 Respiratory Rate 18 10/27/24 11:34 Blood Pressure 111/76 10/27/24 11:34 Pulse Oximetry 99 10/27/24 11:34 Oxygen Delivery Room Air 10/27/24 11:40 Medical Decision Making [facility] Narrative Medical decision making narrative: 44-year-old male present to the emergency department for evaluation for increased anxiety secondary to Risperdal dose changes. Patient had initially been on 2 mg but was increased to 4 mg but began having increased anxiety, patient was decreased down to 3 mg Risperdal but is still having some intermittent anxiety. Patient did self medicate with some Xanax and did feel improved. Patient was advised to decrease back down to 2 mg and is being provided a short course of Ativan for p.r.n. anxiety. Patient was encouraged close follow-up with primary care physician. Vital Signs Vital Signs: Vital Signs Temperature 97.8 F 10/27/24 11:34 Pulse Rate 84 10/27/24 11:34 Respiratory Rate 18 06/13/25 11:34 Blood Pressure 111/76 10/27/24 11:34 Pulse Oximetry 99 10/27/24 11:34 Oxygen Delivery Room Air 10/27/24 11:34 Temperature 97.8 F 10/27/24 11:34 Pulse Rate 84 10/27/24 11:34 Respiratory Rate 18 10/27/24 11:34 Blood Pressure 111/76 10/27/24 11:34 Pulse Oximetry 99 10/27/24 11:34 Oxygen Delivery Room Air 10/27/24 11:40 Discharge Plan Discharge Clinical Impression: Medication adverse effect Patient Disposition: Home Condition: Stable Instructions: Antibiotic Form Additional Instructions: Decrease your risperidone dose to 2 mg. Ativan as needed intermittently for anxiety. Have close follow-up with your primary care physician. Patient Language: Upper Sorbian Prescriptions: New lorazepam [Ativan] 0.5 mg tablet 0.5 mg PO BID PRN (Reason: anxiety) Qty: 14 0RF No Action meclizine 12.5 mg tablet 12.5 mg PO BID PRN (Reason: dizziness) Qty: 30 0RF ondansetron 4 mg tablet,disintegrating 4 mg PO BID PRN (Reason: nausea and vomiting) Qty: 14 0RF bupropion HCl [Wellbutrin XL] 300 mg tablet extended release 24 hr 300 mg PO QAM Qty: 30 2RF quetiapine 100 mg tablet 100 mg PO HS PRN (Reason: sleep) Qty: 30 1RF amlodipine 5 mg tablet 5 mg PO DAILY Qty: 90 1RF buspirone 7.5 mg tablet 7.5 mg PO BID 30 Days Qty: 60 1RF hydroxyzine pamoate 50 mg capsule 100 mg PO TID PRN (Reason: anxiety) Qty: 30 2RF trazodone 100 mg tablet 100 mg PO HS PRN (Reason: sleep) Qty: 90 0RF Vivitrol 380 mg suspension,extended rel recon 380 mg IM MONTHLY Qty: 1 2RF gabapentin 600 mg tablet 600 mg PO DAILY PRN (Reason: pain) Qty: 30 2RF ibuprofen 800 mg tablet See Rx Instructions .ROUTE .COMPLEX Qty: 90 1RF Dose Instruction: TAKE 1 TABLET BY MOUTH THREE TIMES A DAY NEEDED FOR PAIN Rx Instructions: TAKE 1 TABLET BY MOUTH THREE TIMES A DAY NEEDED FOR PAIN baclofen 20 mg tablet See Rx Instructions .ROUTE .COMPLEX Qty: 60 2RF Dose Instruction: TAKE ONE TABLET BY MOUTH TWICE A DAY NEEDED FOR JOINT PAIN Rx Instructions: TAKE ONE TABLET BY MOUTH TWICE A DAY NEEDED FOR JOINT PAIN Follow-up/Referrals: Vania Herrera APRN [Primary Care Provider] -
== END 2024-10-27 13:07 | disposition home or self-care (01) ==
PROVIDERS: Emergency Provider Emergency Medicine; PCP Nurse Practitioner Family
DX: F41.9 Anxiety disorder, unspecified (principal); T43.595A Adverse effect of other antipsychotics and neuroleptics, initial encounter; Z87.891 Personal history of nicotine dependence
CPT/HCPCS: 99283

== ENCOUNTER 2024-11-10 07:28 | Outpatient (CLI) | payer OTHER, SELFPAY ==
--- NOTE | ~2024-11-10 | US_ITS ---
EXAM: RENAL ULTRASOUND HISTORY: R32 - Unspecified urinary incontinence COMPARISON: None FINDINGS: RIGHT KIDNEY: 13.3 x 5.0 x 4.1 cm. The parenchyma of the right kidney is unremarkable in echogenicity and cortical thickness. No hydronephrosis or renal calculi. LEFT KIDNEY: 13.1 x 4.3 x 4.6 cm No hydronephrosis or renal calculi. The parenchyma of the left kidney is unremarkable in echogenicity and cortical thickness. BLADDER: Prevoid volume of the bladder measures 63 mL. Post void residual measures 12.8 mL. IMPRESSION: No hydronephrosis or renal calculi. Post void residual of 12.8 mL Reviewed, dictated and finalized at location A.
[2024-11-10 07:54] LABS: Basophils Absolute Auto 0.05 K/mm3 (0.00-0.10); Basophils Percent Auto 0.4 % (0.0-1.0); Eosinophils Absolute Auto 0.25 K/mm3 (0.02-0.50); Eosinophils Percent Auto 2.1 % (1.0-6.0); Hematocrit 33.3 % (40.0-54.0); Hemoglobin 10.4 g/dL (14.0-18.0); Immature Granulocyte Absolute 0.05 K/mm3 (0.00-0.00); Immature Granulocyte Percent A 0.4 % (0.0-0.0); Lymphocytes Absolute Auto 2.59 K/mm3 (1.10-4.50); Lymphocytes Percent Auto 21.8 % (18.0-42.0); Mean Corpuscular HGB Conc 31.2 g/dL (32-36); Mean Corpuscular Hemoglobin 24.9 pg (27.0-31.0); Mean Corpuscular Volume 79.7 fL (78.0-102.0); Mean Platelet Volume 8.2 fl (8.7-11.0); Monocytes Absolute Auto 1.14 K/mm3 (0.10-0.90); Monocytes Percent Auto 9.6 % (2.0-11.0); Neutrophils Absolute Auto 7.79 K/mm3 (1.70-7.20); Neutrophils Percent Auto 65.7 % (50.0-70.0); Platelet Count Result 427 K/mm3 (150-420); Red Blood Count 4.18 M/mm3 (4.70-6.10); Red Cell Distribution Width 17.2 % (11.6-14.4); White Blood Count 11.9 K/mm3 (4.8-10.8)
[2024-11-10 08:23] LABS: Iron 29 ug/dL (49-181)
[2024-11-10 08:33] LABS: Percent Iron Saturation 12 % (20-50)
[2024-11-10 08:56] LABS: Prostate Specific Antigen 0.8 ng/mL (< OR = 4.0)
== END 2024-11-10 07:29 | disposition home or self-care (01) ==
LOC: CHSIMG 07:29
PROVIDERS: PCP Nurse Practitioner Family; Visit Provider Nurse Practitioner Family
DX: D50.9 Iron deficiency anemia, unspecified (principal); R32 Unspecified urinary incontinence
CPT/HCPCS: 36415; 76770; 83540; 83550; 84153; 85025

== ENCOUNTER 2024-11-29 07:53 | Outpatient (CLI) | payer OTHER, SELFPAY ==
--- OUTSIDE RECORDS SUMMARY | 2024-11-29 07:57 | XMS_ITS | Clinical Summary ---
Author Organization [facility] Address [address] [place] [address] Phone Care Team Providers Care Media Monitor Name Role Phone Vania Herrera APRN, LIEUTENANT SHIFT SUPERVISOR Primary Care Provider + Sonja Muñiz MD Unavailable [phone] Allergies No known active allergies Medications baclofen (LIORESAL) 20 MG Tablet 3 times daily. 5 Active buPROPion (WELLBUTRIN) 300 MG TABLET SR 24 HR XL tablet Take 300 mg by mouth every morning. 5 Active ibuprofen (MOTRIN) 800 MG Tablet 800 mg. 5 Active amLODIPine (NORVASC) 5 MG Tablet Take 5 mg by mouth daily. 5 Active gabapentin (NEURONTIN) 600 MG Tablet Take 600 mg by mouth 3 times daily. 5 Active ferrous sulfate 325 (65 Fe) MG Tablet Take 1 Tablet by mouth daily. 30 Tablet 2 5 Active busPIRone HCl (BUSPAR) 30 MG Tablet Take 30 mg by mouth 2 times daily. 5 Active loratadine (CLARITIN) 10 MG Tablet Take 10 mg by mouth daily. Active Vivitrol 380 MG Recon Suspension 2 5 Active QUEtiapine (SEROquel) 100 MG Tablet 5 Active traZODone (DESYREL) 100 MG Tablet Take 100 mg by mouth nightly as needed for Sleep. 5 Active risperiDONE (risperDAL) 2 MG Tablet Take 2 mg by mouth 2 times daily. 5 Active oxybutynin (DITROPAN-XL) 5 MG TABLET SR 24 HR Take 5 mg by mouth daily. Active hydrOXYzine (VISTARIL) 50 MG Capsule 100 mg 3 times daily as needed. 5 11/16/19 25 Discontinu ed(Med List Clean Up) propranolol (INDERAL) 20 MG Tablet Take 20 mg by mouth 3 times daily. 5 11/16/19 25 Discontinu ed(Med List Clean Up) Ferrous Sulfate (Iron) 28 MG Tablet Take by mouth daily. 11/16/19 Discontinu ed(Med List Clean Up) risperidone 2 MG TABLET DISPERSIBLE Take 2 mg by mouth 2 times daily. 5 11/16/19 25 Discontinu ed(Med List Clean Up) LORazepam (ATIVAN) 0.5 MG Tablet Take 0.5 mg by mouth 2 times daily as needed for Anxiety. 5 11/16/19 25 Discontinu ed(Med List Clean Up) busPIRone HCl 7.5 MG Tablet Take 1 Tablet by mouth 2 times daily. 5 11/16/19 25 Discontinu ed(Med List Clean Up) naproxen sodium (ANAPROX) 220 MG Tablet Take 220 mg by mouth 2 times daily (with meals). 11/16/19 Discontinu ed(Med List Clean Up) risperiDONE (risperDAL) 1 MG Tablet Take 1 mg by mouth 2 times daily. 5 11/16/19 25 Discontinu ed(Med List Clean Up) risperiDONE (risperDAL) 3 MG Tablet Take 3 mg by mouth 2 times daily. 5 11/16/19 25 Discontinu ed(Med List Clean Up) risperiDONE (risperDAL) 4 MG Tablet Take 4 mg by mouth 2 times daily. 5 11/16/19 Discontinu ed(Med List Clean Up) Active Problems Problem Noted Date Diagnosed Date Cyst, dermoid, scalp and neck 10/30/2024 Ankylosing spondylitis of multiple sites in spin e 09/29/2024 Lung nodules 09/29/2024 Pain in joints of both feet 08/29/2024 Bone lesion 08/29/2024 Neck mass 08/29/2024 Primary hypertension 08/29/2024 Iron deficiency anemia 08/29/2024 Lymphadenopathy, axillary 08/29/2024 Encounters Date Type Department Care Team Description 11/23/2024 Results Follow-Up [facility] [address] [place] [phone] Shwetha Brennan APRN, LIEUTENANT SHIFT SUPERVISOR HEPATITIS C ANTIBODY 11/21/2024 Travel 11/15/2024 10:40 AM CDT Telemedicine [facility] [address] [place] [phone] Primary hypertension (Primary Dx); Need for hepatitis C screening test Discharge Disposition: Discharged to home or Selfcare 11/15/2024 Patient Outreach [facility] [address] [place] [phone] Emma Mehta, RN Patient Outreach (Patient is enrolled in the [facility] Remote Patient Monitoring Program. /) 11/13/2024 Travel 11/07/2024 Telephone [facility] [address] [place] [phone] Ric, [facility] Chronic Care Need Order 10/30/2024 11:40 AM CDT Office Visit [facility] [address] [place] [phone] Jose Barber MD Neck mass (Primary Dx); Cyst, dermoid, scalp and neck; Lymphadenopathy, axillary; Ankylosing spondylitis of multiple sites in spine (HCC); Iron deficiency anemia, unspecified iron deficiency anemia type Discharge Disposition: Discharged to home or Selfcare 10/30/2024 11:20 AM CDT [facility] [address] [place] [phone] Jose Barber MD Neck mass; Lung nodules; Iron deficiency anemia due to sideropenic dysphagia Discharge Disposition: Discharged to home or Selfcare 10/30/2024 Travel 10/11/2024 11:31 AM CDT - 10/11/2024 11:59 PM CDT [facility] [address] [place] [address] Jose Barber MD Discharge Disposition: Discharged to home or Selfcare 10/11/2024 Travel 10/10/2024 Telephone [facility] Outpatient [address] [place] [phone] Jose Barber MD Prior Authorization 09/29/2024 11:20 AM CDT [facility] [address] [place] [address] Jose Barber MD Pain in joints of both feet (Primary Dx); Ankylosing spondylitis of multiple sites in spine (HCC); Lymphadenopathy, axillary; Neck mass; Lung nodules; Iron deficiency anemia due to sideropenic dysphagia Discharge Disposition: Discharged to home or Selfcare 09/29/2024 Travel 09/28/2024 7:21 AM CDT - 09/28/2024 11:59 PM CDT [facility] [address] [place] [address] Provider, Not On File Discharge Disposition: Discharged to home or Selfcare 09/27/2024 Travel 09/25/2024 12:42 PM CDT - 09/25/2024 11:59 PM CDT Hospital [facility] Medicine [address] [place] [address] Jose Barber MD Discharge Disposition: Discharged to home or Selfcare 09/25/2024 9:13 AM CDT - 09/25/2024 12:41 PM CDT [facility] [address] [place] [address] Jose Barber MD Discharge Disposition: Discharged to home or Selfcare 09/24/2024 Travel 09/21/2024 1:02 PM CDT - 09/21/2024 11:59 PM CDT Hospital Encounter [facility] CT [address] [facility] [place] [place] [address] Jose Barber MD Discharge Disposition: Discharged to home or Selfcare 09/21/2024 1:02 PM CDT - 09/21/2024 11:59 PM CDT Hospital Encounter [facility] CT [address] [facility] [place] [address] Jose Barber MD Discharge Disposition: Discharged to home or Selfcare 09/21/2024 Travel from Last 3 Months Immunizations Immunization Administration Dates Next Due Covid-19, Mrna, Lnp-s, Pf, 3 0 Mcg/0.3 Ml Dose ([employer]) 06/13/2021,11/11/2020,10/21/2020 Influenza Vaccine, Quadrivalent, PF 02/23/2023 Family History Medical History Relation Name Comments Colon Cancer Father Cancer Maternal Aunt Cancer Maternal Grandmother Relation Name Status Comments Father Alive Maternal Aunt Maternal Grandmother Mother Alive Social History Tobacco Use Types Packs/Day Years Used Date Smoking Tobacco: Former Cigarettes 0.3 25.3 S tarted: 08/30/1999 Smokeless Tobacco: Never Tobacco Cessation:Counseling Given: Not Answered Comments:11/15/24-Quit smoking 2 weeks ago. Alcohol Use Standard Drinks/Week Comments Not Currently [...] Sign Reading Time Taken Comments Blood Pressure 115/78 10/30/2024 11:33 AM CDT Pulse 82 10/30/2024 11:33 AM CDT Temperature 37.2 C (98.9 F) 10/30/2024 11:33 AM CDT Respiratory Rate 20 10/30/2024 11:3 3 AM CDT Oxygen Saturation 99% 10/30/2024 11: 33 AM CDT Inhaled Oxygen Concentration - - Weight 51.1 kg (112 lb 11.2 oz) 025 11:33 AM CDT Height 167.6 cm (5' 6) 11/23/2024 9:20 AM CDT Body Mass Index 18.19 10/30/2024 11:33 AM CDT Plan of Treatment Upcoming Encounters Date Type Department Care Team (Late st Contact Info) Description 01/02/2025 8:30 AM CDT Lab [facility] [address] [place] [address] Jose Barber MD [address] [place] [address] Discharge Disposition: Discharged to home or Selfcare 01/02/2025 9:00 AM CDT Office Visit [facility] [address] [place] [phone] Jose Barber MD [address] [place] [address] Discharge Disposition: Discharged to home or Selfcare Health Maintenance Due Date Last Done Comments TdaP Immunization 1981 Human Papillomavirus (HPV) Immunization (1 - Male 3-dose series) 1996 Hepatitis B Immunization (1 of 3 - 19+ 3-dose series) 2000 SARS-COV-2 Immunization ( season) 2024 06/13/2021, 11/11/2020, 10/21/2020 Influenza Immunization (#1) 2025 02/23/2023 Respiratory Syncytial Virus (RSV) Immunization (Adult) (1 - 1-dose 75+ series) 2056 Hepatitis C Virus (HCV) Screening Completed 11/23/2024 Meningococcal Immunization (ACWY) Aged Out No longer eligible b ased on patient's age to complete this topic Pneumococcal Immunization Combined Aged Out No longer eligible b ased on patient's age to complete this topic Rotavirus Immunization Aged Out No lo nger eligible based on patient's age to complete this topic Goals Goal Patient Goal Type Associated Problems Recent Progress Patient-Stated? Author Chronic Disease Management Chronic Disease Management Emma Wray RN Note: To effectively check in with [facility] Remote Patient Monitoring Hypertension program via text on Wednesday and Wednesday at 2:30. pm. Procedures Procedure Name Priority Date/Time Associated Diagnosis Comments HEPATITIS C ANTIBODY Routine 11/23/2024 9:30 AM CDT Need for hepatitis C screening test CBC WITH AUTO DIFFERENTIAL Routine 10/30/2024 11:06 AM CDT Neck mass Lung nodules Iron deficiency anemia due to sideropenic dysphagia IRON,TRANSFERN,CALC.T IBC,%SAT Routine 10/30/2024 11:06 AM CDT Neck mass Lung nodules Iron deficiency anemia due to sideropenic dysphagia FERRITIN Routine 10/30/2024 11:06 AM CDT Neck mass Lung nodules Iron deficiency anemia due to sideropenic dysphagia CMP (COMPREHENSIVE METABOLIC PANEL) Routine 10/30/2024 11:06 AM CDT Neck mass Lung nodules Iron deficiency anemia due to sideropenic dysphagia COMPLETE BLOOD COUNT (CBC) WITH DIFF Routine 10/30/2024 11:06 AM CDT Neck mass Lung nodules Iron deficiency anemia due to sideropenic dysphagia PET CT TUMOR IMAGING SKULL BASE TO MID THIGH Routine 10/11/2024 2:15 PM CDT Ankylosing spondylitis of multiple sites in spine (HCC) Lymphadenopathy, axillary Neck mass Lung nodules CT REFERENCE IMAGES FOR IMAGE IMPORT Routine 09/28/2024 7:22 AM CDT NM BONE SCAN WHOLE BODY Routine 09/25/2024 1:04 PM CDT Pain in joints of [...] deficiency anemia, unspecified iron deficiency anemia type from Last 3 Months Results * HEPATITIS C ANTIBODY (11/23/2024 9:30 AM CDT) hepatitis C antibody 0.32 <1 S/CO 11/23/2024 3:24 PM CDT [facility] Comment: Signal/Cutoff ratio < 0.79 is Nondetected Signal/Cutoff ratio 0.80-0.99 is Grayzone Signal/Cutoff ratio > 0.99 is Detected Supplemental assays are recommended if signal/cutoff ratio is >/=1.00. Signal/cutoff ratio result >/= 5.00 is 97% predictive of positivity for recombinant immunoblot assay (RIBA) and will be reported to the [place] Department of Public [facility] as required. Blood Venipuncture / Unknown 11/23/2024 9:30 AM CDT 11/23/2024 10:15 AM CDT us Veronika Kirk ATTENDING PSYCHIATRIST, LIEUTENANT SHIFT SUPERVISOR CHEMISTRY ORDERABL ES Final Result [facility] [address] [place] [address], * (ABNORMAL) IRON,TRANSFERN,CALC.TIBC,%SAT (10/30/2024 11:06 AM CDT) IRON 16(L) 31 - 144 mcg/dL 10/30/2024 12:11 PM CDT [facility] TRANSFERRIN 186 174 - 364 mg/dL 10/30/2024 12:11 PM CDT [facility] TIBC, CALCULATED 233(L) 261 - 462 mcg/dL 10/30/2024 12:11 PM CDT [facility] % SATURATION * 7(L) 15 - 62 % 10/30/2024 12:11 PM CDT [facility] Blood Venipuncture / Unknown 10/30/2024 11:06 AM CDT 10/30/2024 11:06 AM CDT us Jose Barber MD CHEMISTRY ORDERABLES Fin al Result [facility] [address] [place] [address] * (ABNORMAL) CBC WITH AUTO DIFFERENTIAL (10/30/2024 11:06 AM CDT) WBC 10.87 4.00 - 12.00 10(3)/[facility] 10/30/2024 11:54 AM CDT [facility] RBC 4.33(L) 4.40 - 5.80 10(6)/[facility] 10/30/2024 11:54 AM CDT [facility] HEMOGLOBIN (HGB) 10.8(L) 13.0 - 16.5 g/dL 10/30/2024 11:54 AM CDT [facility] HEMATOCRIT (HCT) 35.2(L) 38.0 - 50.0 % 10/30/2024 11:54 AM CDT [facility] MCV 81.3(L) 82.0 - 96.0 fL 10/30/2024 11:54 AM CDT [facility] MCH 24.9(L) 26.0 - 32.0 pg 10/30/2024 11:54 AM CDT [facility] MCHC 30.7(L) 31.0 - 36.0 g/dL 10/30/2024 11:54 AM CDT [facility] PLATELET COUNT 460(H) 140 - 440 10(3)/[facility] 10/30/2024 11:54 AM CDT [facility] RDW 16.3(H) 11.8 - 15.5 % 10/30/2024 11:54 AM CDT [facility] MPV 8.4 8.0 - 12.6 fL 10/30/2024 11:54 AM CDT [facility] NEUTROPHILS 65.3 40.0 - 68.0 % 10/30/2024 11:54 AM CDT [facility] LYMPHOCYTES 22.2 19.0 - 49.0 % 10/30/2024 11:54 AM CDT [facility] MONOCYTES 10.2 3.0 - 13.0 % 10/30/2024 11:54 AM CDT [facility] EOSINOPHILS 1.6 0.0 - 8.0 % 10/30/2024 11:54 AM CDT [facility] BASOPHILS 0.7 0.0 - 1.0 % 10/30/2024 11:54 AM CDT [facility] ABSOLUTE NEUTROPHILS 7.10(H) 1.40 - 5.30 10(3)/[facility] 10/30/2024 11:54 AM CDT [facility] ABSOLUTE LYMPHOCYTES 2.41 0.90 - 3.30 10(3)/[facility] 10/30/2024 11:54 AM CDT [facility] ABSOLUTE MONOCYTES 1.11(H) 0.10 - 0.90 10(3)/[facility] 10/30/2024 11:54 AM CDT [facility] ABSOLUTE EOSINOPHIL 0.17 0.00 - 0.50 10(3)/[facility] 10/30/2024 11:54 AM CDT [facility] ABSOLUTE BASOPHILS 0.08 0.00 - 0.10 10(3)/[facility] 10/30/2024 11:54 AM CDT [facility] NRBC PER 100 WBC 0 10/31/19 11:54 AM CDT [facility] Blood Venipuncture / Unknown 10/30/2024 11:06 AM CDT 10/30/2024 11:06 AM CDT us Jose Barber MD HEMATOLOGY ORDERABLES Fi nal Result [facility] [address] [place] [address] * FERRITIN (10/30/2024 11:06 AM CDT) FERRITIN 244 22 - 274 ng/mL 10/30/2024 12:27 PM CDT [facility] Blood Venipuncture / Unknown 10/30/2024 11:06 AM CDT 10/30/2024 11:06 AM CDT us Jose Barber MD CHEMISTRY ORDERABLES Fin al Result [facility] [address] [place] [address] * (ABNORMAL) CMP (COMPREHENSIVE METABOLIC PANEL) (10/30/2024 11:06 AM CDT) Pathologist [facility] SODIUM 137 136 - 145 mmol/L 10/30/2024 12:11 PM CDT [facility] POTASSIUM 3.9 3.5 - 5.1 mmol/L 10/30/2024 12:11 PM CDT [facility] CHLORIDE 102 98 - 107 mmol/L 10/30/2024 12:11 PM CDT [facility] CO2, VENOUS 26 22 - 30 mmol/L 10/30/2024 12:11 PM CDT [facility] ANION GAP 12.9 <18.0 mmol/L 10/30/2024 12:11 PM CDT [facility] GLUCOSE 111(H) 70 - 99 mg/dL 10/30/2024 12:11 PM CDT [facility] BUN 12 9 - 21 mg/dL 10/30/2024 12:11 PM CDT [facility] CREATININE, BLOOD 0.63(L) 0.70 - 1.30 mg/dL 10/30/2024 12:11 PM CDT [facility] BUN/CREATININE RATIO 19 12 - 20 ratio 10/30/2024 12:11 PM CDT [facility] TOTAL PROTEIN 8.5(H) 6.0 - 8.0 g/dL 10/30/2024 12:11 PM T [facility] ALBUMIN 4.0 3.5 - 5.0 g/dL 10/30/2024 12:11 PM [facility] A/G RATIO 0.9(L) 1.0 - 2.2 10/30/2024 12:11 PM T [facility] CALCIUM 9.4 8.7 - 10.5 mg/dL 10/30/2024 12:11 PM [facility] T BILI 0.1(L) 0.2 - 1.2 mg/dL 10/30/2024 12:11 PM T [facility] SGOT (AST) 14 <43 U/L 10/30/2024 12:11 PM [facility] SGPT (ALT) 9 <56 U/L 10/30/2024 12:11 PM [facility] ALKALINE PHOSPHATASE 72 40 - 150 U/L 10/30/2024 12:11 PM [facility] IS THE PATIENT REQUIRED TO BE FASTING? No 10/30/2024 12:11 PM [facility] GFR, ESTIMATED >60 >=60 10/30/2024 12:11 PM [facility] Comment: Creatinine Clearance is the preferred criteria for selecting drug dose adjustments in renally impaired patients. The GFR is provided as additional pertinent clinical information. GFR is reported in mL/min/1.73 sq m. Calculation based on the Chronic Kidney Disease Epidemiology Collaboration (CKD- EPI) equation refit without adjustment for race. GFR, EST. >60 >=60 025 12:11 PM [facility] GFR, EST. NONAFRICAN >60 >=60 10/30/2024 12:11 PM [facility] Blood Venipuncture / Unknown 10/30/2024 11:06 AM CDT 10/30/2024 11:06 AM CDT Jose Alea Barber MD CHEMISTRY ORDERABLES Fin al Result [facility] [address] [place] [address] * PET CT TUMOR IMAGING SKULL BASE [...] Lamont Kelly M.D. LB: LAKSHMI Report ID: [id number] Reading Location: [place] [address] Procedure Note Lamont Kelly MD - 10/13/2024 [...] Lamont Kelly M.D. LB: LAKSHMI Report ID: [id number] Reading Location: [id number] IMPRESSION: No abnormal FDG uptake within the [...] on follow-up imaging recommended. Trace pleural effusions. us Jose Barber MD IMG PET Final Re sult * CT REFERENCE IMAGES FOR IMAGE IMPORT (09/28/2024 7:22 AM CDT) us Not On File Provider IMG CT ORDERABLES Final Res ult * NM [...] Narrative 09/25/2024 3:15 PM CDT EXAM DESCRIPTION: WI BONE SCAN WHOLE BODY RADIOPHARMACEUTICAL: 25.8 mCi [...] Lamont Kelly M.D. LB: LAKSHMI Report ID: [id number] Reading Location: [id number] Procedure Note Lamont Kelly MD - 09/25/2024 EXAM DESCRIPTION: [place] BONE SCAN WHOLE BODY RADIOPHARMACEUTICAL: 25.8 mCi [...] Lamont Kelly M.D. LB: LAKSHMI Report ID: [id number] Reading Location: [id number] IMPRESSION: 1. No suspicious focal areas of uptake are seen to suggest osteoblastic metastatic disease. 2. Degenerative type uptake within the shoulders and hips bilaterally. 3. Scattered areas of uptake within the left foot in a pattern most typical of degenerative change but is asymmetric when compared to the right foot. [facility] ORDERABLES Final Result * CT CHEST [...] Pablo Salter M.D. KR: MEJIA Report ID: [id number] Reading Location: [place] [address] Procedure Note Pablo Salter MD - 09/26/2024 [...] Pablo Salter M.D. KR: MEJIA Report ID: [id number] Reading Location: [id number] IMPRESSION: 1. Relatively symmetric mixed lytic and sclerotic osseous changes about the bilateral sacroiliac joints, consistent with spondyloarthropathy. 2. Indeterminate circumscribed subcutaneous fluid collections within the chest and neck, the largest measuring 5.1 cm in the left posterolateral neck. 3. Mild axillary, external iliac, inguinal lymphadenopathy. 4. Trace bilateral pleural effusions. [facility] Alea Barber MD IMG CT ORDERABLES Final [...] Andrew Nicole D.O. AP: AP Report ID: [id number] Reading Location: [place] [address] Procedure Note Andrew Nicole DO - 09/21/2024 [...] Andrew Nicole D.O. AP: AP Report ID: [id number] Reading Location: [id number] IMPRESSION: 1. Fluid density partially exophytic masses [...] diffuse idiopathic skeletal hyperostosis. Request clinical correlation. [facility] Alea Barber MD IM CT ORDERABLES Final Result from Last 3 Months Insurance MEDICAID [employer] Care Teams Media Monitor Relationship Specialty Start Date End Date Vania Herrera, ATTENDING PSYCHIATRIST, LIEUTENANT SHIFT SUPERVISOR [address] [place] [address] PCP - General Advanced Practice Nurse 08/29/24 Sonja Muñiz MD [address] [phone] Consulting Physician Otolaryngology 11/10/24
--- OUTSIDE RECORDS SUMMARY | 2024-11-29 07:57 | XMS_ITS | Encounter Summary ---
Author Organization [facility] Address [address] [facility] [place] [address] Phone Care Team Providers Care Investigative Research Specialist Name Role Phone Vania Herrera APRN, ESCROW AGENT Primary Care Provider + Sonja Muñiz MD Unavailable [phone] Encounter Details Date Type Department Care Team (Late st Contact Info) Description 11/23/2024 Results Follow-Up [facility] [address] [place] [address] Shwetha Brennan APRN, ESCROW AGENT [address] [place] [address] HEPATITIS C ANTIBODY Social History Tobacco Use Types Packs/Day Years Used Date Smoking Tobacco: Former Cigarettes 0.3 25.3 S tarted: 08/30/1999 Smokeless Tobacco: Never Comments:11/15/24-Quit smoking 2 weeks ago. Alcohol Use Standard Drinks/Week Comments Not Currently 0 (1 standard drink = 0.6 oz pure alcohol) Stopped prior to completing rehab in Jun 2024 Sex and Gender Information Value Date Recorded Sex Assigned at Not on file Legal Sex Male 4:52 PM CDT Gender Identity Not on file Sexual Orientation Not on file documented as of this encounter Plan of Treatment Upcoming Encounters Date Type Department Care Team (Late st Contact Info) Description 01/02/2025 8:30 AM CDT Lab [facility] [address] [place] [phone] Jose Barber MD [address] [place] [phone] Discharge Disposition: Discharged to home or Selfcare 01/02/2025 9:00 AM CDT Office Visit [facility] [address] [place] [phone] Jose Barber MD [address] [place] [address] Discharge Disposition: Discharged to home or Selfcare documented as of this encounter Goals Goal Patient Goal Type Associated Problems Recent Progress Patient-Stated? Author Chronic Disease Management Chronic Disease Management Emma Wray, RN Note: To effectively check in with [facility] Remote Patient Monitoring Hypertension program via text on Wednesday and Wednesday at 2:30. pm. documented as of this encounter Visit Diagnoses Not on filedocumented in this encounter Care Teams Investigative Research Specialist Relationship Specialty Start Date End Date Vania Herrera APRN, BARRIE [address] [place] [address] PCP - General Advanced Practice Nurse 08/29/24 Sonja Muñiz MD [address] [phone] Consulting Physician Otolaryngology 11/10/24 documented as of this encounter
--- OUTSIDE RECORDS SUMMARY | 2024-11-29 07:57 | XMS_ITS | Encounter Summary ---
Author Organization [facility] Address [address] [place] [address] Phone Care Team Providers Care Fourth Grade Teacher Name Role Phone Vania Herrera APRN, CNP Primary Care Provider + Sonja Muñiz MD Unavailable [phone] Reason for Visit * Reason Onset Date Comments Prior Authorization 10/10/2024 Encounter Details Date Type Department Care Team (Late st Contact Info) Description 10/10/2024 Telephone [facility] Out[facility] [address] [place] [address] Jose Barber MD [address] [place] [address] Prior Authorization Social History Tobacco Use Types Packs/Day Years Used Date Smoking Tobacco: Every Day Cigarettes 0.3 25.3 Started: 08/30/1999 Smokeless Tobacco: Never Alcohol Use [...] 10/10/2024 4:59 PM CDT Spoke with Sidra Dale Peer to peer scheduled for Wednesday10/11/24 at 8:[address] Juno Garland. Gave Sidracastillo Barber's cell phone and Dr. Barber made aware. * Telephone Encounter - Elvia Goldstein RN - 10/10/2024 3:14 PM CDT Spoke to Timmy from [facility] on follow up for requested Peer to Peer. Per Dr Barber she will review chart and attempt a Peer to Peer if she can provide additional details. * Telephone Encounter - Ingrid De León - 10/10/2024 8:39 AM CDT Auth Denied-P2P offered Ordering Provider: Internal Appointment Info: Clinic: [facility] PET Clinic Provider: [id number] Appt Date/Time: Friday October 11, 2024 12:00 PM Payor + Plan: MEDICAID [facility] MEDICAID CPT/Test: [address] Authorization denied through: [employer] Phone number called: website Reference number / inside technical sales representative's name and time of call: [phone] Estimated Amount [Full Charges]: 17768.00 Reason for denial: Imaging (Positron Emissions Tomography) is indicated to check a single growth (nodule) greater than 0.8 cm (centimeters) and not larger than four cm only. Your records show that this does not apply to you. [facility] does not cover this study for screening of cancer. This finding was based on review of [facility] Clinical Policy Bulletin (CPB) Number 0071: Positron Emission Tomography (PET). Add'l Steps Taken (Pt Notified, Reached out to Provider, etc.): sent t/e to provider and advertising internship Peer to Peer review offered by Payer: Yes Peer to Peer review expires: 10/20/2024 Case #: [id number] Phone #: [phone] Ordering Provider: Jose Barber MD Phys. Notified? Yes Note for ordering office: If patient wishes to cancel the appointment, please complete cancellationprocess from the patient's appointment desk. Notification Made to Patient: yes documented in this encounter Plan of Treatment Upcoming Encounters Date Type Department Care Team (Late st Contact Info) Description 01/02/2025 8:30 AM CDT Lab [facility] Oncology Services [address] [place] [phone] Jose Barber MD [address] [place] [address] Discharge Disposition: Discharged to home or Selfcare 01/02/2025 9:00 AM CDT Office Visit [facility] Services [address] [place] [phone] Jose Barber MD [address] [place] [address] Discharge Disposition: Discharged to home or Selfcare documented as of this encounter Visit Diagnoses Not on filedocumented in this encounter Care Teams Fourth Grade Teacher Relationship Specialty Start Date End Date Vania Herrera APRN, BARRIE [address] [place] [address] PCP - General Advanced Practice Nurse 08/29/24 Sonja Muñiz MD [address] [phone] Consulting Physician Otolaryngology 11/10/24 documented as of this encounter
--- OUTSIDE RECORDS SUMMARY | 2024-11-29 07:57 | XMS_ITS | Clinical Summary ---
Author Organization [facility] Address [facility] [place] [address] Care Team Providers Care Factory Hand Name Role Phone Vilma Cravenn Kaitlyn ANALOG CIRCUIT DESIGNER Primary Care Provider Allergies No known active [...] 2:39 PM CDT Height 170.2 cm (5' 7) 02/25/2021 2:39 PM CDT Body Mass Index 17.23 02/25/2021 2:39 PM CDT Plan of Treatment Health Maintenance Due Date Last Done Comments Annual Physical 1984 Hepatitis C 09/11/1999 DTaP, Tdap and Td Vaccines ( 1 - Tdap) 2000 Hepatitis B Vaccines (1 of 3 - 19+ 3-dose series) 2000 Pneumococcal Vaccine: Pediatrics (0 to 5 Years) and At-Risk Patients (6 to 49 Years) (1 of 2 - PCV) 2000 COVID-19 Vaccine (3 - 2023-2 5 season) 2024 11/11/2020, 10/21/2020 HPV Vaccines Aged Out No longer eligi [...] this topic Insurance [facility] [facility] [address] [place] [address] [facility] Care Teams Factory Hand Relationship Specialty Start Date End Date Marely Craven [place] [address] PCP - General NURSE PRACTITIONER 12/16/20
--- OUTSIDE RECORDS SUMMARY | 2024-11-29 07:57 | XMS_ITS ---
Author Organization [facility] Address [address] [place] [address] Phone Care Team Providers Care Technician Support Association Name Role Phone Vania Herrera APRN, BARRIE Primary Care Provider + Sonja Muñiz MD Unavailable [phone] [facility] Chronic Condition Monitoring Status:Enrolled (Active) Start date:11/03/2024 Enrollment date:11/03/2024 Related social drivers of health:Social Connections, Alcohol Use, Tobacco Use, Financial Resource Strain, Depression, Stress, Physical Activity, Food Insecurity, Transportation Needs, Housing Stability, Utilities Related service episodes:[facility] Service Episode (Closed) Continued Care and Services Coordination
[2024-11-29 08:10] VITALS: BP 100/73; PULSE 82; RESP 18; TEMP 36.6; O2SAT 95
[2024-11-29 08:24] VITALS: BMI 21.3
[2024-11-29] MEDS: IRON SUCROSE COMPLEX 300 MG in SODIUM CHLORIDE 0.9% IV 235 ML 125 MG IVPB (08:58)
--- NOTE | 2024-11-29 11:33 | PC.NURSE ---
Patient tolerated infusion well with no complaints or s/sx of distress or adverse reaction. Patient was able to ambulate self out of room 226 without difficulty to personal vehicle.
== END 2024-11-29 07:54 | disposition home or self-care (01) ==
PROVIDERS: PCP Nurse Practitioner Family; Visit Provider Nurse Practitioner Family
DX: T45.4X5A Adverse effect of iron and its compounds, initial encounter (principal)
CPT/HCPCS: 96365; 96366; J1756

== ENCOUNTER 2024-12-13 14:42 | Outpatient (CLI) | payer OTHER, SELFPAY ==
--- OUTSIDE RECORDS SUMMARY | 2024-12-13 14:49 | XMS_ITS ---
Author Organization [facility] Address [address] [place] [address] Phone Care Team Providers Care Bookkeeper Name Role Phone Vania Herrera APRN, BARRIE Primary Care Provider + Sonja Muñiz MD Unavailable [phone] [facility] Chronic Condition Monitoring Status:Enrolled (Active) Start date:11/03/2024 Enrollment date:11/03/2024 Related social drivers of health:Social Connections, Alcohol Use, Tobacco Use, Financial Resource Strain, Depression, Stress, Physical Activity, Food Insecurity, Transportation Needs, Housing Stability, Utilities Related service episodes:[facility] Service Episode (Closed) Continued Care and Services Coordination
--- OUTSIDE RECORDS SUMMARY | 2024-12-13 14:49 | XMS_ITS | Encounter Summary ---
Author Organization [facility] Address [address] [facility] [place] [address] Phone Care Team Providers Care Personnel Psychologist Name Role Phone Vania Herrera APRN, CISCO NETWORK ENGINEER Primary Care Provider + Sonja Muñiz MD Unavailable [phone] Encounter Details Date Type Department Care Team (Late st Contact Info) Description 11/23/2024 Results Follow-Up [facility] [address] [place] [address] Shwetha Brennan APRN, CISCO NETWORK ENGINEER [address] [place] [address] HEPATITIS C ANTIBODY Social History [...] 01/02/2025 8:30 AM CDT Lab [facility] Oncology Services [address] [place] [phone] Jose Barber MD [address] [place] [address] Discharge Disposition: Discharged to home or Selfcare 01/02/2025 9:00 AM CDT Office Visit [facility] Oncology Services [address] [place] [phone] Jose Barber MD [address] [place] [address] Discharge Disposition: Discharged to home or Selfcare [...] on filedocumented in this encounter Care Teams Personnel Psychologist Relationship Specialty Start Date End Date Vania Herrera APRN, BARRIE [address] [place] [address] PCP - General Advanced Practice Nurse 08/29/24 Sonja Muñiz MD [address] [phone] Consulting Physician Otolaryngology 11/10/24 documented as of this encounter
--- OUTSIDE RECORDS SUMMARY | 2024-12-13 14:49 | XMS_ITS | Clinical Summary ---
Author Organization [facility] Address [facility] [place] [address] Care Team Providers Care Rate Supervisor Name Role Phone Vilma Cravenn Kaitlyn NATURALIST Primary Care Provider Allergies No known active [...] Years) (1 of 2 - PCV) 2000 HPV Vaccines (1 - 3-dose SCD M series) 2008 COVID-19 Vaccine (3 - 2023-2 5 season) 2024 11/11/2020, 10/21/2020 Meningococcal B Vaccine Aged Out No l onger eligible based on patient's age to complete this topic Meningococcal Vaccine Aged Out No charleen chapo eligible based on patient's age to complete this topic RSV Immunizations Under 20 Months Aged Out No longer eligible b ased on patient's age to complete this topic Insurance [facility] Care Teams Rate Supervisor Relationship Specialty Start Date End Date Marely [place] [address] PCP - General NURSE PRACTITIONER 12/16/20
--- OUTSIDE RECORDS SUMMARY | 2024-12-13 14:49 | XMS_ITS | Clinical Summary ---
Author Organization [facility] Address [address] [place] [address] Phone Care Team Providers Care Turbine Room Attendant Name Role Phone Vania Herrera APRN, WEB OPERATIONS ADMINISTRATOR Primary Care Provider + Sonja Muñiz MD Unavailable [phone] Allergies No known active allergies Medications [...] Department Care Team Description 11/23/2024 Results Follow-Up [facility] [address] [place] [phone] Shwetha Brennan APRN, WEB OPERATIONS ADMINISTRATOR HEPATITIS C ANTIBODY 11/21/2024 Travel 11/15/2024 10:40 AM CDT Telemedicine [facility] [address] [place] [phone] Primary hypertension (Primary Dx); Need for hepatitis C screening test Discharge Disposition: Discharged to home or Selfcare 11/15/2024 Patient Outreach [facility] [address] [place] [phone] Emma Mehta, RN Patient Outreach (Patient is enrolled in the [facility] Remote Patient Monitoring Program. /) 11/13/2024 Travel 11/07/2024 Telephone [facility] [address] [place] [phone] Ric, [facility] Chronic Care Need Order 10/30/2024 11:40 AM CDT Office Visit [facility] Oncology Services [address] [place] [phone] Jose Barber MD Neck mass (Primary Dx); Cyst, dermoid, scalp and neck; Lymphadenopathy, axillary; Ankylosing spondylitis of multiple sites in spine (HCC); Iron deficiency anemia, unspecified iron deficiency anemia type Discharge Disposition: Discharged to home or Selfcare 10/30/2024 11:20 AM CDT [facility] [address] [place] [phone] Jose Barber MD Neck mass; Lung nodules; Iron deficiency anemia due to sideropenic dysphagia Discharge Disposition: Discharged to home or Selfcare 10/30/2024 Travel 10/11/2024 11:31 AM CDT - 10/11/2024 11:59 PM CDT [facility] [address] [place] [address] Jose Barber MD Discharge Disposition: Discharged to home or Selfcare 10/11/2024 Travel 10/10/2024 Telephone [facility] Outpatient [address] [place] [phone] Jose Barber MD Prior Authorization 09/29/2024 11:20 AM CDT [facility] [address] [place] [address] Jose Barber MD Pain in joints of both feet (Primary Dx); Ankylosing spondylitis of multiple sites in spine (HCC); Lymphadenopathy, axillary; Neck mass; Lung nodules; Iron deficiency anemia due to sideropenic dysphagia Discharge Disposition: Discharged to home or Selfcare 09/29/2024 Travel 09/28/2024 7:21 AM CDT - 09/28/2024 11:59 PM CDT [facility] [address] [place] [address] Provider, Not On File Discharge Disposition: Discharged to home or Selfcare 09/27/2024 Travel 09/25/2024 12:42 PM CDT - 09/25/2024 11:59 PM CDT [facility] [address] [place] [phone] Jose Barber MD Discharge Disposition: Discharged to home or Selfcare 09/25/2024 9:13 AM CDT - 09/25/2024 12:41 PM CDT [facility] [address] [place] [phone] Jose Barber MD Discharge Disposition: Discharged to home or Selfcare 09/24/2024 Travel 09/21/2024 1:02 PM CDT - 09/21/2024 11:59 PM CDT Hospital Encounter [facility] CT [address] [facility] [place] [phone] Jose Barber MD Discharge Disposition: Discharged to home or Selfcare 09/21/2024 1:02 PM CDT - 09/21/2024 11:59 PM CDT Hospital Encounter [facility] CT [address] [facility] [place] [address] Jose Barber MD Discharge Disposition: Discharged to home or Selfcare 09/21/2024 Travel from Last 3 Months Immunizations Immunization Administration Dates Next Due Covid-19, Mrna, Lnp-s, Pf, 3 0 Mcg/0.3 Ml Dose (C-sam) 06/13/2021,11/11/2020,10/21/2020 Influenza Vaccine, Quadrivalent, PF 02/23/2023 Family [...] Info) Description 01/02/2025 8:30 AM CDT [facility] [address] [place] [phone] Jose Barber MD [address] [place] [address] Discharge Disposition: Discharged to home or Selfcare 01/02/2025 9:00 AM CDT Office Visit [facility] Oncology Services [address] [place] [phone] Jose Barber MD [address] [place] [address] Discharge Disposition: Discharged to home or Selfcare [...] 0.32 <1 S/CO 11/23/2024 3:24 PM CDT [facility] Comment: Signal/Cutoff ratio < 0.79 is Nondetected Signal/Cutoff ratio 0.80-0.99 is Grayzone Signal/Cutoff ratio > 0.99 is Detected Supplemental assays are recommended if signal/cutoff ratio is >/=1.00. Signal/cutoff ratio result >/= 5.00 is 97% predictive of positivity for recombinant immunoblot assay (RIBA) and will be reported to the [place] Department of Public Health as required. Blood Venipuncture / Unknown 11/23/2024 9:30 AM CDT 11/23/2024 10:15 AM CDT us Veronika Kirk FLOOR SANDING MACHINE OPERATOR, WEB OPERATIONS ADMINISTRATOR CHEMISTRY ORDERABL ES Final Result [facility] [address] [place] [address], * (ABNORMAL) IRON,TRANSFERN,CALC.TIBC,%SAT (10/30/2024 11:06 AM CDT) IRON 16(L) 31 - 144 mcg/dL 10/30/2024 12:11 PM CDT [facility] TRANSFERRIN 186 174 - 364 mg/dL 10/30/2024 12:11 PM CDT [facility] TIBC, CALCULATED 233(L) 261 - 462 mcg/dL 10/30/2024 12:11 PM CDT [facility] % SATURATION * 7(L) 15 - 62 % 10/30/2024 12:11 PM CDT [facility] Blood Venipuncture / Unknown 10/30/2024 11:06 AM CDT 10/30/2024 11:06 AM CDT us Jose Barber MD CHEMISTRY ORDERABLES Fin al Result [facility] [address] [place] [address] * (ABNORMAL) CBC WITH AUTO DIFFERENTIAL (10/30/2024 11:06 AM CDT) WBC 10.87 4.00 - 12.00 10(3)/[facility] 10/30/2024 11:54 AM CDT [facility] RBC 4.33(L) 4.40 - 5.80 10(6)/[facility] 10/30/2024 11:54 AM CDT [facility] HEMOGLOBIN (HGB) 10.8(L) 13.0 - 16.5 g/dL 10/30/2024 11:54 AM CDT [facility] HEMATOCRIT (HCT) 35.2(L) 38.0 - 50.0 % 10/30/2024 11:54 AM CDT [facility] MCV 81.3(L) 82.0 - 96.0 fL 10/30/2024 11:54 AM CDT [facility] MCH 24.9(L) 26.0 - 32.0 pg 10/30/2024 11:54 AM CDT [facility] MCHC 30.7(L) 31.0 - 36.0 g/dL 10/30/2024 11:54 AM CDT [facility] PLATELET COUNT 460(H) 140 - 440 10(3)/[facility] 10/30/2024 11:54 AM CDT [facility] RDW 16.3(H) 11.8 - 15.5 % 10/30/2024 11:54 AM CDT [facility] MPV 8.4 8.0 - 12.6 fL 10/30/2024 11:54 AM CDT [facility] NEUTROPHILS 65.3 40.0 - 68.0 % 10/30/2024 11:54 AM CDT [facility] LYMPHOCYTES 22.2 19.0 - 49.0 % 10/30/2024 11:54 AM CDT [facility] MONOCYTES 10.2 3.0 - 13.0 % 10/30/2024 11:54 AM CDT [facility] EOSINOPHILS 1.6 0.0 - 8.0 % 10/30/2024 11:54 AM CDT [facility] BASOPHILS 0.7 0.0 - 1.0 % 10/30/2024 11:54 AM CDT [facility] ABSOLUTE NEUTROPHILS 7.10(H) 1.40 - 5.30 10(3)/[facility] 10/30/2024 11:54 AM CDT [facility] ABSOLUTE LYMPHOCYTES 2.41 0.90 - 3.30 10(3)/[facility] 10/30/2024 11:54 AM CDT [facility] ABSOLUTE MONOCYTES 1.11(H) 0.10 - 0.90 10(3)/[facility] 10/30/2024 11:54 AM CDT [facility] ABSOLUTE EOSINOPHIL 0.17 0.00 - 0.50 10(3)/[facility] 10/30/2024 11:54 AM CDT [facility] ABSOLUTE BASOPHILS 0.08 0.00 - 0.10 10(3)/[facility] 10/30/2024 11:54 AM CDT [facility] NRBC PER 100 WBC 0 10/31/19 11:54 AM CDT [facility] Blood Venipuncture / Unknown 10/30/2024 11:06 AM CDT 10/30/2024 11:06 AM CDT us Jose Barber MD HEMATOLOGY ORDERABLES Fi nal Result [facility] [address] [place] [address] * FERRITIN (10/30/2024 11:06 AM CDT) FERRITIN 244 22 - 274 ng/mL 10/30/2024 12:27 PM CDT [facility] Blood Venipuncture / Unknown 10/30/2024 11:06 AM CDT 10/30/2024 11:06 AM CDT us Jose Barber MD CHEMISTRY ORDERABLES Fin al Result [facility] [address] [place] [address] * (ABNORMAL) CMP (COMPREHENSIVE METABOLIC PANEL) (10/30/2024 11:06 AM CDT) Pathologist [facility] SODIUM 137 136 - 145 mmol/L 10/30/2024 12:11 PM CDT [facility] POTASSIUM 3.9 3.5 - 5.1 mmol/L 10/30/2024 12:11 PM CDT [facility] CHLORIDE 102 98 - 107 mmol/L 10/30/2024 12:11 PM CDT [facility] CO2, VENOUS 26 22 - 30 mmol/L 10/30/2024 12:11 PM CDT [facility] ANION GAP 12.9 <18.0 mmol/L 10/30/2024 12:11 PM CDT [facility] GLUCOSE 111(H) 70 - 99 mg/dL 10/30/2024 12:11 PM CDT [facility] BUN 12 9 - 21 mg/dL 10/30/2024 12:11 PM CDT [facility] CREATININE, BLOOD 0.63(L) 0.70 - 1.30 mg/dL 10/30/2024 12:11 PM CDT [facility] BUN/CREATININE RATIO 19 12 - 20 ratio 10/30/2024 12:11 PM CDT [facility] TOTAL PROTEIN 8.5(H) 6.0 - 8.0 g/dL 10/30/2024 12:11 PM T [facility] ALBUMIN 4.0 3.5 - 5.0 g/dL 10/30/2024 12:11 PM [facility] A/G RATIO 0.9(L) 1.0 - 2.2 10/30/2024 12:11 PM T [facility] CALCIUM 9.4 8.7 - 10.5 mg/dL 10/30/2024 12:11 PM [facility] T BILI 0.1(L) 0.2 - 1.2 mg/dL 10/30/2024 12:11 PM T [facility] SGOT (AST) 14 <43 U/L 10/30/2024 12:11 PM [facility] SGPT (ALT) 9 <56 U/L 10/30/2024 12:11 PM [facility] ALKALINE PHOSPHATASE 72 40 - 150 U/L 10/30/2024 12:11 PM [facility] IS THE PATIENT REQUIRED TO BE FASTING? No 10/30/2024 12:11 PM [facility] GFR, ESTIMATED >60 >=60 10/30/2024 12:11 PM [facility] Comment: Creatinine Clearance is the preferred criteria for selecting drug dose adjustments in renally impaired patients. The GFR is provided as additional pertinent clinical information. GFR is reported in mL/min/1.73 sq m. Calculation based on the Chronic Kidney Disease Epidemiology Collaboration (CKD- EPI) equation refit without adjustment for race. GFR, EST. >60 >=60 025 12:11 PM [facility] GFR, EST. NONAFRICAN >60 >=60 10/30/2024 12:11 PM [facility] Blood Venipuncture / Unknown 10/30/2024 11:06 AM CDT 10/30/2024 11:06 AM CDT Jose Alea Barber MD CHEMISTRY ORDERABLES Fin al Result [facility] [place] [address] * PET CT TUMOR IMAGING SKULL BASE [...] Lamont Kelly M.D. LB: LAKSHMI Report ID: [id number] Reading Location: [place] [address] Procedure Note Lamont Kelly MD - 10/13/2024 [...] Lamont Kelly M.D. LB: LAKSHMI Report ID: [id number] Reading Location: [id number] IMPRESSION: No abnormal FDG uptake within the [...] Narrative 09/25/2024 3:15 PM CDT EXAM DESCRIPTION: DC BONE SCAN WHOLE BODY RADIOPHARMACEUTICAL: 25.8 mCi [...] Lamont Kelly M.D. LB: LAKSHMI Report ID: [id number] Reading Location: [id number] Procedure Note Lamont Kelly MD - 09/25/2024 EXAM DESCRIPTION: DC BONE SCAN WHOLE BODY RADIOPHARMACEUTICAL: 25.8 mCi [...] Lamont Kelly M.D. LB: LAKSHMI Report ID: [id number] Reading Location: [id number] IMPRESSION: 1. No suspicious focal areas of uptake are seen to suggest osteoblastic metastatic disease. 2. Degenerative type uptake within the shoulders and hips bilaterally. 3. Scattered areas of uptake within the left foot in a pattern most typical of degenerative change but is asymmetric when compared to the right foot. [facility] Barber MD [facility] ORDERABLES Final Result * CT CHEST [...] Pablo Salter M.D. KR: MEJIA Report ID: [id number] Reading Location: [place] [address] Procedure Note Pablo Salter MD - 09/26/2024 [...] Pablo Salter M.D. KR: MEJIA Report ID: [id number] Reading Location: [id number] IMPRESSION: 1. Relatively symmetric mixed lytic and sclerotic osseous changes about the bilateral sacroiliac joints, consistent with spondyloarthropathy. 2. Indeterminate circumscribed subcutaneous fluid collections within the chest and neck, the largest measuring 5.1 cm in the left posterolateral neck. 3. Mild axillary, external iliac, inguinal lymphadenopathy. 4. Trace bilateral pleural effusions. On license of [facility] Alea Barber MD IMG CT ORDERABLES Final [...] Andrew Nicole D.O. AP: AP Report ID: [id number] Reading Location: [place] [address] Procedure Note Andrew Nicole DO - 09/21/2024 [...] Andrew Nicole D.O. AP: AP Report ID: [id number] Reading Location: [id number] IMPRESSION: 1. Fluid density partially exophytic masses [...] diffuse idiopathic skeletal hyperostosis. Request clinical correlation. On license of [facility] Alea Barber MD IM CT ORDERABLES Final Result from Last 3 Months Insurance MEDICAID [employer] Care Teams Turbine Room Attendant Relationship Specialty Start Date End Date Vania Herrera, FLOOR SANDING MACHINE OPERATOR, WEB OPERATIONS ADMINISTRATOR [address] [place] [address] PCP - General Advanced Practice Nurse 08/29/24 Sonja Muñiz MD [address] [phone] Consulting Physician Otolaryngology 11/10/24
--- OUTSIDE RECORDS SUMMARY | 2024-12-13 14:49 | XMS_ITS | Encounter Summary ---
Author Organization [facility] Address [address] [place] [address] Phone Care Team Providers Care Commercial Loan Officer Name Role Phone Vania Herrera APRN, CNP Primary Care Provider + Sonja Muñiz MD Unavailable [phone] Reason for Visit * Reason Onset Date Comments Prior Authorization 10/10/2024 Encounter Details Date Type Department Care Team (Late st Contact Info) Description 10/10/2024 Telephone [facility] Outpatient [address] [place] [address] Jose Barber MD [address] [place] [address] Prior Authorization Social History Tobacco Use Types [...] 3:14 PM CDT Spoke to Timmy from [facility] on follow up for requested Peer to Peer. Per Dr Barber she will review chart and attempt a Peer to Peer if she can provide additional details. * Telephone Encounter - Ingrid De León - 10/10/2024 8:39 AM CDT Auth Denied-P2P offered Ordering Provider: Internal Appointment Info: Clinic: [facility] Provider: [id number] Appt Date/Time: Friday October 11, 2024 12:00 PM Payor + Plan: [facility] CPT/Test: [address] Authorization denied through: [employer] Phone number called: website Reference number / self pay representative's name and time of call: [id number] Estimated Amount [Full Charges]: 40987.00 Reason for denial: Imaging (Positron Emissions Tomography) is indicated to check a single growth (nodule) greater than 0.8 cm (centimeters) and not larger than four cm only. Your records show that this does not apply to you. [facility] does not cover this study for screening of cancer. This finding was based on review of [facility] Clinical Policy Bulletin (CPB) Number 0071: Positron Emission Tomography (PET). Add'l Steps Taken (Pt Notified, Reached out to Provider, etc.): sent t/e to provider and summer internship Peer to Peer review offered by Payer: Yes Peer to Peer review expires: 10/20/2024 Case #: [id number] Phone #: [phone] Ordering Provider: Jose Barber MD Phys. Notified? Yes Note for ordering office: If patient wishes to cancel the appointment, please complete cancellationprocess from the patient's appointment desk. Notification Made to Patient: yes documented in this encounter Plan of Treatment Upcoming Encounters Date Type Department Care Team (Late st Contact Info) Description 01/02/2025 8:30 AM CDT Lab [facility] Oncology Services [address] [place] [phone] Jose Barber MD [address] [place] [address] Discharge Disposition: Discharged to home or Selfcare 01/02/2025 9:00 AM CDT Office Visit [facility] On[facility] Services [address] [place] [phone] Jose Barber MD [address] [place] [address] Discharge Disposition: Discharged to home or Selfcare documented as of this encounter Visit Diagnoses Not on filedocumented in this encounter Care Teams Commercial Loan Officer Relationship Specialty Start Date End Date Vania Herrera APRN, BARRIE [address] [place] [address] PCP - General Advanced Practice Nurse 08/29/24 Sonja Muñiz MD [address] [address] Consulting Physician Otolaryngology 11/10/24 documented as of this encounter
[2024-12-13 15:13] VITALS: BMI 21.3
[2024-12-13] MEDS: IRON SUCROSE COMPLEX 200 MG, IRON SUCROSE COMPLEX 100 MG in SODIUM CHLORIDE 0.9% IV 235 ML 166.67 MG IVPB (16:05)
== END 2024-12-13 14:43 | disposition home or self-care (01) ==
PROVIDERS: PCP Nurse Practitioner Family; Visit Provider Nurse Practitioner Family
DX: D50.9 Iron deficiency anemia, unspecified (principal); T45.4X5A Adverse effect of iron and its compounds, initial encounter
CPT/HCPCS: 96365; J1756; J7050

== ENCOUNTER 2024-12-27 13:17 | Outpatient (CLI) | payer OTHER, SELFPAY ==
--- OUTSIDE RECORDS SUMMARY | 2024-12-27 13:22 | XMS_ITS | Encounter Summary ---
Author Organization [facility] Address [address] [place] [address] Phone Care Team Providers Care Hog Tender Name Role Phone Vania Herrera APRN, CNP Primary Care Provider + Sonja Muñiz MD Unavailable [phone] Reason for Visit * Reason Onset Date Comments Prior Authorization 10/10/2024 Encounter Details Date Type Department Care Team (Late st Contact Info) Description 10/10/2024 Telephone [facility] Outpatient [address] [place] [address] Jose Barber MD [address] [place] [address] Prior Authorization Social History Tobacco Use Types [...] 3:14 PM CDT Spoke to Timmy from [facility] on follow up for requested Peer to Peer. Per Dr Barber she will review chart and attempt a Peer to Peer if she can provide additional details. * Telephone Encounter - Ingrid De León - 10/10/2024 8:39 AM CDT Auth Denied-P2P offered Ordering Provider: Internal Appointment Info: Clinic: [facility] PET Clinic Provider: [id number] Appt Date/Time: Friday October 11, 2024 12:00 PM Payor + Plan: MEDICAID [facility] MEDICA[facility] CPT/Test: [address] Authorization denied through: [employer] Phone number called: website Reference number / clearance representative's name and time of call: [id number] Estimated Amount [Full Charges]: 89747.00 Reason for denial: Imaging (Positron Emissions Tomography) is indicated to check a single growth (nodule) greater than 0.8 cm (centimeters) and not larger than four cm only. Your records show that this does not apply to you. [facility] does not cover this study for screening of cancer. This finding was based on review of [facility] Clinical Policy Bulletin (CPB) Number 0071: Positron Emission Tomography (PET). Add'l Steps Taken (Pt Notified, Reached out to Provider, etc.): sent t/e to provider and internal combustion engineer Peer to Peer review offered by Payer: Yes Peer to Peer review expires: 10/20/2024 Case #: [id number] Phone #: [phone] Ordering Provider: Jose Barber MD Phys. Notified? Yes Note for ordering office: If patient wishes to cancel the appointment, please complete cancellationprocess from the patient's appointment desk. Notification Made to Patient: yes documented in this encounter Plan of Treatment Upcoming Encounters Date Type Department Care Team (Late st Contact Info) Description 01/02/2025 8:30 AM CDT Lab [facility] Oncology Services [address] [place] [phone] Jose Barber MD [address] [place] [address] Discharge Disposition: Discharged to home or Selfcare 01/02/2025 9:00 AM CDT Office Visit [facility] [address] [place] [phone] Jose Barber MD [address] [place] [address] Discharge Disposition: Discharged to home or Selfcare documented as of this encounter Visit Diagnoses Not on filedocumented in this encounter Care Teams Hog Tender Relationship Specialty Start Date End Date Vania Herrera APRN, BARRIE [address] [place] [address] PCP - General Advanced Practice Nurse 08/29/24 Sonja Muñiz MD [address] [address] Consulting Physician Otolaryngology 11/10/24 documented as of this encounter
--- OUTSIDE RECORDS SUMMARY | 2024-12-27 13:22 | XMS_ITS ---
Author Organization [facility] Address [address] [place] [address] Phone Care Team Providers Care Plant Breeder Scientist Name Role Phone Vania Herrera APRN, BARRIE Primary Care Provider + Sonja Muñiz MD Unavailable [phone] [facility] Chronic Condition Monitoring Status:Enrolled (Active) Start date:11/03/2024 Enrollment date:11/03/2024 Related social drivers of health:Social Connections, Alcohol Use, Tobacco Use, Financial Resource Strain, Depression, Stress, Physical Activity, Food Insecurity, Transportation Needs, Housing Stability, Utilities Related service episodes:[facility] Service Episode (Closed) Continued Care and Services Coordination
--- OUTSIDE RECORDS SUMMARY | 2024-12-27 13:22 | XMS_ITS | Clinical Summary ---
Author Organization [facility] Address [facility] [place] [address] Care Team Providers Care Vp Site Name Role Phone Vilma Cravenn Kaitlyn CLINIC OFFICE COORDINATOR Primary Care Provider Allergies No known active [...] topic Insurance [facility] [employer] [facility] Care Teams Vp Site Relationship Specialty Start Date End Date Marely [place] [address] PCP - General NURSE PRACTITIONER 12/16/20
--- OUTSIDE RECORDS SUMMARY | 2024-12-27 13:22 | XMS_ITS | Encounter Summary ---
Author Organization [facility] Address [address] [facility] [place] [address] Phone Care Team Providers Care Theology Professor Name Role Phone Vania Herrera APRN, VISUAL DISPLAY ASSOCIATE Primary Care Provider + Sonja Muñiz MD Unavailable [phone] Encounter Details Date Type Department Care Team (Late st Contact Info) Description 11/23/2024 Results Follow-Up [facility] [address] [place] [address] Shwetha Brennan APRN, VISUAL DISPLAY ASSOCIATE [address] [place] [address] HEPATITIS C ANTIBODY Social History [...] 01/02/2025 8:30 AM CDT Lab [facility] Oncology Services [address] [place] [phone] Jose Barber MD [address] [place] [address] Discharge Disposition: Discharged to home or Selfcare 01/02/2025 9:00 AM CDT Office Visit [facility] Oncology Services [address] [place] [phone] Jose Barber MD [address] [place] [address] Discharge Disposition: Discharged to home or Selfcare [...] on filedocumented in this encounter Care Teams Theology Professor Relationship Specialty Start Date End Date Vania Herrera APRN, BARRIE [address] [place] [address] PCP - General Advanced Practice Nurse 08/29/24 Sonja Muñiz MD [address] [phone] Consulting Physician Otolaryngology 11/10/24 documented as of this encounter
--- OUTSIDE RECORDS SUMMARY | 2024-12-27 13:22 | XMS_ITS | Clinical Summary ---
Author Organization [facility] Address [address] [place] [address] Phone Care Team Providers Care Technical Operations Manager Name Role Phone Vania Herrera APRN, CONGRESSIONAL ASSISTANT Primary Care Provider + Sonja Muñiz MD Unavailable [phone] Allergies No known active allergies Medications baclofen (LIORESAL) 20 MG Tablet 3 times daily. 08/11/2024 Active buPROPion (WELLBUTRIN) 300 MG TABLET SR 24 HR XL tablet Take 300 mg by mouth every morning. 08/20/2024 Active ibuprofen (MOTRIN) 800 MG Tablet 800 mg. 08/28/2024 Active amLODIPine (NORVASC) 5 MG Tablet Take 5 mg by mouth daily. 07/18/2024 Active gabapentin (NEURONTIN) 600 MG Tablet Take 600 mg by mouth 3 times daily. 08/24/2024 Active ferrous sulfate 325 (65 Fe) MG Tablet Take 1 Tablet by mouth daily. 30 Tablet 2 09/29/2024 Active busPIRone HCl (BUSPAR) 30 MG Tablet Take 30 mg by mouth 2 times daily. 09/21/2024 Active loratadine (CLARITIN) 10 MG Tablet Take 10 mg by mouth daily. Active Vivitrol 380 MG Recon Suspension 2 10/13/2024 Active QUEtiapine (SEROquel) 100 MG Tablet 11/06/2024 Active traZODone (DESYREL) 100 MG Tablet Take 100 mg by mouth nightly as needed for Sleep. 08/18/2024 Active risperiDONE (risperDAL) 2 MG Tablet Take 2 mg by mouth 2 times daily. 09/18/2024 Active oxybutynin (DITROPAN-XL) 5 MG TABLET SR 24 HR Take 5 mg by mouth daily. 11/13/2024 Active Active Problems Problem Noted Date Diagnosed Date Cyst, dermoid, scalp and neck 10/30/2024 Ankylosing spondylitis of multiple sites in spin e 09/29/2024 Lung nodules 09/29/2024 Pain in joints of both feet 08/29/2024 Bone lesion 08/29/2024 Neck mass 08/29/2024 Primary hypertension 08/29/2024 Iron deficiency anemia 08/29/2024 Lymphadenopathy, axillary 08/29/2024 Encounters Date Type Department Care Team Description 11/23/2024 Results Follow-Up [facility] [address] [place] [phone] Shwetha Brennan APRN, BARRIE HEPATITIS C ANTIBODY 11/21/2024 Travel 11/15/2024 10:40 AM CDT Telemedicine [facility] [address] [place] [phone] Primary hypertension (Primary Dx); Need for hepatitis C screening test Discharge Disposition: Discharged to home or Selfcare 11/15/2024 Patient Outreach [facility] [address] [place] [phone] Emma Mehta, RN Patient Outreach (Patient is enrolled in the [facility] Remote Patient Monitoring Program. /) 11/13/2024 Travel 11/07/2024 Telephone [facility] [address] [place] [phone] Ric, [facility] Chronic Care Need Order 10/30/2024 11:40 AM CDT Office Visit [facility] On[facility] Services [address] [place] [phone] Jose Barber MD Neck mass (Primary Dx); Cyst, dermoid, scalp and neck; Lymphadenopathy, axillary; Ankylosing spondylitis of multiple sites in spine (HCC); Iron deficiency anemia, unspecified iron deficiency anemia type Discharge Disposition: Discharged to home or Selfcare 10/30/2024 11:20 AM CDT [facility] [address] [place] [phone] Jose Barber MD Neck mass; Lung nodules; Iron deficiency anemia due to sideropenic dysphagia Discharge Disposition: Discharged to home or Selfcare 10/30/2024 Travel 10/11/2024 11:31 AM CDT - 10/11/2024 11:59 PM CDT Hospital Encounter [facility] PET [address] [place] [address] Jose Barber MD Discharge Disposition: Discharged to home or Selfcare 10/11/2024 Travel 10/10/2024 Telephone [facility] Outpatient [address] [place] [address] Jose Barber MD Prior Authorization 09/29/2024 11:20 AM CDT Office Visit [facility] [address] [place] [address] Jose Barber MD Pain in joints of both feet (Primary Dx); Ankylosing spondylitis of multiple sites in spine (HCC); Lymphadenopathy, axillary; Neck mass; Lung nodules; Iron deficiency anemia due to sideropenic dysphagia Discharge Disposition: Discharged to home or Selfcare 09/29/2024 Travel 09/28/2024 7:21 AM CDT - 09/28/2024 11:59 PM CDT Hospital Encounter [facility] [address] [place] [address] Provider, Not On File Discharge Disposition: Discharged to home or Selfcare 09/27/2024 Travel from Last 3 Months Immunizations Immunization Administration Dates Next Due Covid-19, Mrna, Lnp-s, Pf, 3 0 Mcg/0.3 Ml Dose (Anvato) 06/13/2021,11/11/2020,10/21/2020 Influenza Vaccine, Quadrivalent, PF 02/23/2023 Family [...] Info) Description 01/02/2025 8:30 AM CD[facility] [address] [place] [phone] Jose Barber MD [address] [place] [address] Discharge Disposition: Discharged to home or Selfcare 01/02/2025 9:00 AM CDT [facility] [address] [place] [address] Jose Barber MD [address] [place] [address] Discharge Disposition: Discharged to home or Selfcare Health Maintenance Due Date Last Done Comments TdaP Immunization 1981 Hepatitis B Immunization (1 of 3 - 19+ 3-dose series) 2000 Human Papillomavirus (HPV) Immunization (1 - 3-dose SCDM series) 2008 SARS-COV-2 Immunization ( season) 2024 06/13/2021, 11/11/2020, [...] Author Chronic Disease Management Chronic Disease Management No Emma Mehta, RN Note: To effectively check in with [...] IMAGE IMPORT Routine 09/28/2024 7:22 AM CDT from Last 3 Months Results * HEPATITIS C ANTIBODY (11/23/2024 9:30 AM CDT) hepatitis C antibody 0.32 <1 S/CO 11/23/2024 3:24 PM [facility]T [facility] Comment: Signal/Cutoff ratio < 0.79 is Nondetected Signal/Cutoff ratio 0.80-0.99 is Grayzone Signal/Cutoff ratio > 0.99 is Detected Supplemental assays are recommended if signal/cutoff ratio is >/=1.00. Signal/cutoff ratio result >/= 5.00 is 97% predictive of positivity for recombinant immunoblot assay (RIBA) and will be reported to the [place] Department of Public Health as required. Blood Venipuncture / Unknown 11/23/2024 9:30 AM CDT 11/23/2024 10:15 AM CDT us Veronika Kirk PLATE CORRECTOR, CONGRESSIONAL ASSISTANT CHEMISTRY ORDERABL ES Final Result [facility] [address] [place] [address], [place] * (ABNORMAL) IRON,TRANSFERN,CALC.TIBC,%SAT (10/30/2024 11:06 AM CDT) IRON 16(L) 31 - 144 mcg/dL 10/30/2024 12:[address] [facility] TRANSFERRIN 186 174 - 364 mg/dL 10/30/2024 12:[address] TIBC, CALCULATED 233(L) 261 - 462 mcg/dL 10/30/2024 12:[address] % SATURATION * 7(L) 15 - 62 % 10/30/2024 12:[address] [facility] Blood Venipuncture / Unknown 10/30/2024 11:06 AM CDT 10/30/2024 11:06 AM CDT Jose Babrer MD CHEMISTRY ORDERABLES Fin al Result [facility] [address] [place] [address] * (ABNORMAL) CBC WITH AUTO DIFFERENTIAL (10/30/2024 11:06 AM CDT) Pathologist [facility] WBC 10.87 4.00 - 12.00 10(3)/mcL 10/30/2024 11:54 AM CDT [facility] RBC 4.33(L) 4.40 - 5.80 10(6)/mcL 10/30/2024 11:[address] [facility] HEMOGLOBIN (HGB) 10.8(L) 13.0 - 16.5 g/dL 10/30/2024 11:54 AM CDT [facility] HEMATOCRIT (HCT) 35.2(L) 38.0 - 50.0 % 10/30/2024 11:54 AM CDT [facility] MCV 81.3(L) 82.0 - 96.0 fL 10/30/2024 11:54 AM CDT [facility] MCH 24.9(L) 26.0 - 32.0 pg 10/30/2024 11:54 AM CDT [facility] MCHC 30.7(L) 31.0 - 36.0 g/dL 10/30/2024 11:54 AM CDT [facility] PLATELET COUNT 460(H) 140 - 440 10(3)/[facility] 10/30/2024 11:[address] RDW 16.3(H) 11.8 - 15.5 % 10/30/2024 11:[address] [facility] MPV 8.4 8.0 - 12.6 fL 10/30/2024 11:54 AM CDT [facility] NEUTROPHILS 65.3 40.0 - 68.0 % 10/30/2024 11:54 AM CDT [facility] LYMPHOCYTES 22.2 19.0 - 49.0 % 10/30/2024 11:54 AM CDT [facility] MONOCYTES 10.2 3.0 - 13.0 % 10/30/2024 11:54 AM CDT [facility] EOSINOPHILS 1.6 0.0 - 8.0 % 10/30/2024 11:54 AM CDT [facility] BASOPHILS 0.7 0.0 - 1.0 % 10/30/2024 11:54 AM CDT [facility] ABSOLUTE NEUTROPHILS 7.10(H) 1.40 - 5.30 10(3)/[facility] 10/30/2024 11:54 AM CDT [facility] ABSOLUTE LYMPHOCYTES 2.41 0.90 - 3.30 10(3)/[facility] 10/30/2024 11:54 AM CDT [facility] ABSOLUTE MONOCYTES 1.11(H) 0.10 - 0.90 10(3)/[facility] 10/30/2024 11:54 AM CDT [facility] ABSOLUTE EOSINOPHIL 0.17 0.00 - 0.50 10(3)/[facility] 10/30/2024 11:54 AM CDT [facility] ABSOLUTE BASOPHILS 0.08 0.00 - 0.10 10(3)/[facility] 10/30/2024 11:54 AM CDT [facility] NRBC PER 100 WBC 0 10/31/19 25 11:[address] Blood Venipuncture / Unknown 10/30/2024 11:06 AM CDT 10/30/2024 11:06 AM CDT us Jose Barber MD HEMATOLOGY ORDERABLES Fi nal Result Performing Organization Address City/[facility]/ZIP Co de Phone Number [facility] [address] [place] [address] * FERRITIN (10/30/2024 11:06 AM CDT) FERRITIN 244 22 - 274 ng/mL 10/30/2024 12:[address] [facility] Blood Venipuncture / Unknown 10/30/2024 11:06 AM CDT 10/30/2024 11:06 AM CDT us Jose Barber MD CHEMISTRY ORDERABLES Fin al Result Performing Organization Address City/[facility]/ZIP Co de Phone Number [facility] [address] [place] [address] * (ABNORMAL) CMP (COMPREHENSIVE METABOLIC PANEL) (10/30/2024 11:06 AM CDT) SODIUM 137 136 - 145 mmol/L 10/30/2024 12:[address] [facility] POTASSIUM 3.9 3.5 - 5.1 mmol/L 10/30/2024 12:[address] [facility] CHLORIDE 102 98 - 107 mmol/L 10/30/2024 12:[address] [facility] CO2, VENOUS 26 22 - 30 mmol/L 10/30/2024 12:[address] [facility] ANION GAP 12.9 <18.0 mmol/L 10/30/2024 12:[address] [facility] GLUCOSE 111(H) 70 - 99 mg/dL 10/30/2024 12:11 PM [facility] BUN 12 9 - 21 mg/dL 10/30/2024 12:11 PM [facility] CREATININE, BLOOD 0.63(L) 0.70 - 1.30 mg/dL 10/30/2024 12:11 PM [facility] BUN/CREATININE RATIO 19 12 - 20 ratio 10/30/2024 12:11 PM [facility] TOTAL PROTEIN 8.5(H) 6.0 - 8.0 g/dL 10/30/2024 12:11 PM [facility] ALBUMIN 4.0 3.5 - 5.0 g/dL 10/30/2024 12:11 PM [facility] A/G RATIO 0.9(L) 1.0 - 2.2 10/30/2024 12:11 PM [facility] CALCIUM 9.4 8.7 - 10.5 mg/dL 10/30/2024 12:11 PM [facility] T BILI 0.1(L) 0.2 - 1.2 mg/dL 10/30/2024 12:11 PM [facility] SGOT (AST) 14 <43 U/L 10/30/2024 12:11 PM [facility] SGPT (ALT) 9 <56 U/L 10/30/2024 12:11 PM [facility] ALKALINE PHOSPHATASE 72 40 - 150 U/L 10/30/2024 12:11 PM [facility] IS THE PATIENT REQUIRED TO BE FASTING? No 10/30/2024 12:11 PM [facility] GFR, ESTIMATED >60 >=60 10/30/2024 12:11 PM [facility] Comment: Creatinine Clearance is the preferred criteria for selecting drug dose adjustments in renally impaired patients. The GFR is provided as additional pertinent clinical information. GFR is reported in mL/min/1.73 sq m. Calculation based on the Chronic Kidney Disease Epidemiology Collaboration (CKD- EPI) equation refit without adjustment for race. GFR, EST. >60 >=60 025 12:11 PM CDT [facility] GFR, EST. NONAFRICAN >60 >=60 10/30/2024 12:11 PM CDT [facility] Blood Venipuncture / Unknown 10/30/2024 11:06 AM CDT 10/30/2024 11:06 AM CDT us Jose Barber MD CHEMISTRY ORDERABLES Fin al Result [facility] [address] [place] [address] * PET CT TUMOR IMAGING SKULL BASE [...] Lamont Kelly M.D. LB: LAKSH[place] Report ID: [id number] Reading Location: [place] [address] Procedure Note Lamont Kelly MD - 10/13/2024 [...] Lamont Kelly M.D. LB: LAKSHMI Report ID: [id number] Reading Location: [id number] IMPRESSION: No abnormal FDG uptake within the [...] Provider IMG CT ORDERABLES Final Res ult from Last 3 Months Insurance MEDICAID [employer] [facility] Care Teams Technical Operations Manager Relationship Specialty Start Date End Date Vania Herrera APRN, BARRIE [address] [place] [address] PCP - General Advanced Practice Nurse 08/29/24 Sonja Muñiz MD #2 [facility] [address] [phone] Consulting Physician Otolaryngology 11/10/24
[2024-12-27 13:35] VITALS: BP 100/79; PULSE 92; RESP 18; TEMP 36.6; O2SAT 95
[2024-12-27 13:46] VITALS: BMI 17.9
[2024-12-27] MEDS: IRON SUCROSE COMPLEX 300 MG in SODIUM CHLORIDE 0.9% IV 235 ML 125 MG IVPB (13:49)
--- NOTE | 2024-12-27 16:29 | PC.NURSE ---
Patient alert and oriented. IV infusion completed. IV flushed and IV cath removed intact. Denies any pain or side effects. Pressure applied to site. Dressing applied over site. Instructions given on IV care.
== END 2024-12-27 16:05 | disposition home or self-care (01) ==
PROVIDERS: PCP Family Medicine; Visit Provider Family Medicine
DX: D50.9 Iron deficiency anemia, unspecified (principal); T45.4X5A Adverse effect of iron and its compounds, initial encounter
CPT/HCPCS: 96365; 96366; J1756; J7050

== ENCOUNTER 2025-01-30 08:53 | Outpatient (CLI) | payer OTHER, SELFPAY ==
--- NOTE | ~2025-01-30 | XR_ITS ---
XR cervical spine 4-5V 01/30/2025 09:24 Indication: Cervical myofascial pain syndrome Procedure: 5 views cervical spine Comparison: No prior studies for comparison. Findings: There is levocurvature of the cervical spine. There is diffuse idiopathic skeletal hyperostosis (DISH) of the cervical spine. There is multilevel uncinate and facet hypertrophy. No acute fracture or traumatic malalignment. No significant alteration of alignment with flexion/extension. Impression: 1: Mild cervical spondylosis. 2: Diffuse idiopathic skeletal hyperostosis (DISH) of the cervical spine. Reviewed, dictated and finalized at location O. Impression: 1: Mild cervical spondylosis. 2: Diffuse idiopathic skeletal hyperostosis (DISH) of the cervical spine.
--- NOTE | ~2025-01-30 | XR_ITS ---
EXAMINATION: XR foot LT min 3V, 01/30/2025 9:00 CDT HISTORY: LEFT FT PAIN, RT HAND PAIN, CERVICAL MYOFACIAL PAIN SYNDROME COMPARISON: No comparisons available. Findings: No fracture is identified. Severe degenerative changes of the first second and third metatarsal-phalangeal joints especially of the first metatarsal-phalangeal joint with small erosions and subluxation of the proximal phalanx medially. Soft tissues unremarkable. Impression: Degenerative changes detailed above Reviewed, dictated and finalized at location A. Impression: Degenerative changes detailed above
--- NOTE | ~2025-01-30 | XR_ITS ---
EXAM/ PROCEDURE: XR hand LT min 3V - 01/30/2025 9:00 CDT HISTORY: 44 years old Male with LEFT FT PAIN, RT HAND PAIN, CERVICAL MYOFACIAL PAIN SYNDROME COMPARISON: None available TECHNIQUE: Three view(s) FINDINGS/ IMPRESSION: There are no fractures or dislocations.Joint spaces are within normal limits. Reviewed, dictated and finalized at location N.
--- OUTSIDE RECORDS SUMMARY | 2025-01-30 09:59 | XMS_ITS | Encounter Summary ---
Author Organization [facility] Address [address] [place] [address] Phone Care Team Providers Care Canary Raiser Name Role Phone Vania Herrera APRN, CNP Primary Care Provider + Sonja Muñiz MD Unavailable [phone] Reason for Visit * Reason Onset Date Comments Prior Authorization 10/10/2024 Encounter Details Date Type Department Care Team (Late st Contact Info) Description 10/10/2024 Telephone [facility] Outpatient [address] [place] [address] Jose Barber MD [address] [place] [address] Prior Authorization Social History Tobacco Use Types Packs/Day Years Used Date Smoking Tobacco: Every Day Cigarettes 0.3 25.4 Started: 08/30/1999 Smokeless Tobacco: Never Alcohol Use [...] 3:14 PM CDT Spoke to Timmy from [facility] on follow up for requested Peer to Peer. Per Dr Barber she will review chart and attempt a Peer to Peer if she can provide additional details. * Telephone Encounter - Ingrid De León - 10/10/2024 8:39 AM CDT Auth Denied-P2P offered Ordering Provider: Internal Appointment Info: Clinic: [facility] Provider: [id number] Appt Date/Time: Friday October 11, 2024 12:00 PM Payor + Plan: MEDICAID [facility] MEDICAID CPT/Test: [address] Authorization denied through: [employer] Phone number called: website Reference number / ict sales representative's name and time of call: [phone] Estimated Amount [Full Charges]: 98812.00 Reason for denial: Imaging (Positron Emissions Tomography) is indicated to check a single growth (nodule) greater than 0.8 cm (centimeters) and not larger than four cm only. Your records show that this does not apply to you. [facility] does not cover this study for screening of cancer. This finding was based on review of [facility] Clinical Policy Bulletin (CPB) Number 0071: Positron Emission Tomography (PET). Add'l Steps Taken (Pt Notified, Reached out to Provider, etc.): sent t/e to provider and civil rights attorney Peer to Peer review offered by Payer: Yes Peer to Peer review expires: 10/20/2024 Case #: [id number] Phone #: [phone] Ordering Provider: Jose Barber MD Phys. Notified? Yes Note for ordering office: If patient wishes to cancel the appointment, please complete cancellationprocess from the patient's appointment desk. Notification Made to Patient: yes documented in this encounter Plan of Treatment Upcoming Encounters Date Type Department Care Team (Late st Contact Info) Description 02/05/2025 3:30 PM CDT [facility] [address] [place] [phone] Layne Maldonado APRN, BRANCH SALES AND SERVICE REPRESENTATIVE [address] [place] [phone] Discharge Disposition: Discharged to home or Selfcare 02/06/2025 9:00 AM CDT Lab [facility] [address] [place] [phone] 02/06/2025 10:00 AM CDT Office Visit [facility] On[facility] Services [address] [place] [phone] [place] [address] [place] [phone] documented as of this encounter Visit Diagnoses Not on filedocumented in this encounter Care Teams Canary Raiser Relationship Specialty Start Date End Date Vania Herrera APRN, BRANCH SALES AND SERVICE REPRESENTATIVE [address] [place] [address] PCP - General Advanced Practice Nurse 08/29/24 Sonja Muñiz MD [address] [phone] Consulting Physician Otolaryngology 11/10/24 documented as of this encounter
--- OUTSIDE RECORDS SUMMARY | 2025-01-30 09:59 | XMS_ITS ---
Author Organization [facility] Address [address] [place] [address] Phone Care Team Providers Care Reinforcing Bar Setter Name Role Phone Vania Herrera APRN, BARRIE Primary Care Provider + Sonja Muñiz MD Unavailable [phone] [facility] Chronic Condition Monitoring Status:Enrolled (Active) Start date:11/03/2024 Enrollment date:11/03/2024 Related social drivers of health:Social Connections, Alcohol Use, Tobacco Use, Financial Resource Strain, Depression, Stress, Physical Activity, Food Insecurity, Transportation Needs, Housing Stability, Utilities Related service episodes:[facility] Service Episode (Closed) Continued Care and Services Coordination
--- OUTSIDE RECORDS SUMMARY | 2025-01-30 09:59 | XMS_ITS | Clinical Summary ---
Author Organization [facility] Address [facility] [place] [address] Care Team Providers Care Cover Mat Machine Operator Name Role Phone Vilma Cravenn Kaitlyn CARE PROCESS MANAGER Primary Care Provider Allergies No known active [...] M series) 2008 COVID-19 Vaccine (3 - 2024-2 6 season) 2025 11/11/2020, 10/21/2020 Meningococcal B Vaccine Aged Out No l onger eligible based on patient's age to complete this topic Meningococcal Vaccine Aged Out No charleen chapo eligible based on patient's age to complete this topic RSV Immunizations Under 20 Months Aged Out No longer eligible b ased on patient's age to complete this topic Insurance [employer] [facility] [address] Care Teams Cover Mat Machine Operator Relationship Specialty Start Date End Date Marely [place] [address] PCP - General NURSE PRACTITIONER 12/16/20
--- OUTSIDE RECORDS SUMMARY | 2025-01-30 09:59 | XMS_ITS | Encounter Summary ---
Author Organization [facility] Address [address] [facility] [address] Phone Care Team Providers Care Geophysical Observer Name Role Phone Vania Herrera APRN, BARRIE Primary Care Provider + Sonja Muñiz MD Unavailable [phone] Reason for Visit * Reason Comments Medication Refill Encounter Details Date Type Department Care Team (Late st Contact Info) Description 12/31/2024 Refill [facility] On[facility] [address] [place] [address] Jose Barber MD [address] [place] [address] Medication Refill Social History Tobacco Use Types Packs/Day Years Used Date Smoking Tobacco: Former Cigarettes 0.3 25.4 S tarted: 08/30/1999 Smokeless Tobacco: Never Comments:11/15/24-Quit [...] encounter Miscellaneous Notes * Telephone Encounter - Debby Jama RN - 01/01/2025 4:32 PM CDT Refused refill for now. Iron levels being checked tomorrow. documented in this encounter Plan of Treatment Upcoming Encounters Date Type Department Care Team (Late st Contact Info) Description 02/05/2025 3:30 PM CDT EMG [facility] [address] [place] [address] Layne Maldonado APRN, BUSINESS ANALYST [address] [place] [phone] Discharge Disposition: Discharged to home or Selfcare 02/06/2025 9:00 AM CDT Lab [facility] [place] [address] [place] [phone] 02/06/2025 10:00 AM CDT Office Visit [facility] [address] [place] [phone] [place] [address] [place] [phone] documented as of this encounter Goals Goal Patient Goal Type Associated Problems Recent Progress Patient-Stated? Author Chronic Disease Management Chronic Disease Management Emma Wray, RN Note: To effectively check in with [facility]'s Remote Patient Monitoring Hypertension program via text on Wednesday and Wednesday at 2:30. pm. documented as of this encounter Visit Diagnoses Not on filedocumented in this encounter Care Teams Geophysical Observer Relationship Specialty Start Date End Date Vania Herrera APRN, BUSINESS ANALYST [address] [place] [address] PCP - General Advanced Practice Nurse 08/29/24 Sonja Muñiz MD [address] [facility] [address] [phone] Consulting Physician Otolaryngology 11/10/24 documented as of this encounter
--- OUTSIDE RECORDS SUMMARY | 2025-01-30 09:59 | XMS_ITS | Clinical Summary ---
Author Organization [facility] Address [address] [place] [address] Phone Care Team Providers Care Typewriter Mechanic Name Role Phone Vania Herrera APRN, CYBER SPECIAL AGENT Primary Care Provider + Sonja Muñiz MD Unavailable [phone] Allergies No known active allergies Medications [...] Encounters Date Type Department Care Team Description 01/22/2025 Transcribe Orders [facility] Central Scheduling [address] [place] [address] Layne Maldonado APRN, CNP Cervical radiculopathy (Primary Dx); Right hand pain; Right hand weakness 01/01/2025 Travel 12/31/[address] [facility] Services [address] [place] [address] Jose Barber MD Medication Refill 11/23/2024 Results Follow-Up [facility] [address] [place] [phone] Shwetha Brennan APRN, CNP HEPATITIS C ANTIBODY 11/21/2024 Travel 11/15/2024 10:40 AM CDT Telemedicine [facility] [address] [place] [phone] Primary hypertension (Primary Dx); Need for hepatitis C screening test Discharge Disposition: Discharged to home or Selfcare 11/15/2024 Patient Outreach [facility] [address] [place] [phone] Emma Mehta, RN Patient Outreach (Patient is enrolled in the [facility] Remote Patient Monitoring Program. /) 11/13/2024 Travel 11/07/2024 Telephone [facility] [address] [place] [address] Ric, [employer] Chronic Care Need Order 10/30/2024 11:40 AM CDT [facility] [address] [place] [phone] Jose Barber MD Neck mass (Primary Dx); Cyst, dermoid, scalp and neck; Lymphadenopathy, axillary; Ankylosing spondylitis of multiple sites in spine (HCC); Iron deficiency anemia, unspecified iron deficiency anemia type Discharge Disposition: Discharged to home or Selfcare 10/30/2024 11:20 AM CDT [facility] [address] [place] [phone] Jose Barber MD Neck mass; Lung nodules; Iron deficiency anemia due to sideropenic dysphagia Discharge Disposition: Discharged to home or Selfcare 10/30/2024 Travel from Last 3 Months Immunizations Immunization Administration Dates Next Due Covid-19, Mrna, Lnp-s, Pf, 3 0 Mcg/0.3 Ml Dose ([employer]) 06/13/2021,11/11/2020,10/21/2020 Influenza Vaccine, Quadrivalent, PF 02/23/2023 Family History Medical History Relation Name Comments Colon Cancer Father Cancer Maternal Aunt Cancer Maternal Grandmother Relation Name Status Comments Father Alive Maternal Aunt Maternal Grandmother Mother Alive Social History Tobacco Use Types Packs/Day Years Used Date Smoking Tobacco: Former Cigarettes 0.3 25.4 S tarted: 08/30/1999 Smokeless Tobacco: Never Tobacco [...] Info) Description 02/05/2025 3:30 PM CDT [facility] [address] [place] [phone] Layne Maldonado, JACQUELINE, CYBER SPECIAL AGENT [address] [place] [address] Discharge Disposition: Discharged to home or Selfcare 02/06/2025 9:00 AM CDT [facility] [address] [place] [phone] 02/06/2025 10:00 AM CDT Office Visit [facility] [place] [facility] [address] [place] [phone] Jose Barber MD [address] [place] [phone] Health Maintenance Due Date Last Done Comments TdaP Immunization 1981 Hepatitis B Immunization (1 of 3 - 19+ 3-dose series) 2000 Human Papillomavirus (HPV) Immunization (1 - 3-dose SCDM series) 2008 Influenza Immunization (#1) 2025 02/23/2023 SARS-COV-2 Immunization ( season) 2025 06/13/2021, 11/11/2020, 10/21/2020 Respiratory Syncytial Virus (RSV) Immunization (Adult) (1 [...] Disease Management Chronic Disease Management No Emma Mehta RN Note: To effectively check in with [...] Iron deficiency anemia due to sideropenic dysphagia from Last 3 Months Results * HEPATITIS C ANTIBODY (11/23/2024 9:30 AM CDT) Pathologist [facility] hepatitis C antibody 0.32 <1 S/CO 11/23/2024 3:24 PM CDT [facility] Comment: Signal/Cutoff ratio < 0.79 is Nondetected Signal/Cutoff ratio 0.80-0.99 is Grayzone Signal/Cutoff ratio > 0.99 is Detected Supplemental assays are recommended if signal/cutoff ratio is >/=1.00. Signal/cutoff ratio result >/= 5.00 is 97% predictive of positivity for recombinant immunoblot assay (RIBA) and will be reported to the [place] Department of Public Health as required. Blood Venipuncture / Unknown 11/23/2024 9:30 AM CDT 11/23/2024 10:15 AM CDT us Veronika Kirk CONTINUOUS DRYOUT OPERATOR HELPER, CYBER SPECIAL AGENT CHEMISTRY ORDERABL ES Final Result Performing Organization Address City/[facility]/ZIP Co de Phone Number [facility] [address] [place] [address], [place] * (ABNORMAL) IRON,TRANSFERN,CALC.TIBC,%SAT (10/30/2024 11:06 AM CDT) Pathologist [facility] IRON 16(L) 31 - 144 mcg/dL 10/30/2024 12:11 PM CDT [facility] TRANSFERRIN 186 174 - 364 mg/dL 10/30/2024 12:11 PM CDT [facility] TIBC, CALCULATED 233(L) 261 - 462 mcg/dL 10/30/2024 12:11 PM CDT [facility] % SATURATION * 7(L) 15 - 62 % 10/30/2024 12:11 PM CDT [facility] Blood Venipuncture / Unknown 10/30/2024 11:06 AM CDT 10/30/2024 11:06 AM CDT us Jose Barber MD CHEMISTRY ORDERABLES Fin al Result Performing Organization Address City/[facility]/ZIP Co de Phone Number [facility] [place] [address] * (ABNORMAL) CBC WITH AUTO DIFFERENTIAL (10/30/2024 11:06 AM CDT) [facility] WBC 10.87 4.00 - 12.00 10(3)/mcL 10/30/2024 11:54 AM CDT [facility] RBC 4.33(L) 4.40 - 5.80 10(6)/[facility] 10/30/2024 11:54 AM CDT [facility] HEMOGLOBIN (HGB) 10.8(L) 13.0 - 16.5 g/dL 10/30/2024 11:54 AM CDT [facility] HEMATOCRIT (HCT) 35.2(L) 38.0 - 50.0 % 10/30/2024 11:54 AM CDT [facility] MCV 81.3(L) 82.0 - 96.0 fL 10/30/2024 11:54 AM CDT [facility] MCH 24.9(L) 26.0 - 32.0 pg 10/30/2024 11:54 AM CDT [facility] MCHC 30.7(L) 31.0 - 36.0 g/dL 10/30/2024 11:54 AM CDT [facility] PLATELET COUNT 460(H) 140 - 440 10(3)/[facility] 10/30/2024 11:54 AM CDT [facility] RDW 16.3(H) 11.8 - 15.5 % 10/30/2024 11:54 AM CDT [facility] MPV 8.4 8.0 - 12.6 fL 10/30/2024 11:54 AM CDT [facility] NEUTROPHILS 65.3 40.0 - 68.0 % 10/30/2024 11:54 AM CDT [facility] LYMPHOCYTES 22.2 19.0 - 49.0 % 10/30/2024 11:54 AM CDT [facility] MONOCYTES 10.2 3.0 - 13.0 % 10/30/2024 11:54 AM CDT [facility] EOSINOPHILS 1.6 0.0 - 8.0 % 10/30/2024 11:54 AM CDT [facility] BASOPHILS 0.7 0.0 - 1.0 % 10/30/2024 11:54 AM CDT [facility] ABSOLUTE NEUTROPHIL[facility] 7.10(H) 1.40 - 5.30 10(3)/[facility] 10/30/2024 11:54 AM CDT [facility] ABSOLUTE LYMPHOCYTES 2.41 0.90 - 3.30 10(3)/[facility] 10/30/2024 11:54 AM CDT [facility] ABSOLUTE MONOCYTES 1.11(H) 0.10 - 0.90 10(3)/[facility] 10/30/2024 11:54 AM CDT [facility] ABSOLUTE EOSINOPHIL 0.17 0.00 - 0.50 10(3)/[facility] 10/30/2024 11:54 AM CDT [facility] ABSOLUTE BASOPHILS 0.08 0.00 - 0.10 10(3)/[facility] 10/30/2024 11:54 AM CDT [facility] NRBC PER 100 WBC 0 10/31/19 25 11:54 AM CDT [facility] Blood Venipuncture / Unknown 10/30/2024 11:06 AM CDT 10/30/2024 11:06 AM CDT Jose Barber MD HEMATOLOGY ORDERABLES nal Result [facility] [place] [address] * FERRITIN (10/30/2024 11:06 AM CDT) FERRITIN 244 22 - 274 ng/mL 10/30/2024 12:27 PM CDT [facility] Blood Venipuncture / Unknown 10/30/2024 11:06 AM CDT 10/30/2024 11:06 AM CDT us Jose Barber MD CHEMISTRY ORDERABLES Fin al Result [facility] [place] [address] * (ABNORMAL) CMP (COMPREHENSIVE METABOLIC PANEL) (10/30/2024 11:06 AM CDT) SODIUM 137 136 - 145 mmol/L 10/30/2024 12:11 PM CDT [facility] POTASSIUM 3.9 3.5 - 5.1 mmol/L 10/30/2024 12:11 PM CDT [facility] CHLORIDE 102 98 - 107 mmol/L 10/30/2024 12:11 PM CDT [facility] CO2, VENOUS 26 22 - 30 mmol/L 10/30/2024 12:11 PM CDT [facility] ANION GAP 12.9 <18.0 mmol/L 10/30/2024 12:11 PM CDT [facility] GLUCOSE 111(H) 70 - 99 mg/dL 10/30/2024 12:11 PM CDT [facility] BUN 12 9 - 21 mg/dL 10/30/2024 12:11 PM CDT [facility] CREATININE, BLOOD 0.63(L) 0.70 - 1.30 mg/dL 10/30/2024 12:11 PM CDT [facility] BUN/CREATININE RATIO 19 12 - 20 ratio 10/30/2024 12:11 PM CDT [facility] TOTAL PROTEIN 8.5(H) 6.0 - 8.0 g/dL 10/30/2024 12:11 PM CDT [facility] ALBUMIN 4.0 3.5 - 5.0 g/dL 10/30/2024 12:11 PM CDT [facility] A/G RATIO 0.9(L) 1.0 - 2.2 10/30/2024 12:11 PM CDT [facility] CALCIUM 9.4 8.7 - 10.5 mg/dL 10/30/2024 12:11 PM CDT [facility] T BILI 0.1(L) 0.2 - 1.2 mg/dL 10/30/2024 12:11 PM CDT [facility] SGOT (AST) 14 <43 U/L 10/30/2024 12:11 PM CDT [facility] SGPT (ALT) 9 <56 U/L 10/30/2024 12:11 PM CDT [facility] ALKALINE PHOSPHATASE 72 40 - 150 U/L 10/30/2024 12:11 PM CDT [facility] IS THE PATIENT REQUIRED TO BE FASTING? No 10/30/2024 12:11 PM CDT [facility] GFR, ESTIMATED >60 >=60 10/30/2024 12:11 PM CDT [facility] Comment: Creatinine Clearance is the preferred criteria for selecting drug dose adjustments in renally impaired patients. The GFR is provided as additional pertinent clinical information. GFR is reported in mL/min/1.73 sq m. Calculation based on the Chronic Kidney Disease Epidemiology Collaboration (CKD- EPI) equation refit without adjustment for race. GFR, EST. >60 >=60 025 12:11 PM CDT [facility] GFR, EST. NONAFRICAN >60 >=60 10/30/2024 12:11 PM CDT [facility] Blood Venipuncture / Unknown 10/30/2024 11:06 AM CDT 10/30/2024 11:06 AM CDT Jose Barber MD CHEMISTRY ORDERABLES Fin al Result [facility] [address] [place] [address] from Last 3 Months Insurance MEDICAID [employer] [facility] Care Teams Typewriter Mechanic Relationship Specialty Start Date End Date Vania Herrera APRN, CYBER SPECIAL AGENT [address] [place] [address] PCP - General Advanced Practice Nurse 08/29/24 Sonja Muñiz MD #2 [facility] [phone] Consulting Physician Otolaryngology 11/10/24
== END 2025-01-30 08:54 | disposition home or self-care (01) ==
LOC: CHSIMG 08:55
PROVIDERS: PCP Nurse Practitioner Family; Visit Provider Nurse Practitioner Adult Health
DX: M79.642 Pain in left hand (principal); M20.32 Hallux varus (acquired), left foot; M79.641 Pain in right hand; M79.18 Myalgia, other site; R29.898 Other symptoms and signs involving the musculoskeletal system; M54.12 Radiculopathy, cervical region; M54.2 Cervicalgia; R93.6 Abnormal findings on diagnostic imaging of limbs; M47.812 Spondylosis without myelopathy or radiculopathy, cervical region; M48.12 Ankylosing hyperostosis [Forestier], cervical region
CPT/HCPCS: 72050; 73130; 73630

== ENCOUNTER 2025-02-05 13:17 | Outpatient (CLI) | payer OTHER, SELFPAY ==
--- NOTE | ~2025-02-05 | XR_ITS ---
X-rays right hand Indication: Pain, M 79.641 Comparison: None Technique: 3 views right hand Findings/Impression: 1. No fracture or dislocation right hand. 2. 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 3. Associated radiocarpal degenerative changes Reviewed, dictated and finalized at location R.
--- OUTSIDE RECORDS SUMMARY | 2025-02-05 13:44 | XMS_ITS ---
Author Organization [facility] Address [address] [place] [address] Phone Care Team Providers Care Pin Ball Machine Mechanic Name Role Phone Vania Herrera APRN, BARRIE Primary Care Provider + Sonja Muñiz MD Unavailable [phone] [facility] Chronic Condition Monitoring Status:Enrolled (Active) Start date:11/03/2024 Enrollment date:11/03/2024 Related social drivers of health:Social Connections, Alcohol Use, Tobacco Use, Financial Resource Strain, Depression, Stress, Physical Activity, Food Insecurity, Transportation Needs, Housing Stability, Utilities Related service episodes:[facility] Service Episode (Closed) Continued Care and Services Coordination
--- OUTSIDE RECORDS SUMMARY | 2025-02-05 13:44 | XMS_ITS | Clinical Summary ---
Author Organization [facility] Address [facility] [place] [address] Care Team Providers Care Life Guard Name Role Phone Vilma Cravenn Kaitlyn FOOD PREPARATION KITCHEN AIDE Primary Care Provider Allergies No known active [...] Insurance [employer] [facility] Care Teams Life Guard Relationship Specialty Start Date End Date Mare[place] [address] PCP - General NURSE PRACTITIONER 12/16/20
--- OUTSIDE RECORDS SUMMARY | 2025-02-05 13:44 | XMS_ITS | Encounter Summary ---
Author Organization [facility] Address [address] [place] [address] Phone Care Team Providers Care Dowel Machine Operator Name Role Phone Vania Herrera APRN, CNP Primary Care Provider + Sonja Muñiz MD Unavailable [phone] Reason for Visit * Reason Onset Date Comments Prior Authorization 10/10/2024 Encounter Details Date Type Department Care Team (Late st Contact Info) Description 10/10/2024 Telephone [facility] Outpatient [address] [place] [address] Jose Barber MD [address] [place] [address] Prior Authorization Social History Tobacco Use Types [...] 3:14 PM CDT Spoke to Timmy from [facility] on follow up for requested Peer to Peer. Per Dr Barber she will review chart and attempt a Peer to Peer if she can provide additional details. * Telephone Encounter - Ingrid De León - 10/10/2024 8:39 AM CDT Auth Denied-P2P offered Ordering Provider: Internal Appointment Info: Clinic: [facility] PET Clinic Provider: [id number] Appt Date/Time: Friday October 11, 2024 12:00 PM Payor + Plan: MEDICAID [facility] CPT/Test: [address] Authorization denied through: [employer] Phone number called: website Reference number / union representative's name and time of call: [id number] Estimated Amount [Full Charges]: 87685.00 Reason for denial: Imaging (Positron Emissions Tomography) is indicated to check a single growth (nodule) greater than 0.8 cm (centimeters) and not larger than four cm only. Your records show that this does not apply to you. [facility] does not cover this study for screening of cancer. This finding was based on review of [facility] Clinical Policy Bulletin (CPB) Number 0071: Positron Emission Tomography (PET). Add'l Steps Taken (Pt Notified, Reached out to Provider, etc.): sent t/e to provider and returned goods inspector Peer to Peer review offered by Payer: Yes Peer to Peer review expires: 10/20/2024 Case #: [id number] Phone #: [phone] Ordering Provider: Jose Barber MD Phys. Notified? Yes Note for ordering office: If patient wishes to cancel the appointment, please complete cancellationprocess from the patient's appointment desk. Notification Made to Patient: yes documented in this encounter Plan of Treatment Upcoming Encounters Date Type Department Care Team (Late st Contact Info) Description 02/05/2025 3:30 PM CDT [facility] Neurosciences Clinic [address] [place] [phone] Layne Maldonado APRN, PATTERN CHAIN BUILDER [address] [place] [address] Discharge Disposition: Discharged to home or Selfcare 02/06/2025 9:00 AM CDT Lab [facility] [place] [facility] [address] [place] [phone] 02/06/2025 10:00 AM CDT Office Visit [facility] Oncology Services [address] [place] [phone] [place] [address] [place] [phone] documented as of this encounter Visit Diagnoses Not on filedocumented in this encounter Care Teams Dowel Machine Operator Relationship Specialty Start Date End Date Vania Herrera APRN, PATTERN CHAIN BUILDER [address] [place] [address] PCP - General Advanced Practice Nurse 08/29/24 Sonja Muñiz MD [address] [phone] Consulting Physician Otolaryngology 11/10/24 documented as of this encounter
--- OUTSIDE RECORDS SUMMARY | 2025-02-05 13:44 | XMS_ITS | Clinical Summary ---
Author Organization [facility] Address [address] [place] [address] Phone Care Team Providers Care Furnace Utility Operator Name Role Phone Vania Herrera APRN, CONSULTING SALES EXECUTIVE Primary Care Provider + Sonja Muñiz MD Unavailable [phone] Allergies No known active allergies Medications [...] Department Care Team Description 01/22/2025 Transcribe Orders [facility] Central Scheduling [address] [place] [address] Layne Maldonado APRN, CNP Cervical radiculopathy (Primary Dx); Right hand pain; Right hand weakness 01/01/2025 Travel 12/31/2024 Refill [facility] On[facility] Services [address] [place] [address] Jose Barber MD Medication Refill 11/23/2024 Results Follow-Up [facility] [address] [place] [phone] Shwetha Brennan APRN, CNP HEPATITIS C ANTIBODY 11/21/2024 Travel 11/15/2024 10:40 AM CDT Telemedicine [facility] [address] [place] [phone] Primary hypertension (Primary Dx); Need for hepatitis C screening test Discharge Disposition: Discharged to home or Selfcare 11/15/2024 Patient Outreach [facility] [address] [place] [phone] Emma Mehta, RN Patient Outreach (Patient is enrolled in the [facility] Remote Patient Monitoring Program. /) 11/13/2024 Travel 11/07/2024 Telephone [facility] [address] [place] [address] Ric, [employer] Chronic Care Need Order from Last 3 Months Immunizations Immunization Administration Dates Next Due Covid-19, Mrna, Lnp-s, Pf, 3 0 Mcg/0.3 Ml Dose ([employer]) 06/13/2021,11/11/2020,10/21/2020 Influenza Vaccine, Quadrivalent, PF 02/23/2023 Family [...] Info) Description 02/05/2025 3:30 PM CDT [facility] Neurosciences Clinic [address] [place] [phone] Layne Maldonado, PURCHASING COORDINATOR, CONSULTING SALES EXECUTIVE [address] [place] [address] Discharge Disposition: Discharged to home or Selfcare 02/06/2025 9:00 AM CDT [facility] [address] [place] [phone] 02/06/2025 10:00 AM CDT Office Visit [facility] Oncology Services [address] [place] [phone] Jose Barber MD [address] [place] [phone] Health Maintenance Due Date Last Done Comments [...] CDT Need for hepatitis C screening test from Last 3 Months Results * HEPATITIS C ANTIBODY (11/23/2024 9:30 AM CDT) hepatitis C antibody 0.32 <1 S/CO 11/23/2024 3:24 PM CDT [facility] Comment: Signal/Cutoff ratio < 0.79 is Nondetected Signal/Cutoff ratio 0.80-0.99 is Grayzone Signal/Cutoff ratio > 0.99 is Detected Supplemental assays are recommended if signal/cutoff ratio is >/=1.00. Signal/cutoff ratio result >/= 5.00 is 97% predictive of positivity for recombinant immunoblot assay (RIBA) and will be reported to the [place] Department of Public Health as required. Blood Venipuncture / Unknown 11/23/2024 9:30 AM CDT 11/23/2024 10:15 AM CDT us Veronika Kirk APRN, CONSULTING SALES EXECUTIVE CHEMISTRY ORDERABL ES Final Result [facility] [address] [place] [address], [place] from Last 3 Months Insurance MEDICAID [employer] [facility] Care Teams Furnace Utility Operator Relationship Specialty Start Date End Date Vania Herrera APRN, CONSULTING SALES EXECUTIVE [address] [place] [address] PCP - General Advanced Practice Nurse 08/29/24 Sonja Muñiz MD #2 [facility] [address] [phone] Consulting Physician Otolaryngology 11/10/24
--- OUTSIDE RECORDS SUMMARY | 2025-02-05 13:44 | XMS_ITS | Encounter Summary ---
Author Organization [facility] Address [address] [facility] [place] [address] Phone Care Team Providers Care Insulation Sprayer Name Role Phone Vania Herrera APRN, BARRIE Primary Care Provider + Sonja Muñiz MD Unavailable [phone] Reason for Visit * Reason Comments Medication Refill Encounter Details Date Type Department Care Team (Late st Contact Info) Description 12/31/2024 [facility]ill [facility] On[facility] Services [address] [place] [address] Jose Barber MD [address] [place] [address] Medication Refill Social History Tobacco [...] Info) Description 02/05/2025 3:30 PM CDT EM[facility] Neurosciences Clinic [address] [place] [address] Layne Maldonado APRN, MANAGER DRIVE [address] [place] [address] Discharge Disposition: Discharged to home or Selfcare 02/06/2025 9:00 AM CDT Lab [facility] [place] [facility] [address] [place] [phone] 02/06/2025 10:00 AM CDT Office Visit [facility] [place] [address] [place] [address] [place] [address] [place] [phone] documented as of this encounter Goals Goal Patient Goal Type Associated Problems Recent Progress Patient-Stated? Author Chronic Disease Management Chronic Disease Management Emma Wray, RN Note: To effectively check in with [facility] Remote Patient Monitoring Hypertension program via text on Wednesday and Wednesday at 2:30. pm. documented as of this encounter Visit Diagnoses Not on filedocumented in this encounter Care Teams Insulation Sprayer Relationship Specialty Start Date End Date Vania Herrera APRN, MANAGER DRIVE [address] [place] [address] PCP - General Advanced Practice Nurse 08/29/24 Sonja Muñiz MD [address] [facility] [address] [phone] Consulting Physician Otolaryngology 11/10/24 documented as of this encounter
== END 2025-02-05 13:18 | disposition home or self-care (01) ==
LOC: CHSIMG 13:18
PROVIDERS: PCP Nurse Practitioner Family; Visit Provider Nurse Practitioner Family
DX: M79.642 Pain in left hand (principal); M19.031 Primary osteoarthritis, right wrist
CPT/HCPCS: 73130

== ENCOUNTER 2025-02-17 12:04 | Outpatient (CLI) | payer OTHER, SELFPAY ==
--- NOTE | ~2025-02-17 | MR_ITS ---
EXAMINATION: MR cervical spine wo con, 02/17/2025 13:00 CDT HISTORY: stiffness in neck x2 years, loss of ROM COMPARISON: None TECHNIQUE: Multi-planar multi-sequence images were obtained of the cervical spine without contrast per protocol. FINDINGS: Mild loss of vertebral height throughout. The bone marrow demonstrates heterogeneous signal with involvement of the vertebrae diffusely and the posterior elements with abnormal heterogeneous signal also noted in the clivus. No acute fracture is identified. Posterior alignment is intact The cerebellar tonsils are normal in location. There is no abnormal signal in the cord Moderate to severe loss of disc height throughout with moderate disc desiccation and endplate degenerative changes The soft tissues demonstrate partially imaged large cystic within the subcutaneous tissues the largest left side 5.2 x 5 cm. Partially imaged complex appearing solid focus noted in the right anterior subcutaneous tissues were incompletely evaluated. There are prominent lymph nodes also noted bilaterally. Appropriate flow voids are maintained C2-3: No canal or foraminal stenosis C3-4: No canal or foraminal stenosis C4-5: Circumferential bulging of the disc with mild bilateral foramina stenosis, no canal stenosis. C5-6: Circumferential bulging of the disc with mild foramina stenosis, no canal stenosis. C6-7: No canal or foraminal stenosis C7-T1: No canal or foraminal stenosis IMPRESSION: 1. Minimal degenerative changes. 2. Multifocal areas of abnormal signal throughout the bone marrow concerning for metastatic disease. Nuclear medicine bone scan recommended. 3. Complex cystic subcutaneous lesions detailed above incompletely characterized. Contrast-enhanced CT is recommended Reviewed, dictated and finalized at location P. IMPRESSION: 1. Minimal degenerative changes. 2. Multifocal areas of abnormal signal throughout the bone marrow concerning fo r metastatic disease. Nuclear medicine bone scan recommended. 3. Complex cystic subcutaneous lesions detailed above incompletely characterize d. Contrast-enhanced CT is recommended
--- OUTSIDE RECORDS SUMMARY | 2025-02-17 12:07 | XMS_ITS | Clinical Summary ---
Author Organization [facility] Address Critical access hospital[address] [place] [address] Care Team Providers Care Outsole Cutter Machine Name Role Phone Vilma Cravenn Kaitlyn TETRYL DISSOLVER OPERATOR Primary Care Provider Allergies No known active [...] Insurance [facility] [facility] [employer] [facility] Care Teams Outsole Cutter Machine Relationship Specialty Start Date End Date Mare[place] [address] PCP - General NURSE PRACTITIONER 12/16/20
--- OUTSIDE RECORDS SUMMARY | 2025-02-17 12:07 | XMS_ITS | Clinical Summary ---
Author Organization [facility] Address [address] [place] [address] Care Team Providers Care Supervisor Jewelry Department Name Role Phone Unavailable Primary Care Provider Unavailabl e Source Comments [facility],non-owned Affiliates and Associated Physician Practices is amultiple site organization consisting of ambulatory clinics and hospital sitesin [place] and [place]. This disclosure is being madepursuant to the Care Everywhere program and may not contain all information available regarding this patient. Last updated 18.[facility] Encounters Date Type Department Care Team Description 02/07/2025 Transcribe Orders [facility] Rheumatology [address] [place] [address], [address] [place] [address] Group, [facility] Ankylosing spondylitis, unspecified site of spine (HCC) ; Pain in joints of both feet 02/06/2025 Telephone [facility] Rheumat[facility] [address] [place] [address] Karmen Perales MD Referral from Last 3 Months Social History Tobacco Use Types Packs/Day Years Used Date Smoking Tobacco: Never Assessed Sex and Gender Information Value Date Recorded Sex Assigned at Not on file Legal Sex Male 5:33 AM ELECTRO OPTICS ENGINEER Gender Identity Not on file Sexual Orientation Not on file Plan of Treatment Upcoming Encounters Date Type Department Care Team (Late st Contact Info) Description 03/22/2025 9:40 AM ELECTRO OPTICS ENGINEER Office Visit [facility] Rheumatology [address] [place], [place] [address]ev[facility], [address] [place] [address] Leandro Higgins DO [address] [facility] [address] [place] [address] Health Maintenance Due Date Last Done Comments LIPID TESTING 1981 HIV SCREENING 1996 HEPATITIS C SCREENING 09/06/1999 DTAP/TDAP/TD VACCINES (1 - Tdap) 2000 HEPATITIS B VACCINE (1 of 3 - 19+ 3-dose series) 2000 HPV VACCINE (1 - 3-dose SCDM series) 2008 DEPRESSION SCREENING 05/17/2024 COVID-19 VACCINE (1 - 2023-2 5 season) 2025 INFLUENZA VACCINE (#1) 2025 ZOSTER VACCINE (1 of 2) 09/11/2031 HIB VACCINE Aged Out No longer eligi ble based on patient's age to complete this topic MENINGOCOCCAL (Group B) VACC INE SHARED DECISION-MAKING Aged Out No longer eligibl e based on patient's age to complete this topic MENINGOCOCCAL GROUPS A/C/Y/W VACCINE Aged Out No longer eligible b ased on patient's age to complete this topic PNEUMOCOCCAL VACCINE Aged Out No long er eligible based on patient's age to complete this topic
--- OUTSIDE RECORDS SUMMARY | 2025-02-17 12:07 | XMS_ITS | Encounter Summary ---
Author Organization [facility] Address [address] [place] [address] Phone Care Team Providers Care Forepart Laster Name Role Phone Vania Herrera APRN, BARRIE Primary Care Provider + Sonja Muñiz MD Unavailable [phone] Reason for Visit * Reason Onset Date Comments Prior Authorization 10/10/2024 Encounter Details Date Type Department Care Team (Late st Contact Info) Description 10/10/2024 Telephone [facility] Outpatient [address] [place] [address] Jose Barber MD [address] [place] [address] Prior Authorization Social History Tobacco Use Types Packs/Day Years Used Date Smoking Tobacco: Every Day Cigarettes 0.3 25.5 Started: 08/30/1999 Smokeless Tobacco: Never Alcohol Use [...] 10/10/2024 4:59 PM CDT Spoke with Sidra M. Peer to peer scheduled for Wednesday10/11/24 at 8:[address] Juno Garland. Gave Sidra Barber's cell phone and Dr. Barber made aware. * Telephone Encounter - Elvia Goldstein RN - 10/10/2024 3:14 PM CDT Spoke to Timmy from [facility] on follow up for requested Peer to Peer. Per Dr Barber she will review chart and attempt a Peer to Peer if she can provide additional details. * Telephone Encounter - Ingrid De León - 10/10/2024 8:39 AM CDT Auth Denied-P2P offered Ordering Provider: Internal Appointment Info: Clinic: [facility] PET Clinic Provider: [id number] Appt Date/Time: Friday October 11, 2024 12:00 PM Payor + Plan: [facility]ICAID [facility] CPT/Test: [address] Authorization denied through: [employer] Phone number called: website Reference number / medical claims representative's name and time of call: [id number] Estimated Amount [Full Charges]: 20565.00 Reason for denial: Imaging (Positron Emissions Tomography) is indicated to check a single growth (nodule) greater than 0.8 cm (centimeters) and not larger than four cm only. Your records show that this does not apply to you. [facility] does not cover this study for screening of cancer. This finding was based on review of [facility] Clinical Policy Bulletin (CPB) Number 0071: Positron Emission Tomography (PET). Add'l Steps Taken (Pt Notified, Reached out to Provider, etc.): sent t/e to provider and embroidery patternmaker Peer to Peer review offered by Payer: Yes Peer to Peer review expires: 10/20/2024 Case #: [id number] Phone #: [phone] Ordering Provider: Jose Barber MD Phys. Notified? Yes Note for ordering office: If patient wishes to cancel the appointment, please complete cancellationprocess from the patient's appointment desk. Notification Made to Patient: yes documented in this encounter Plan of Treatment Upcoming Encounters Date Type Department Care Team (Latest Contact Info) Description 03/15/2025 10:00 AM CDT Office Visit [facility] - Gastroenterology [facility] [address] [place] [address] Rc Whitt MD [address] [address] 05/01/2025 10:20 AM SHOPPING INVESTIGATOR Lab [facility] Oncology Services [address] [place] [address] Jose Barber MD [address] [place] [address] Discharge Disposition: Discharged to home or Selfcare 05/08/2025 9:00 AM SHOPPING INVESTIGATOR Office Visit [facility] Oncology Services [address] [place] [phone] Jose Barber MD [address] [place] [address] Discharge Disposition: Discharged to home or Selfcare documented as of this encounter Visit Diagnoses Not on filedocumented in this encounter Care Teams Forepart Laster Relationship Specialty Start Date End Date Vania Herrera APRN, BARRIE [address] [place] [address] PCP - General Advanced Practice Nurse 08/29/24 Sonja Muñiz MD [address] [facility] [address] [phone] Consulting Physician Otolaryngology 11/10/24 documented as of this encounter
--- OUTSIDE RECORDS SUMMARY | 2025-02-17 12:07 | XMS_ITS | Clinical Summary ---
Author Organization [facility] Address [address] [place] [address] Phone Care Team Providers Care Job Boss Name Role Phone Vania Herrera APRN, WILDLIFE BIOSTATION RESEARCH ECOLOGIST Primary Care Provider + Sonja Muñiz MD Unavailable [phone] Allergies No known active allergies Medications [...] Vivitrol 380 MG Recon Suspension 2 10/13/2024 Ac tive QUEtiapine (SEROquel) 100 MG Tablet 11/06/2024 Active traZODone (DESYREL) 100 MG Tablet Take 100 mg by mouth nightly as needed for Sleep. 08/18/2024 Active risperiDONE (risperDAL) 2 MG Tablet Take 2 mg by mouth 2 times daily. 09/18/2024 Active oxybutynin (DITROPAN-XL) 5 MG TABLET SR 24 HR Take 5 mg by mouth daily. 11/13/2024 Active meloxicam (MOBIC) 15 MG Tablet Take 1 Tablet by mouth daily. 01/18/2025 Active ondansetron (ZOFRAN-ODT) 4 MG TABLET DISPERSIBLE Take 4 mg by mouth. 11/21/2024 Active Active Problems Problem Noted Date Diagnosed Date Nausea and vomiting 02/06/2025 Cyst, dermoid, scalp and neck 10/30/2024 Ankylosing spondylitis of multiple sites in spin e 09/29/2024 Lung nodules 09/29/2024 Pain in joints of both feet 08/29/2024 Bone lesion 08/29/2024 Neck mass 08/29/2024 Primary hypertension 08/29/2024 Iron deficiency anemia 08/29/2024 Lymphadenopathy, axillary 08/29/2024 Encounters Date Type Department Care Team Description 02/06/2025 10:00 AM CDT Office Visit [facility] [address] [place] [address] Saige Winston APRN, Jose Gary MD Iron deficiency anemia, unspecified iron deficiency anemia type (Primary Dx); Nausea and vomiting, unspecified vomiting type; Cyst, dermoid, scalp and neck; Pain in joints of both feet; Ankylosing spondylitis of multiple sites in spine (HCC); Neck mass Discharge Disposition: Discharged to home or Selfcare 02/06/2025 9:00 AM CDT Lab [facility] [address] [place] [address] Saige Winston APRN, CNP Sandhu, Manpreet Kaur, MD Lymphadenopathy, axillary; Ankylosing spondylitis of multiple sites in spine (HCC); Iron deficiency anemia, unspecified iron deficiency anemia type Discharge Disposition: Discharged to home or Selfcare 02/06/2025 Travel 02/05/2025 3:30 PM CDT [facility] [address] [place] [address] Layne Maldonado APRN, CNP Cervical radiculopathy; Right hand pain; Right hand weakness Discharge Disposition: Discharged to home or Selfcare 02/05/2025 Travel 01/22/2025 Transcribe Orders [facility] Scheduling [address] [place] [address] Layne Maldonado APRN, CNP Cervical radiculopathy (Primary Dx); Right hand pain; Right hand weakness 01/01/2025 Travel 12/31/2024 [facility] [address] [place] [address] Jose Barber MD Medication Refill 11/23/2024 Results Follow-Up [facility] [address] [place] [address] Shwetha Brennan APRN, BARRIE HEPATITIS C ANTIBODY 11/21/2024 Travel from Last 3 Months Immunizations Immunization Administration Dates Next Due Covid-19, Mrna, Lnp-s, Pf, 3 0 Mcg/0.3 Ml Dose (Tag & See) 06/13/2021,11/11/2020,10/21/2020 Influenza Vaccine, Quadrivalent, PF 02/23/2023 Family History Medical History Relation Name Comments Colon Cancer Father Cancer Maternal Aunt Cancer Maternal Grandmother Relation Name Status Comments Father Alive Maternal Aunt Maternal Grandmother Mother Alive Social History Tobacco Use Types Packs/Day Years Used Date Smoking Tobacco: Former Cigarettes 0.3 25.5 S tarted: 08/30/1999 Smokeless Tobacco: Never Tobacco [...] Sign Reading Time Taken Comments Blood Pressure 115/80 02/06/2025 9:38 AM CDT Pulse 97 02/06/2025 9:38 AM CDT Temperature 37.1 C (98.8 F) 02/06/2025 9:38 AM CDT Respiratory Rate 16 02/06/2025 9:38 AM CDT Oxygen Saturation 97% 02/06/2025 9:38 AM CDT Inhaled Oxygen Concentration - - Weight 53.1 kg (117 lb) 02/06/2025 9:38 AM CDT Height 167.6 cm (5' 6) 02/06/2025 9:38 AM CDT Body Mass Index 18.88 02/06/2025 9:38 AM CDT Plan of Treatment Upcoming Encounters Date Type Department Care Team (Latest Contact Info) Description 03/15/2025 10:00 AM CDT Office Visit [facility] - Gastroenterology - [place] [address] [place] [address] Rc Whitt MD [address] [address] 05/01/2025 10:20 AM SHREDDING SPECIALIST Lab [facility] [address] [place] [address] Jose Barber MD [address] [place] [address] Discharge Disposition: Discharged to home or Selfcare 05/08/2025 9:00 AM SHREDDING SPECIALIST Office Visit [facility] [address] [place] [address] Jose Barber MD [address] [place] [address] Discharge Disposition: Discharged to home or Selfcare Health Maintenance Due Date Last Done Comments TdaP Immunization 1981 Hepatitis B Immunization (1 of 3 - 19+ 3-dose series) 2000 Human Papillomavirus (HPV) Immunization (1 - 3-dose SCDM series) 2008 Influenza Immunization (#1) 2025 02/23/2023 SARS-COV-2 Immunization (4 - season) 2025 06/13/2021, 11/11/2020, 10/21/2020 Respiratory Syncytial [...] Procedure Name Priority Date/Time Associated Diagnosis Comments CBC WITH AUTO DIFFERENTIAL Routine 02/06/2025 8:59 AM CDT Lymphadenopathy, axillary Ankylosing spondylitis of multiple sites in spine (HCC) Iron deficiency anemia, unspecified iron deficiency anemia type IRON,TRANSFERN,CALC.T IBC,%SAT Routine 02/06/2025 8:59 AM CDT Lymphadenopathy, axillary Ankylosing spondylitis of multiple sites in spine (HCC) Iron deficiency anemia, unspecified iron deficiency anemia type FERRITIN Routine 02/06/2025 8:59 AM CDT Lymphadenopathy, axillary Ankylosing spondylitis of multiple sites in spine (HCC) Iron deficiency anemia, unspecified iron deficiency anemia type CMP (COMPREHENSIVE METABOLIC PANEL) Routine 02/06/2025 8:59 AM CDT Lymphadenopathy, axillary Ankylosing spondylitis of multiple sites in spine (HCC) Iron deficiency anemia, unspecified iron deficiency anemia type COMPLETE BLOOD COUNT (CBC) WITH DIFF Routine 02/06/2025 8:59 AM CDT Lymphadenopathy, axillary Ankylosing spondylitis of multiple sites in spine (HCC) Iron deficiency anemia, unspecified iron deficiency anemia type EMG 1 EXTREMITY W/WO PARASPINAL RT Routine 02/05/2025 3:30 PM CDT Cervical radiculopathy Right hand pain Right hand weakness HEPATITIS C ANTIBODY Routine 11/23/2024 9:30 AM CDT Need for hepatitis C screening test from Last 3 Months Results * (ABNORMAL) IRON,TRANSFERN,CALC.TIBC,%SAT (02/06/2025 8:59 AM CDT) IRON 39 31 - 144 mcg/dL 02/06/2025 11:11 AM CDT [facility] TRANSFERRIN 191 174 - 364 mg/dL 02/06/2025 11:11 AM CDT [facility] TIBC, CALCULATED 239(L) 261 - 462 mcg/dL 02/06/2025 11:11 AM CDT [facility] % SATURATION * 16 15 - 62 % 02/06/2025 11:11 AM CDT [facility] Blood Venipuncture / Unknown 02/06/2025 8:59 AM CDT 02/06/2025 8:59 AM CDT us Jose Barber MD CHEMISTRY ORDERABLES Fin al Result [facility] [address] [place] [address] * (ABNORMAL) CBC WITH AUTO DIFFERENTIAL (02/06/2025 8:59 AM CDT) WBC 11.19 4.00 - 12.00 10(3)/mcL 02/06/2025 9:13 AM CDT [facility] RBC 4.59 4.40 - 5.80 10(6)/mcL 02/06/2025 9:13 AM CDT [facility] HEMOGLOBIN (HGB) 12.7(L) 13.0 - 16.5 g/dL 02/06/2025 9:13 AM CDT [facility] HEMATOCRIT (HCT) 40.1 38.0 - 50.0 % 02/06/2025 9:13 AM CDT [facility] MCV 87.4 82.0 - 96.0 fL 02/06/2025 9:13 AM CDT [facility] MCH 27.7 26.0 - 32.0 pg 02/06/2025 9:13 AM CDT [facility] MCHC 31.7 31.0 - 36.0 g/dL 02/06/2025 9:13 AM CDT [facility] PLATELET COUNT 500(H) 140 - 440 10(3)/mcL 02/06/2025 9:13 AM CDT [facility] RDW 17.9(H) 11.8 - 15.5 % 02/06/2025 9:13 AM CDT [facility] MPV 8.3 8.0 - 12.6 fL 02/06/2025 9:13 AM CDT [facility] NEUTROPHILS 69.4(H) 40.0 - 68.0 % 02/06/2025 9:13 AM CDT [facility] LYMPHOCYTES 20.2 19.0 - 49.0 % 02/06/2025 9:13 AM CDT [facility] MONOCYTES 8.0 3.0 - 13.0 % 02/06/2025 9:13 AM CDT [facility] EOSINOPHILS 1.4 0.0 - 8.0 % 02/06/2025 9:13 AM CDT [facility] BASOPHILS 0.6 0.0 - 1.0 % 02/06/2025 9:13 AM CDT [facility] IMMATURE GRANULOCYTE 0.4 0.0 - 0.4 % 02/06/2025 9:13 AM CDT [facility] ABSOLUTE NEUTROPHILS 7.77(H) 1.40 - 5.30 10(3)/[facility] 02/06/2025 9:13 AM CDT [facility] ABSOLUTE LYMPHOCYTES 2.26 0.90 - 3.30 10(3)/[facility] 02/06/2025 9:13 AM CDT [facility] ABSOLUTE MONOCYTES 0.89 0.10 - 0.90 10(3)/[facility] 02/06/2025 9:13 AM CDT [facility] ABSOLUTE EOSINOPHIL 0.16 0.00 - 0.50 10(3)/[facility] 02/06/2025 9:13 AM CDT [facility] ABSOLUTE BASOPHILS 0.07 0.00 - 0.10 10(3)/[facility] 02/06/2025 9:13 AM CDT [facility] ABSOLUTE IMMATURE GRANULOCYTE 0.04(H) 0.00 - 0.03 10 (3) [facility]. 02/06/2025 9:13 AM CDT [facility] NRBC PER 100 WBC 0 02/07/20 9:13 AM CDT [facility] Blood Venipuncture / Unknown 02/06/2025 8:59 AM CDT 02/06/2025 8:59 AM CDT Jose Barber MD HEMATOLOGY ORDERABLES Fi nal Result [facility] [address] [place] [address] * (ABNORMAL) FERRITIN (02/06/2025 8:59 AM CDT) [facility] FERRITIN 700(H) 22 - 274 ng/mL 02/06/2025 11:29 AM CDT [facility] Blood Venipuncture / Unknown 02/06/2025 8:59 AM CDT 02/06/2025 8:59 AM CDT Jose Barber MD CHEMISTRY ORDERABLES Fin al Result [facility] [address] [place] [address] * (ABNORMAL) CMP (COMPREHENSIVE METABOLIC PANEL) (02/06/2025 8:59 AM CDT) SODIUM 129(L) 136 - 145 mmol/L 02/06/2025 11:11 AM CDT [facility] POTASSIUM 3.8 3.5 - 5.1 mmol/L 02/06/2025 11:11 AM CDT [facility] CHLORIDE 99 98 - 107 mmol/L 02/06/2025 11:11 AM CDT [facility] CO2, VENOUS 22 22 - 30 mmol/L 02/06/2025 11:11 AM CDT [facility] ANION GAP 11.8 <18.0 mmol/L 02/06/2025 11:11 AM CDT [facility] GLUCOSE 116(H) 70 - 99 mg/dL 02/06/2025 11:11 AM CDT [facility] BUN 11 9 - 21 mg/dL 02/06/2025 11:11 AM CDT [facility] CREATININE, BLOOD 0.57(L) 0.70 - 1.30 mg/dL 02/06/2025 11:11 AM CDT [facility] BUN/CREATININE RATIO 19 12 - 20 ratio 02/06/2025 11:11 AM CDT [facility] TOTAL PROTEIN 8.1(H) 6.0 - 8.0 g/dL 02/06/2025 11:11 AM CDT [facility] ALBUMIN 4.1 3.5 - 5.0 g/dL 02/06/2025 11:11 AM CDT [facility] A/G RATIO 1.0 1.0 - 2.2 02/06/2025 11:11 AM CDT [facility] CALCIUM 9.7 8.7 - 10.5 mg/dL 02/06/2025 11:11 AM CDT [facility] T BILI 0.2 0.2 - 1.2 mg/dL 02/06/2025 11:11 AM CDT [facility] SGOT (AST) 14 <43 U/L 02/06/2025 11:11 AM T [facility] SGPT (ALT) 14 <56 U/L 02/06/2025 11:11 AM T [facility] ALKALINE PHOSPHATASE 82 40 - 150 U/L 02/06/2025 11:11 AM [facility] IS THE PATIENT REQUIRED TO BE FASTING? No 02/06/2025 11:11 AM CDT [facility] GFR, ESTIMATED >60 >=60 02/06/2025 11:11 AM T [facility] Comment: Creatinine Clearance is the preferred criteria for selecting drug dose adjustments in renally impaired patients. The GFR is provided as additional pertinent clinical information. GFR is reported in mL/min/1.73 sq m. Calculation based on the 2020 Chronic Kidney Disease Epidemiology Collaboration (CKD-EPI) equation refit without adjustment for race. GFR, EST. >60 >=60 11:11 AM [facility] Comment: Creatinine Clearance is the preferred criteria for selecting drug dose adjustments in renally impaired patients. The GFR is provided as additional pertinent clinical information. GFR is reported in mL/min/1.73 sq m. Calculation based on the 2009 Chronic Kidney Disease Epidemiology Collaboration (CKD-EPI). GFR, EST. NONAFRICAN >60 >=60 02/06/2025 11:11 AM [facility] Comment: Creatinine Clearance is the preferred criteria for selecting drug dose adjustments in renally impaired patients. The GFR is provided as additional pertinent clinical information. GFR is reported in mL/min/1.73 sq m. Calculation based on the 2009 Chronic Kidney Disease Epidemiology Collaboration (CKD-EPI). Blood Venipuncture / Unknown 02/06/2025 8:59 AM CDT 02/06/2025 8:59 AM CDT Jose Barber MD CHEMISTRY ORDERABLES Fin al Result [facility] [address] [place] [address] * EMG 1 EXTREMITY W/WO PARASPINAL RT (02/05/2025 3:30 PM CDT) Narrative Paul Fermin MD - 02/05/2025 3:30 PM CDT Paul Fermin MD 02/08/2025 9:17 AM Electromyogram Procedure Note Date of Procedure: 02/05/2025 Pre-operative Diagnosis: bilateral upper extremity pain and weakness. Post-operative Diagnosis: Indications: Diagnostic Procedure Details Motor Nerve Conduction Studies: The bilateral median motor nerve shows normal distal motor latency, normal motor amplitude and normal conduction velocity. The bilateral ulnar motor nerve shows normal distal motor latency, normal motor amplitude and normal conduction velocity. F waves: F wave latencies for the bilateral median nerve were normal. F wave latencies for the bilateral ulnar nerve were normal. Sensory Nerve Conduction Studies: The bilateral radial sensory nerve shows normal sensory nerve peak latency and normal sensory amplitude. Median ulnar comparisons were normal, bilaterally. Median radial comparisons were normal, bilaterally. The bilateral median sensory nerve shows normal sensory nerve peak latency and normal sensory amplitude. The bilateral ulnar sensory nerve shows normal sensory nerve peak latency and normal sensory amplitude. EMG: Needle EMG of the right deltoid, biceps, triceps, FDI and APB were normal. Summary This is a normal study without evidence of compression neuropathy of bilateral upper extremities. There was no evidence of radiculopathy of right upper extremity. Clinical correlation is recommended. Layne Maldonado MEDICAL OFFICE REP, WILDLIFE BIOSTATION RESEARCH ECOLOGIST NEUROLOGY ORDERABLES Final Result * HEPATITIS C ANTIBODY (11/23/2024 9:30 AM CDT) hepatitis C antibody 0.32 <1 S/CO 11/23/2024 3:24 PM CDT [facility] Comment: Signal/Cutoff ratio < 0.79 is Nondetected Signal/Cutoff ratio 0.80-0.99 is Grayzone Signal/Cutoff ratio > 0.99 is Detected Supplemental assays are recommended if signal/cutoff ratio is >/=1.00. Signal/cutoff ratio result >/= 5.00 is 97% predictive of positivity for recombinant immunoblot assay (RIBA) and will be reported to the [place] Department of Public Health as required. Blood Venipuncture / Unknown 11/23/2024 9:30 AM CDT 11/23/2024 10:15 AM CDT us Veronika Kirk APRN, BARRIE CHEMISTRY ORDERABL ES Final Result [facility] [address] [place] [address], [place] from Last 3 Months Insurance MEDICAID [employer] [facility] Care Teams Job Boss Relationship Specialty Start Date End Date Vania Herrera APRN, CNP [address] [place], [place] [id number] PCP - General Advanced Practice Nurse 08/29/24 Sonja Muñiz MD [address] [address] Consulting Physician Otolaryngology 11/10/24
--- OUTSIDE RECORDS SUMMARY | 2025-02-17 12:07 | XMS_ITS ---
Author Organization [facility] Address [address] [place] [address] Phone Care Team Providers Care Dinkey Engine Operator Name Role Phone Vania Herrera APRN, CERTIFIED LACTATION EDUCATOR Primary Care Provider + Sonja Muñiz MD Unavailable [phone] [facility] Status:Enrolled (Active) Start date:11/03/2024 Enrollment date:11/03/2024 Related social drivers of health:Social Connections, Alcohol Use, Tobacco Use, Financial Resource Strain, Depression, Stress, Physical Activity, Food Insecurity, Transportation Needs, Housing Stability, Utilities Related service episodes:Jeremy [facility] Service Episode (Closed) Continued Care and Services Coordination
--- OUTSIDE RECORDS SUMMARY | 2025-02-17 12:07 | XMS_ITS | Encounter Summary ---
Author Organization [facility] Address [address] [facility] [place] [address] Phone Care Team Providers Care Modern Dancer Name Role Phone HerreraVania APRN, BARRIE Primary Care Provider + Sonja Muñiz MD Unavailable [phone] Reason for Visit * Reason Comments Medication Refill Encounter Details Date Type Department Care Team (Late st Contact Info) Description 12/31/2024 Refill [facility] [address] [place] [address] Jose Barber MD [address] [place] [address] Medication Refill Social History Tobacco Use Types Packs/Day Years Used Date Smoking Tobacco: Former Cigarettes 0.3 25.5 S tarted: 08/30/1999 Smokeless Tobacco: Never Comments:11/15/24-Quit [...] Description 03/15/2025 10:00 AM CDT [facility] - [place] [address] [place] [address] Rc Whitt MD [address] [address] 05/01/2025 10:20 AM WATCH REPAIR TECHNICIAN Lab [facility] On[facility] [address] [place] [address] Jose Barber MD [address] [place] [address] Discharge Disposition: Discharged to home or Selfcare 05/08/2025 9:00 AM WATCH REPAIR TECHNICIAN Office Visit [facility] [address] [place] [address] Jose Barber MD [address] [place] [address] Discharge Disposition: Discharged to home or Selfcare documented as of this encounter Goals Goal Patient Goal Type Associated Problems Recent Progress Patient-Stated? Author Chronic Disease Management Chronic Disease Management Emma Wray, RN Note: To effectively check in with [facility] Remote Patient Monitoring Hypertension program via text on Wednesday and Wednesday at 2:30. pm. documented as of this encounter Visit Diagnoses Not on filedocumented in this encounter Care Teams Modern Dancer Relationship Specialty Start Date End Date Vania Herrera, YARD COUPLER, MGMT SPECIALIST [address] [place] [address] PCP - General Advanced Practice Nurse 08/29/24 Sonja Muñiz MD [address] [facility] [address] [address] Consulting Physician Otolaryngology 11/10/24 documented as of this encounter
== END 2025-02-17 12:05 | disposition home or self-care (01) ==
LOC: CHSIMG 12:05
PROVIDERS: PCP Nurse Practitioner Family; Visit Provider Nurse Practitioner Adult Health
DX: R29.898 Other symptoms and signs involving the musculoskeletal system (principal); M54.12 Radiculopathy, cervical region
CPT/HCPCS: 72141

== ENCOUNTER 2025-03-01 09:48 | Outpatient (CLI) | payer OTHER, SELFPAY ==
--- OUTSIDE RECORDS SUMMARY | 2025-03-01 10:58 | XMS_ITS | Encounter Summary ---
Author Organization [facility] Address [address] [facility] [place] [address] Phone Care Team Providers Care Liquefaction And Regasification Helper Name Role Phone HerreraVania APRN, BARRIE Primary Care Provider + Sonja Muñiz MD Unavailable [phone] Reason for Visit * Reason Comments Medication Refill Encounter Details Date Type Department Care Team (Late st Contact Info) Description 12/31/2024 [facility]ill [facility] [address] [place] [address] Jose Barber MD [address] [place] [address] Medication Refill Social History Tobacco [...] Department Care Team (Latest Contact Info) Description 03/02/2025 11:20 AM CDT Telemedicine [facility] [address] [place] [phone] 03/15/2025 10:00 AM CDT Office Visit [facility] - Gastroenterology [facility] [address] [place] [address] Rc Whitt MD [address] [address] 05/01/2025 10:20 AM DIRECTOR OF LAND Lab [facility] Oncology Services [address] [place] [address] Jose Barber MD [address] [place] [address] Discharge Disposition: Discharged to home or Selfcare 05/08/2025 9:00 AM DIRECTOR OF LAND Office Visit [facility] Oncology Services [address] [place] [address] Jose Barber MD [address] [place] [address] Discharge Disposition: Discharged to home or Selfcare documented as of this encounter Goals Goal Patient Goal Type Associated Problems Recent Progress Patient-Stated? Author Chronic Disease Management Chronic Disease Management Emma Wray, RN Note: To effectively check in with [facility] Hypertension program via text on Wednesday and Wednesday at 2:30. pm. documented as of this encounter Visit Diagnoses Not on filedocumented in this encounter Care Teams Liquefaction And Regasification Helper Relationship Specialty Start Date End Date Vania Herrera APRN, BARRIE [address] [place] [address] PCP - General Advanced Practice Nurse 08/29/24 Sonja Muñiz MD [address] [facility] [address] [phone] Consulting Physician Otolaryngology 11/10/24 documented as of this encounter
--- OUTSIDE RECORDS SUMMARY | 2025-03-01 10:58 | XMS_ITS | Clinical Summary ---
Author Organization [facility] Address [address] [facility] [place] [address] Care Team Providers Care Plating Tank Operator Apprentice Name Role Phone Unavailable Primary Care Provider Unavailabl e Source Comments [facility],non-owned Affiliates and Associated Physician Practices is amultiple site organization consisting of ambulatory clinics and hospital sitesin [place], [place], [place] and [place]. This disclosure is being madepursuant to the Care Everywhere program and may not contain all information available regarding this patient. Last updated 18.[facility] Encounters Date Type Department Care Team Description 02/07/2025 Transcribe Orders [facility] Rheumatology [address] [place] [address], [address] [place] [address] Group, [facility] Ankylosing spondylitis, unspecified site of spine (HCC) ; Pain in joints of both feet 02/06/2025 Telephone [facility] Rheumatology [address] [place] [address] Karmen Perales MD Referral from Last 3 Months Social History Tobacco Use Types Packs/Day Years Used Date Smoking Tobacco: Never Assessed Sex and Gender Information Value Date Recorded Sex Assigned at Not on file Legal Sex Male 5:33 AM SILO OPERATOR Gender Identity Not on file Sexual Orientation Not on file Plan of Treatment Upcoming Encounters Date Type Department Care Team (Late st Contact Info) Description 03/22/2025 9:40 AM SILO OPERATOR Office Visit [facility] Rheumatology [address] [place], [place] [address]evue [facility], [address] [place] [address] Leandro Higgins DO [address] [facility] [address] [place] [address] Health Maintenance Due Date Last [...]
--- OUTSIDE RECORDS SUMMARY | 2025-03-01 10:58 | XMS_ITS ---
Author Organization [facility] Address [address] [place] [address] Phone Care Team Providers Care Biological Aide Name Role Phone Vania Herrera APRN, OVERNIGHT CAREGIVER Primary Care Provider + Sonja Muñiz MD Unavailable [facility] Chronic Condition Monitoring Status:Enrolled (Active) Start date:11/03/2024 Enrollment date:11/03/2024 Related social drivers of health:Social Connections, Alcohol Use, Tobacco Use, Financial Resource Strain, Depression, Stress, Physical Activity, Food Insecurity, Transportation Needs, Housing Stability, Utilities Related service episodes:Jeremy [facility] Service Episode (Closed) Continued Care and Services Coordination
--- OUTSIDE RECORDS SUMMARY | 2025-03-01 10:58 | XMS_ITS | Clinical Summary ---
Author Organization [facility] Address [address] [place] [address] Phone Care Team Providers Care Floor Worker Well Service Name Role Phone Vania Herrera APRN, CROSSING SUPERVISOR Primary Care Provider + Sonja Muñiz MD Unavailable [phone] Allergies No known active allergies Medications [...] 2 mg by mouth 2 times daily. Active oxybutynin (DITROPAN-XL) 5 MG TABLET SR 24 HR Take 5 mg by mouth daily. 5 Active meloxicam (MOBIC) 15 MG Tablet Take 1 Tablet by mouth daily. Active ondansetron (ZOFRAN-ODT) 4 MG TABLET DISPERSIBLE Take 4 mg by mouth. 5 Active sildenafil citrate (VIAGRA) 25 MG Tablet Take 25 mg by mouth as needed for Erectile Dysfunction. ADMINISTER 30 MINUTES TO 4 HOURS BEFORE ACTIVITY Active LORazepam (ATIVAN) 0.5 MG Tablet Take 0.5 mg by mouth 2 times daily as needed for Anxiety. 5 Active meclizine (ANTIVERT) 12.5 MG Tablet Take 12.5 mg by mouth 2 times daily as needed for Dizziness. 5 Active ibuprofen (MOTRIN) 800 MG Tablet Take 800 mg by mouth every 8 hours as needed for Mild or more severe pain. Active hydrOXYzine (VISTARIL) 50 MG Capsule Take 50 mg by mouth 3 times daily as needed for Anxiety. Active Active Problems Problem Noted Date Diagnosed Date Nausea and vomiting 02/06/2025 Cyst, dermoid, scalp and neck 10/30/2024 Ankylosing spondylitis of multiple sites in spin e 09/29/2024 Lung nodules 09/29/2024 Pain in joints of both feet 08/29/2024 Bone lesion 08/29/2024 Neck mass 08/29/2024 Primary hypertension 08/29/2024 Iron deficiency anemia 08/29/2024 Lymphadenopathy, axillary 08/29/2024 Encounters Date Type Department Care Team Description 02/25/2025 Travel 02/06/2025 10:00 AM CDT Office Visit [facility] Oncology Services [address] [place] [address] Saige Winston, BUSINESS ADMINISTRATOR, CROSSING SUPERVISOR Jose Barber MD Iron deficiency anemia, unspecified iron deficiency anemia type (Primary Dx); Nausea and vomiting, unspecified vomiting type; Cyst, dermoid, scalp and neck; Pain in joints of both feet; Ankylosing spondylitis of multiple sites in spine (HCC); Neck mass Discharge Disposition: Discharged to home or Selfcare 02/06/2025 9:00 AM CDT Lab [facility] Oncology Services [address] [place] [address] Saige Winston APRN, CNP Sandhu, Manpreet Kaur, MD Lymphadenopathy, axillary; Ankylosing spondylitis of multiple sites in spine (HCC); Iron deficiency anemia, unspecified iron deficiency anemia type Discharge Disposition: Discharged to home or Selfcare 02/06/2025 Travel 02/05/2025 3:30 PM CDT EMG [facility] [address] [place] [address] Layne Maldonado APRN, CNP Cervical radiculopathy; Right hand pain; Right hand weakness Discharge Disposition: Discharged to home or Selfcare 02/05/2025 Travel 01/22/2025 Transcribe Orders [facility] Central Scheduling [address] [place] [address] Layne Maldonado APRN, CNP Cervical radiculopathy (Primary Dx); Right hand pain; Right hand weakness 01/01/2025 Travel 12/31/2024 Refill [facility] [address] [place] [address] Jose Barber MD Medication Refill from Last 3 Months Immunizations Immunization Administration Dates Next Due Covid-19, Mrna, Lnp-s, Pf, 3 0 Mcg/0.3 Ml Dose (atHomestars) 06/13/2021,11/11/2020,10/21/2020 Influenza Vaccine, Quadrivalent, PF 02/23/2023 Family [...] 11:20 AM CDT Telemedicine [facility] [address] [place] [phone] 03/15/2025 10:00 AM CDT Office Visit [facility] [address] [place] [address] Rc Whitt MD [address] [address] 05/01/2025 10:20 AM SUPERVISOR WATER TREATMENT PLANT [facility] [address] [place] [address] Jose Barber MD [address] [place] [address] Discharge Disposition: Discharged to home or Selfcare 05/08/2025 9:00 AM SUPERVISOR WATER TREATMENT PLANT [facility] [address] [place] [address] Jose Barber MD [address] [place] [address] Discharge Disposition: Discharged to home or Selfcare [...] RN Note: To effectively check in with [facility] Remote Patient Monitoring Hypertension program via [...] 1 EXTREMITY W/WO PARASPINAL RT Routine 02/05/2025 12:00 AM CDT Cervical radiculopathy Right hand pain Right hand weakness HEPATITIS C ANTIBODY Routine 11/23/2024 9:30 AM CDT Need for hepatitis C screening test from Last 3 Months or Most Recently Relevant to Health Maintenance Results * (ABNORMAL) IRON,TRANSFERN,CALC.TIBC,%SAT (02/06/2025 8:59 AM CDT) IRON 39 31 - 144 mcg/dL 02/06/2025 11:11 AM CDT [facility] TRANSFERRIN 191 174 - 364 mg/dL 02/06/2025 11:11 AM CDT [facility] TIBC, CALCULATED 239(L) 261 - 462 mcg/dL 02/06/2025 11:11 AM CDT [facility] % SATURATION * 16 15 - 62 % 02/06/2025 11:11 AM CDT [facility] Blood Venipuncture / Unknown 02/06/2025 8:59 AM CDT 02/06/2025 8:59 AM CDT us Jose Barber MD CHEMISTRY ORDERABLES Fin al Result [facility] [address] [place] [address] * (ABNORMAL) CBC WITH AUTO DIFFERENTIAL (02/06/2025 8:59 AM CDT) WBC 11.19 4.00 - 12.00 10(3)/[facility] 02/06/2025 9:13 AM CDT [facility] RBC 4.59 4.40 - 5.80 10(6)/[facility] 02/06/2025 9:13 AM CDT [facility] HEMOGLOBIN (HGB) 12.7(L) 13.0 - 16.5 g/dL 02/06/2025 9:13 AM CDT [facility] HEMATOCRIT (HCT) 40.1 38.0 - 50.0 % 02/06/2025 9:13 AM CDT [facility] MCV 87.4 82.0 - 96.0 fL 02/06/2025 9:13 AM CDT [facility] MCH 27.7 26.0 - 32.0 pg 02/06/2025 9:13 AM CDT [facility] MCHC 31.7 31.0 - 36.0 g/dL 02/06/2025 9:13 AM CDT [facility] PLATELET COUNT 500(H) 140 - 440 10(3)/[facility] 02/06/2025 9:13 AM CDT [facility] RDW 17.9(H) 11.8 - 15.5 % 02/06/2025 9:13 AM CDT [facility] MPV 8.3 8.0 - 12.6 fL 02/06/2025 9:13 AM CDT [facility] NEUTROPHILS 69.4(H) 40.0 - 68.0 % 02/06/2025 9:13 AM CDT [facility] LYMPHOCYTES 20.2 19.0 - 49.0 % 02/06/2025 9:13 AM CDT [facility] MONOCYTES 8.0 3.0 - 13.0 % 02/06/2025 9:13 AM CDT [facility] EOSINOPHILS 1.4 0.0 - 8.0 % 02/06/2025 9:13 AM CDT [facility] BASOPHILS 0.6 0.0 - 1.0 % 02/06/2025 9:13 AM CDT [facility] IMMATURE GRANULOCYTE 0.4 0.0 - 0.4 % 02/06/2025 9:13 AM CDT [facility] ABSOLUTE NEUTROPHILS 7.77(H) 1.40 - 5.30 10(3)/[facility] 02/06/2025 9:13 AM CDT [facility] ABSOLUTE LYMPHOCYTES 2.26 0.90 - 3.30 10(3)/[facility] 02/06/2025 9:13 AM CDT [facility] ABSOLUTE MONOCYTES 0.89 0.10 - 0.90 10(3)/[facility] 02/06/2025 9:13 AM CDT [facility] ABSOLUTE EOSINOPHIL 0.16 0.00 - 0.50 10(3)/[facility] 02/06/2025 9:13 AM CDT [facility] ABSOLUTE BASOPHILS 0.07 0.00 - 0.10 10(3)/[facility] 02/06/2025 9:13 AM CDT [facility] ABSOLUTE IMMATURE GRANULOCYTE 0.04(H) 0.00 - 0.03 10 (3) [facility]. 02/06/2025 9:13 AM CDT [facility] NRBC PER 100 WBC 0 02/07/20 9:13 AM CDT [facility] Blood Venipuncture / Unknown 02/06/2025 8:59 AM CDT 02/06/2025 8:59 AM CDT Jose Barber MD HEMATOLOGY ORDERABLES Fi nal Result [facility] [address] [place] [address] * (ABNORMAL) FERRITIN (02/06/2025 8:59 AM CDT) FERRITIN 700(H) 22 - 274 ng/mL 02/06/2025 11:29 AM CDT [facility] Blood Venipuncture / Unknown 02/06/2025 8:59 AM CDT 02/06/2025 8:59 AM CDT Jose Barber MD CHEMISTRY ORDERABLES Fin al Result Performing Organization Address [facility]/ZIP Co de Phone Number [facility] [address] [place] [address] * (ABNORMAL) CMP (COMPREHENSIVE METABOLIC PANEL) (02/06/2025 8:59 AM CDT) SODIUM 129(L) 136 - 145 mmol/L 02/06/2025 11:11 AM CDT [facility] POTASSIUM 3.8 3.5 - 5.1 mmol/L 02/06/2025 11:11 AM CDT [facility] CHLORIDE 99 98 - 107 mmol/L 02/06/2025 11:11 AM CDT [facility] CO2, VENOUS 22 22 - 30 mmol/L 02/06/2025 11:11 AM CDT [facility] ANION GAP 11.8 <18.0 mmol/L 02/06/2025 11:11 AM CDT [facility] GLUCOSE 116(H) 70 - 99 mg/dL 02/06/2025 11:11 AM CDT [facility] BUN 11 9 - 21 mg/dL 02/06/2025 11:11 AM CDT [facility] CREATININE, BLOOD 0.57(L) 0.70 - 1.30 mg/dL 02/06/2025 11:11 AM [facility] BUN/CREATININE RATIO 19 12 - 20 ratio 02/06/2025 11:11 AM [facility] TOTAL PROTEIN 8.1(H) 6.0 - 8.0 g/dL 02/06/2025 11:11 AM [facility] ALBUMIN 4.1 3.5 - 5.0 g/dL 02/06/2025 11:11 AM [facility] A/G RATIO 1.0 1.0 - 2.2 02/06/2025 11:11 AM [facility] CALCIUM 9.7 8.7 - 10.5 mg/dL 02/06/2025 11:11 AM [facility] T BILI 0.2 0.2 - 1.2 mg/dL 02/06/2025 11:11 AM [facility] SGOT (AST) 14 <43 U/L 02/06/2025 11:11 AM [facility] SGPT (ALT) 14 <56 U/L 02/06/2025 11:11 AM [facility] ALKALINE PHOSPHATASE 82 40 - 150 U/L 02/06/2025 11:11 AM [facility] IS THE PATIENT REQUIRED TO BE FASTING? No 02/06/2025 11:11 AM [facility] GFR, ESTIMATED >60 >=60 02/06/2025 11:11 AM [facility] Comment: Creatinine Clearance is the preferred criteria for selecting drug dose adjustments in renally impaired patients. The GFR is provided as additional pertinent clinical information. GFR is reported in mL/min/1.73 sq m. Calculation based on the 2020 Chronic Kidney Disease Epidemiology Collaboration (CKD-EPI) equation refit without adjustment for race. GFR, EST. >60 >=60 025 11:11 AM [facility] Comment: Creatinine Clearance is the preferred criteria for selecting drug dose adjustments in renally impaired patients. The GFR is provided as additional pertinent clinical information. GFR is reported in mL/min/1.73 sq m. Calculation based on the 2009 Chronic Kidney Disease Epidemiology Collaboration (CKD-EPI). GFR, EST. NONAFRICAN >60 >=60 02/06/2025 11:11 AM CDT [facility] Comment: Creatinine Clearance is the [...] MD CHEMISTRY ORDERABLES Fin al Result [facility] [address] [place] [address] * EMG 1 EXTREMITY W/WO PARASPINAL RT (02/05/2025 12:00 AM CDT) 02/05/2025 Narrative SCAN - 02/05/2025 12:00 AM CDT Paul Fermin MD 02/08/2025 9:17 AM [...] right upper extremity. Clinical correlation is recommended. us Layne Maldonado APRN, CNP NEUROLOGY ORDERABLES Final Result SCAN * HEPATITIS C ANTIBODY (11/23/2024 9:30 AM CDT) hepatitis C antibody 0.32 <1 S/CO 11/23/2024 3:24 PM CDT [facility] Comment: Signal/Cutoff ratio < 0.79 is Nondetected Signal/Cutoff ratio 0.80-0.99 is Grayzone Signal/Cutoff ratio > 0.99 is Detected Supplemental assays are recommended if signal/cutoff ratio is >/=1.00. Signal/cutoff ratio result >/= 5.00 is 97% predictive of positivity for recombinant immunoblot assay (RIBA) and will be reported to the [place] Department of Public Health as required. Blood Venipuncture / Unknown 11/23/2024 9:30 AM CDT 11/23/2024 10:15 AM CDT us Veronika Kirk APRN, BARRIE CHEMISTRY ORDERABL ES Final Result Performing Organization Address City/[facility] Co de Phone Number [facility] [address] [place] [address], [place] from Last 3 Months or Most Recently Relevant to Health Maintenance Insurance MEDICAID [facility] [facility] Care Teams Floor Worker Well Service Relationship Specialty Start Date End Date Vania Herrera APRN, CROSSING SUPERVISOR [address] [place] [address] PCP - General Advanced Practice Nurse 08/29/24 Sonja Muñiz MD [address] [id number] Consulting Physician Otolaryngology 11/10/24
--- OUTSIDE RECORDS SUMMARY | 2025-03-01 10:58 | XMS_ITS | Clinical Summary ---
Author Organization [facility] Address [facility] [place] [address] Care Team Providers Care Community Relations Liaison Name Role Phone Vilma Cravenn Kaitlyn MANAGER INTENSIVE CARE Primary Care Provider Allergies No known active [...] - 2024-2 6 season) 2025 11/11/2020, 10/21/2020 Influenza Adult (#1) 2025 Meningococcal B Vaccine Aged Out No l onger eligible based on patient's age to complete this topic Meningococcal Vaccine Aged Out No charleen chapo eligible based on patient's age to complete this topic RSV Immunizations Under 20 Months Aged Out No longer eligible b ased on patient's age to complete this topic Insurance [facility] [facility] Care Teams Community Relations Liaison Relationship Specialty Start Date End Date Marely Craven [place] [address] PCP - General NURSE PRACTITIONER 12/16/20
--- OUTSIDE RECORDS SUMMARY | 2025-03-01 10:58 | XMS_ITS | Encounter Summary ---
Author Organization [facility] Address [address] [place] [address] Phone Care Team Providers Care Photo Technologist Name Role Phone Vania Herrera APRN, BARRIE Primary Care Provider + Sonja Muñiz MD Unavailable [phone] Reason for Visit * Reason Onset Date Comments Prior Authorization 10/10/2024 Encounter Details Date Type Department Care Team (Late st Contact Info) Description 10/10/2024 Telephone [facility] Out[facility] [address] [place] [address] Jose Barber MD [address] [place] [address] Prior Authorization Social History Tobacco Use Types [...] 3:14 PM CDT Spoke to Timmy from [facility] on follow up for requested Peer to Peer. Per Dr Barber she will review chart and attempt a Peer to Peer if she can provide additional details. * Telephone Encounter - Ingrid De León - 10/10/2024 8:39 AM CDT Auth Denied-P2P offered Ordering Provider: Internal Appointment Info: Clinic: [facility] PET Clinic Provider: [id number] Appt Date/Time: Friday October 11, 2024 12:00 PM Payor + Plan: MEDICAID [facility] MEDICAID CPT/Test: [address] Authorization denied through: [employer] Phone number called: website Reference number / senior customer service representative's name and time of call: [phone] Estimated Amount [Full Charges]: 31382.00 Reason for denial: Imaging (Positron Emissions Tomography) is indicated to check a single growth (nodule) greater than 0.8 cm (centimeters) and not larger than four cm only. Your records show that this does not apply to you. [facility] does not cover this study for screening of cancer. This finding was based on review of [facility] Clinical Policy Bulletin (CPB) Number 0071: Positron Emission Tomography (PET). Add'l Steps Taken (Pt Notified, Reached out to Provider, etc.): sent t/e to provider and corn crop supervisor Peer to Peer review offered by Payer: Yes Peer to Peer review expires: 10/20/2024 Case #: [id number] Phone #: [phone] Ordering Provider: Jose Barber MD Phys. Notified? Yes Note for ordering office: If patient wishes to cancel the appointment, please complete cancellationprocess from the patient's appointment desk. Notification Made to Patient: yes documented in this encounter Plan of Treatment Upcoming Encounters Date Type Department Care Team (Latest Contact Info) Description 03/02/2025 11:20 AM CDT Telemedicine [facility] [address] [place] [address] 03/15/2025 10:00 AM CDT Office Visit [facility] - Gastroenterology [facility] [address] [place] [address] Rc Whitt MD [address] [address] 05/01/2025 10:20 AM CLIENT SERVER DEVELOPER Lab [facility] Oncology Services [address] [place] [address] Jose Barber MD [address] [place] [address] Discharge Disposition: Discharged to home or Selfcare 05/08/2025 9:00 AM CLIENT SERVER DEVELOPER Office Visit [facility] Oncology Services [address] [place] [address] Jose Barber MD [address] [place] [address] Discharge Disposition: Discharged to home or Selfcare documented as of this encounter Visit Diagnoses Not on filedocumented in this encounter Care Teams Photo Technologist Relationship Specialty Start Date End Date Vania Herrera, SHOP TEACHER, DIRECTOR OF CATERING [address] [place] [address] PCP - General Advanced Practice Nurse 08/29/24 Sonja Muñiz MD [address] [facility] [address] [address] Consulting Physician Otolaryngology 11/10/24 documented as of this encounter
[2025-03-01 14:44] LABS: Hepatitis B Surface Antigen Negative (Negative)
[2025-03-01 15:01] LABS: HIV 1/2 Ab P24 Ag Result Negative (Negative)
== END 2025-03-01 09:49 | disposition home or self-care (01) ==
LOC: CHSLAB 09:48
PROVIDERS: PCP Family Medicine; Visit Provider Family Medicine
DX: B19.20 Unspecified viral hepatitis C without hepatic coma (principal)
CPT/HCPCS: 36415; 86703; 86803; 87340